=== PATIENT | male | born 1940 | race Caucasian/White ===

== ENCOUNTER 2020-02-06 10:48 | Outpatient (CLI) | payer MEDICARE, SELFPAY ==
--- NOTE | ~2020-02-06 | CT_ITS ---
EXAMINATION: CT brain wo con DATE: 02/06/2020 11:28 INDICATION: Impaired balance, gait, in appearance. Decreased functional mobility. TECHNIQUE: Computed tomography (CT) of the head was performed without intravenous contrast. The mA wa s adjusted according to patient size. Iterative reconstruction technique was employed. Exam dose: 68 1.00 mGy-cm total exam DLP. COMPARISON: None FINDINGS: No intracranial mass lesion or hemorrhage or cerebrovascular accident. No midline shift or mass effect. Mild nonspecific diminished attenuation of the cerebral white matter is likely due to ch ronic small vessel ischemic changes. Mild cerebral atherosclerosis. There is mild to moderate cerebral and cerebellar volume loss not inconsistent with age. No subdural or epidural hematoma. No fracture or bone destruction of the cranial vault. Included paranasal sinuses and mastoid air cell s are unremarkable. IMPRESSION: Cerebral atherosclerosis and chronic small vessel ischemic changes of the cerebral white matter Examination is unremarkable for age. Reviewed, dictated and finalized at Location [facility]. Reviewed, dictated and finalized at location A.
[2020-02-06 12:07] LABS: Alanine Aminotransferase 82 U/L (4-50); Albumin Level 3.8 g/dL (3.5-5.1); Alkaline Phosphatase 61 U/L (38-126); Aspartate Amino Transferase 66 U/L (17-59); Bilirubin,Total 0.8 mg/dL (0.2-1.3); Blood Urea Nitrogen 16 mg/dL (9-20); Calcium 8.9 mg/dL (8.4-10.2); Carbon Dioxide 30 mmol/L (22-30); Chloride 103 mmol/L (98-107); Estimated Glomerular Filt Rate 53; Glucose 85 mg/dL (75-110); Potassium 4.3 mmol/L (3.4-5.0); Sodium 138 mmol/L (137-145)
[2020-02-06 13:07] LABS: Free T4 Free Thyroxine 1.43 ng/mL (0.78-2.19)
== END 2020-02-06 10:49 | disposition home or self-care (01) ==
PROVIDERS: PCP Internal Medicine; Visit Provider Internal Medicine
DX: Z74.09 Other reduced mobility (principal); I10 Essential (primary) hypertension; E03.9 Hypothyroidism, unspecified; I67.2 Cerebral atherosclerosis
CPT/HCPCS: 36415; 70450; 80053; 84439; 84443

== ENCOUNTER 2020-03-05 13:30 | Outpatient (RCR) | payer MEDICARE, SELFPAY ==
[2020-02-15 13:04] VITALS: BMI 28.7
--- NOTE | 2020-03-05 12:50 | PCWOUND ---
WOCN NOTE patient did not show up for scheduled appointment. WOCN spoke with patient yesterday 03/04/20 about appointment for today. Call made to patient, patient states he had an ablation done and can not move. Patient will contact wound center if appointment is needed in the future.
== END 2020-05-06 07:43 | disposition home or self-care (01) ==
LOC: ANHWOC 13:30
PROVIDERS: PCP Internal Medicine; Visit Provider Internal Medicine
DX: K61.1 Rectal abscess (principal)
CPT/HCPCS: 99212; G0463

== ENCOUNTER 2020-05-16 09:16 | Outpatient (CLI) | payer MEDICARE, SELFPAY ==
--- NOTE | ~2020-05-16 | MR_ITS ---
EXAMINATION: MR brain/brain stem wo/w con DATE: 05/16/2020 11:25 INDICATION: Tremor. Vertigo. Cognitive disorder. Dizziness. TECHNIQUE: Magnetic resonance imaging (MRI) of the brain and brainstem was performed without and with 15 mL MultiHance intravenous contrast. Sequences included sagittal and axial T1-weighted FSE, axial diffusion-weighted FS EPI, axial T2*-weighted GRE, axial T2-weighted FLAIR Propeller, and axial T2-we ighted Propeller. Postcontrast sequences included axial and coronal T1-weighted FSE. Apparent diffusi on coefficient (ADC) maps were created. COMPARISON: Head CT 02/06/2020 FINDINGS: There are old infarcts in the cerebellum bilaterally. There are scattered areas of nonspeci fic increased T2-weighted signal intensity in the cerebral white matter. There is no intracranial hem orrhage, acute infarction, or abnormal intracranial mass lesion. The ventricles are normal in size. T here are likely changes of ocular lens replacement surgeries. The paranasal sinuses are clear. There is a trace right mastoid effusion. IMPRESSION: 1. Old infarcts in the cerebellum. 2. Moderate nonspecific cerebral white matter disease, which likely represents chronic small vessel i schemic disease. Reviewed, dictated and finalized at location A. IMPRESSION: 1. Old infarcts in the cerebellum. 2. Moderate nonspecific cerebral white matter disease, which likely represents chronic small vessel ischemic disease.
--- NOTE | ~2020-05-16 | MR_ITS ---
EXAMINATION: MR cervical spine wo/w con DATE: 05/16/2020 11:25 INDICATION: Tremor, vertigo, dizziness, cognitive disorder. TECHNIQUE: Magnetic resonance imaging (MRI) of the cervical spine was performed without and with 15 m L MultiHance intravenous contrast. Sequences included sagittal and axial T2-weighted FSE, sagittal ST IR FSE, and sagittal and axial T1-weighted FSE. Postcontrast sequences included sagittal and axial T1 -weighted FS FSE. COMPARISON: None FINDINGS: There is kyphosis of cervical spine. There is 3 mm anterolisthesis of C4 on C5 and C7 on T1 . There is mild chronic anterior wedging of C5 and C7 vertebral bodies. There is severely decreased d isc height from C4-C5 through C7-T1. 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 The following disc levels are specifically discussed: C2-C3: There is a left central extrusion. There is severe left uncovertebral joint osteoarthritis. Th ere is severe bilateral facet joint osteoarthritis. There is severe left neural foraminal stenosis. T here is mild central canal stenosis. C3-C4: The disc is bulging. There is moderate bilateral uncovertebral joint osteoarthritis. There is severe right and moderate left facet joint osteoarthritis. There is moderate bilateral neural foramin al stenosis. There is mild central canal stenosis. C4-C5: The disc is bulging. There is moderate right and severe left uncovertebral joint osteoarthriti s. There is mild right and severe left facet joint osteoarthritis. There is mild right and moderate l eft neural foraminal stenosis. There is mild central canal stenosis. C5-C6: The disc is bulging. There is severe bilateral uncovertebral joint osteoarthritis. There is mi ld bilateral facet joint osteoarthritis. There is severe right and moderate left neural foraminal emery nosis. There is mild central canal stenosis with ventral indentation of the spinal cord. C6-C7: The disc is bulging. There is severe bilateral uncovertebral joint osteoarthritis. There is mo derate bilateral facet joint osteoarthritis. There is mild bilateral neural foraminal stenosis. There is mild central canal stenosis. C7-T1: The disc is bulging. There is severe bilateral uncovertebral joint osteoarthritis. There is se duke bilateral facet joint osteoarthritis. There is mild right and moderate left neural foraminal emery nosis. There is mild central canal stenosis. IMPRESSION: 1. 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 2. Severe cervical spondylosis. Reviewed, dictated and finalized at location A.
[2020-05-16 10:05] LABS: Estimated Glomerular Filt Rate 59
== END 2020-05-16 09:17 | disposition home or self-care (01) ==
PROVIDERS: PCP Internal Medicine; Visit Provider Internal Medicine
DX: R25.1 Tremor, unspecified (principal); R42 Dizziness and giddiness; F09 Unspecified mental disorder due to known physiological condition; M47.812 Spondylosis without myelopathy or radiculopathy, cervical region; G95.0 Syringomyelia and syringobulbia; R90.82 White matter disease, unspecified; Z86.73 Personal history of transient ischemic attack (TIA), and cerebral infarction without residual deficits
CPT/HCPCS: 36415; 70553; 72156; A9577

== ENCOUNTER 2020-06-18 14:19 | Outpatient (CLI) | payer MEDICARE, SELFPAY ==
--- NOTE | ~2020-06-18 | US_ITS ---
EXAMINATION: US carotid duplex BI DATE: 06/18/2020 14:52 INDICATION: Carotid bruit. TECHNIQUE: Grayscale, color Doppler, and pulsed Doppler images of the cervical carotid arteries were obtained. The degree of vessel stenosis is placed in one of the following categories: normal, <50%, 5 0-69%, >=70% but less than near-occlusion, near-occlusion, or total occlusion. Note that percent sten osis relative to normal distal artery lumen diameter is indirectly measured from velocity measurement s as described by Dagoberto, et al. Radiology 2003; 229:340-346. COMPARISON: None. FINDINGS: RIGHT: The right common carotid artery (CCA) peak systolic velocity (PSV) is 93 cm/s. The right internal car otid artery (ICA) PSV is 69 cm/s. The right ICA end-diastolic velocity (EDV) is 16 cm/s. The right IC A/CCA PSV ratio is 0.7. Grayscale and color Doppler images yield an estimate of <50% diameter reducti on from plaque in the ICA. There is antegrade flow in the right vertebral artery. LEFT: The left CCA PSV is 95 cm/s. The left ICA PSV is 71 cm/s. The left ICA EDV is 19 cm/s. The left ICA/C CA PSV ratio is 0.8. Grayscale and color Doppler images yield an estimate of <50% diameter reduction from plaque in the ICA. There is antegrade flow in the left vertebral artery. IMPRESSION: 1. <50% stenosis in the right internal carotid artery. 2. <50% stenosis in the left internal carotid artery. Reviewed, dictated and finalized at location A.
== END 2020-06-18 14:20 | disposition home or self-care (01) ==
PROVIDERS: PCP Internal Medicine; Visit Provider Internal Medicine
DX: R09.89 Other specified symptoms and signs involving the circulatory and respiratory systems (principal); Z86.73 Personal history of transient ischemic attack (TIA), and cerebral infarction without residual deficits; I65.23 Occlusion and stenosis of bilateral carotid arteries
CPT/HCPCS: 93880

== ENCOUNTER → 2021-11-27 13:58 | Outpatient (REF) | payer MEDICARE, SELFPAY | LOC: ANHLAB 13:58 | PROVIDERS: PCP Internal Medicine; Visit Provider Nurse Practitioner | DX: L98.418 Non-pressure chronic ulcer of buttock with other specified severity (principal) | CPT/HCPCS: 88305 ==

== ENCOUNTER 2022-07-08 16:27 | Outpatient (CLI) | payer MEDICARE, SELFPAY ==
--- NOTE | ~2022-07-08 | XR_ITS ---
XR lumbar spine 2-3V 07/08/2022 17:05 Indication: Low back pain Procedure: 4 views lumbar spine Comparison: No prior studies for comparison. Findings: There is severe disc narrowing at all lumbar levels. There is reversal of normal lumbar иван dosis. There is endplate hypertrophy at multiple levels. There is mild levoscoliosis. No acute fractu re or traumatic malalignment. No evidence for spondylolisthesis. Impression: 1: Severe lumbar spondylosis with levoscoliosis. Reviewed, dictated and finalized at location A. Impression: 1: Severe lumbar spondylosis with levoscoliosis.
--- NOTE | ~2022-07-08 | XR_ITS ---
XR thoracic spine 3V DATE: 07/08/2022 17:04 INDICATION: Back pain TECHNIQUE: AP, lateral, swimmer views COMPARISON: None FINDINGS: There is multilevel degenerative disc disease of the cervical spine, particularly severe at C4, C5-6, C6-7. There is mild dextroscoliosis of the thoracic spine. Multilevel degenerative disc disease and diffuse idiopathic skeletal hyperostosis of the thoracic spi ne. The thoracic pedicles appear intact. No fracture or bone destruction of the thoracic spine is noted. No paraspinal soft tissue thickening. Osteopenia IMPRESSION: Osteopenia Mild dextroscoliosis of the thoracic spine Diffuse idiopathic skeletal hyperostosis multilevel degenerative disc disease of the thoracic spine Severe degenerative disc disease of the lower cervical spine Reviewed, dictated and finalized at location B. IMPRESSION: Osteopenia Mild dextroscoliosis of the thoracic spine Diffuse idiopathic skeletal hyperostosis multilevel degenerative disc disease o f the thoracic spine Severe degenerative disc disease of the lower cervical spine
== END 2022-07-08 16:28 | disposition home or self-care (01) ==
LOC: ANHIMG 16:30
PROVIDERS: PCP Internal Medicine; Visit Provider Internal Medicine
DX: M47.812 Spondylosis without myelopathy or radiculopathy, cervical region (principal); M48.14 Ankylosing hyperostosis [Forestier], thoracic region; M41.9 Scoliosis, unspecified
CPT/HCPCS: 72072; 72100

== ENCOUNTER 2022-10-28 12:56 | Outpatient (CLI) | payer MEDICARE, SELFPAY ==
--- NOTE | ~2022-10-28 | XR_ITS ---
EXAMINATION: XR toe 1st RT min 2V INDICATION: Right first toe pain TECHNIQUE: Four views of the right first toe are obtained. COMPARISON: None available FINDINGS: Bone alignment is normal. There is no fracture. There is mild osteoarthritis at the first m etatarsophalangeal joint and in the visualized interphalangeal joints. There is mild soft tissue swel ling of the toe. IMPRESSION: 1. No acute osseous abnormality. Reviewed, dictated and finalized at location B. RY/SAFETY HAZARD ASSESSMENT
== END 2022-10-28 12:57 | disposition home or self-care (01) ==
LOC: ANHIMG 12:58
PROVIDERS: PCP Internal Medicine; Visit Provider Internal Medicine
DX: M79.674 Pain in right toe(s) (principal)
CPT/HCPCS: 73660

== ENCOUNTER 2023-02-01 09:00 | Outpatient (NON) | payer MEDICARE, SELFPAY | END 2023-02-01 09:01 | disposition home or self-care (01) | LOC: ANHLAB 02-03 11:22 | PROVIDERS: PCP Internal Medicine; Visit Provider Nurse Practitioner | DX: I87.2 Venous insufficiency (chronic) (peripheral) (principal); L28.0 Lichen simplex chronicus | CPT/HCPCS: 88305 ==

== ENCOUNTER 2023-07-26 09:32 | Outpatient (CLI) | payer MEDICARE, SELFPAY ==
[2023-07-26 11:55] LABS: Basophils Percent Auto 0.6 % (0.2-1.2); Eosinophils Absolute Auto 0.2 K/mm3 (0-0.3); Eosinophils Percent Auto 2.3 % (0-4.4); Hematocrit 39.8 % (42.0-52.0); Hemoglobin 12.9 g/dL (14.0-18.0); Immature Granulocyte Absolute 0.04 K/mm3 (0.00-0.031); Immature Granulocyte Percent A 0.6 % (0-0.5); Lymphocytes Absolute Auto 1.51 K/mm3 (0.9-3.2); Lymphocytes Percent Auto 22.7 % (18.3-44.2); Mean Corpuscular HGB Conc 32.4 g/dl (32-36); Mean Corpuscular Hemoglobin 32.4 pg (26-34); Mean Platelet Volume 8.9 fl (7.4-10.4); Monocytes Absolute Auto 0.7 K/mm3 (0.1-0.6); Monocytes Percent Auto 9.9 % (2.6-8.5); Neutrophils Absolute Auto 4.2 K/mm3 (1.3-6.7); Neutrophils Percent Auto 63.9 % (45.5-73.1); Platelet Count Result 209 k/mm3 (150-375); Red Blood Count 3.98 M/mm3 (4.6-6.20); Red Cell Distribution Width 13.7 % (11.5-14.5); White Blood Count 6.6 K/mm3 (4.5-10.0)
[2023-07-26 12:02] LABS: Anion Gap 3 mmol/L (8-16); Blood Urea Nitrogen 20 mg/dL (9-20); Calcium 9.4 mg/dL (8.4-10.2); Carbon Dioxide 30 mmol/L (22-30); Chloride 104 mmol/L (98-107); Estimated Glomerular Filt Rate > 60; Glucose 64 mg/dL (65-110); Potassium 4.4 mmol/L (3.4-5.0); Sodium 137 mmol/L (137-145)
== END 2023-07-26 09:33 | disposition home or self-care (01) ==
PROVIDERS: PCP Internal Medicine; Visit Provider Internal Medicine
DX: R19.00 Intra-abdominal and pelvic swelling, mass and lump, unspecified site (principal); Z79.899 Other long term (current) drug therapy; S39.91XA Unspecified injury of abdomen, initial encounter
CPT/HCPCS: 36415; 80048; 85025

== ENCOUNTER 2023-07-30 10:37 | Outpatient (CLI) | payer MEDICARE, SELFPAY ==
--- NOTE | ~2023-07-30 | CT_ITS ---
CT of the Abdomen: Indication: Abdominal injury Technique: 2.5 mm axial scans were obtained through the abdomen following intravenous administration of 100 cc of Omnipaque 350. Dose reduction technique was used on this scan by utilizing automated ex posure control and iterative reconstruction technique. The dose-length product (DLP) was 868.66 mGy-c m. Findings: Scans through the lung bases are unremarkable. The liver, spleen, pancreas, gallbladder, adrenals and kidneys are within normal limits. There are at herosclerotic calcifications of the aorta. No lymphadenopathy. Visualized bowel loops are unremarkable. No ascites seen. There is an intramuscular hematoma involving the left upper abdominal wall/upper rectus abdominis mus jennie, measuring up to approximately 10.6 x 4.6 cm in transverse dimensions, and 9.4 cm in craniocaudal extent. There is associated subcutaneous soft tissue infiltration of the anterior subcutaneous soft tissues of the abdomen. Impression: Large intramuscular hematoma at the upper left rectus abdominis muscle, as detailed above. Reviewed, dictated and finalized at [facility]. Impression: Large intramuscular hematoma at the upper left rectus abdominis muscle, as deta iled above.
== END 2023-07-30 10:38 | disposition home or self-care (01) ==
PROVIDERS: PCP Internal Medicine; Visit Provider Internal Medicine
DX: S39.91XA Unspecified injury of abdomen, initial encounter (principal); R19.09 Other intra-abdominal and pelvic swelling, mass and lump; S30.1XXA Contusion of abdominal wall, initial encounter
CPT/HCPCS: 74160; Q9967

== ENCOUNTER 2023-12-16 14:01 | Outpatient (CLI) | payer MEDICARE, SELFPAY ==
--- NOTE | ~2023-12-16 | XR_ITS ---
Left Shoulder Technique: AP and scapular Y views were obtained. Clinical History: Pain Findings: No fracture or dislocation is seen. There is moderate osteoarthritis of the glenohumeral klaus int with probable small loose body in the axillary pouch. There is minimal AC joint degenerative sweeney ge. Soft tissues are unremarkable. Impression: Moderate glenohumeral joint degenerative change with probable small loose body in the axillary pouch. Reviewed, dictated and finalized at location M. Impression: Moderate glenohumeral joint degenerative change with probable small loose body in the axillary pouch.
== END 2023-12-16 14:02 | disposition home or self-care (01) ==
LOC: ANHIMG 14:03
PROVIDERS: PCP Internal Medicine; Visit Provider Internal Medicine
DX: M19.012 Primary osteoarthritis, left shoulder (principal)
CPT/HCPCS: 73030

== ENCOUNTER 2024-03-30 09:43 | Outpatient (RCR) | payer MEDICARE, SELFPAY | END 2024-03-30 23:59 | disposition home or self-care (01) | LOC: ANHAUDIO 09:43 | PROVIDERS: PCP Internal Medicine; Visit Provider Internal Medicine | DX: Z46.1 Encounter for fitting and adjustment of hearing aid (principal) | CPT/HCPCS: 92593 ==

== ENCOUNTER 2024-04-28 12:57 | Outpatient (CLI) | payer MEDICARE, SELFPAY | END 2024-04-28 12:58 | disposition home or self-care (01) | LOC: ANHAUDIO 12:57 | PROVIDERS: PCP Internal Medicine; Visit Provider Internal Medicine | DX: H90.3 Sensorineural hearing loss, bilateral (principal); Z97.4 Presence of external hearing-aid | CPT/HCPCS: 92557; 92567 ==

== ENCOUNTER 2024-06-08 09:16 | Outpatient (CLI) | payer MEDICARE, SELFPAY ==
--- NOTE | ~2024-06-08 | XR_ITS ---
EXAMINATION: XR lg joint inject/asp w image DATE: 06/08/2024 10:18 INDICATION: Primary osteoarthritis, left shoulder. TECHNIQUE: A time-out was performed to verify the patient's name, date of , and procedure to b e performed. The procedure including the risks, benefits, and alternatives was discussed with the pat ient. Risks discussed included bleeding and infection. The patient understood the risks and agreed to proceed. The skin overlying the left glenohumeral joint was prepped and draped in usual sterile fas hion. Anesthetic was administered with 1% lidocaine subcutaneously. A 22 G needle was advanced unde r fluoroscopic guidance into the joint. Subsequently, injectate consisting of 4 mL 1% lidocaine and 1 mL 80 mg/mL Depo-Medrol was instilled. The needle was removed and the entry site was cleaned and d ressed. There were no immediate complications. Fluoroscopy exposure time was 0.1 minutes. The total number of images was 1. FINDINGS: Real-time fluoroscopy demonstrates the needle in the left glenohumeral joint. Patient's victoria n prior to procedure:3/10. Patient's pain following the procedure: 0/10. IMPRESSION: 1. Fluoroscopy guided left glenohumeral joint injection of local anesthetic and steroid with decrease in the patient's presenting pain. Reviewed, dictated and finalized at location A.
== END 2024-06-08 09:17 | disposition home or self-care (01) ==
PROVIDERS: PCP Internal Medicine; Visit Provider Orthopaedic Surgery
DX: M19.012 Primary osteoarthritis, left shoulder (principal)
CPT/HCPCS: 20610; 77002; J1010

== ENCOUNTER 2024-07-19 11:40 | Outpatient (CLI) | payer MEDICARE, SELFPAY ==
--- NOTE | ~2024-07-19 | XR_ITS ---
Clinical Indication: Cough, congestion PA and lateral views of the chest: Comparison: 09/09/2019 Findings: Probable mild left basilar atelectatic change, otherwise clear lungs. Cardiomediastinal si lhouette is within normal limits. Bones and soft tissues are unremarkable. Impression: . Probable mild left basilar atelectatic change, otherwise clear lungs. Reviewed, dictated and finalized at location M. Impression: . Probable mild left basilar atelectatic change, otherwise clear lungs.
--- NOTE | ~2024-07-19 | XR_ITS ---
3 VIEWS PARANASAL SINUSES Ordering provider: Luke Duarte MD History: . COUGH, CONGESTION, NASAL DRIPPING X 1 MONTH . Comparison: None. FINDINGS: BONES: No acute fracture as visualized. PARANASAL SINUSES: Well aerated. No air fluid levels. SOFT TISSUES: Normal. IMPRESSION: NO EVIDENCE OF SINUS DISEASE. CONSIDER FOLLOW UP CT PARANASAL SINUSES IF THERE IS CONTINUED CONCERN. Reviewed, dictated and finalized at location A.
== END 2024-07-19 11:41 | disposition home or self-care (01) ==
LOC: ANHIMG 11:41
PROVIDERS: PCP Internal Medicine; Visit Provider Internal Medicine
DX: J34.89 Other specified disorders of nose and nasal sinuses (principal); R05.9 Cough, unspecified
CPT/HCPCS: 70220; 71046

== ENCOUNTER 2024-12-07 14:54 | Outpatient (CLI) | payer MEDICARE, SELFPAY ==
--- NOTE | 2024-12-07 | ECG_ITS ---
Test Date: 2024-12-07 15:26:27 Measurements Intervals [place] Rate: 71 P: 80 LA: 256 QRS: 10 QRSD: 101 T: 39 QT: 448 QTc: 489 Interpretive Statements SINUS RHYTHM WITH FIRST DEGREE AV BLOCK WITH SUPRAVENTRICULAR TRIGEMINY INFERIOR INFARCT, AGE INDETERMINATE PROLONGED QT INTERVAL BASELINE ARTIFACT- I, II, III, AVR, AVL, AVF ABNORMAL ECG No previous ECG available for comparison Electronically Signed On 12-07-2024 15:35:27 SPED TEACHER by Trent Gonzalez D.O.
--- OUTSIDE RECORDS SUMMARY | 2024-12-07 15:03 | XMS_ITS | Encounter Summary ---
Author Organization [facility] Address [facility] [place] [address] Care Team Providers Care Public Health Policy Analyst Name Role Phone Susan Carmen MD Unavailable [phone] Luke Duarte MD Primary Care Provider [phone] Fly Crum MD Unavailable Kashmir Lopez MD Primary Care Provider [phone] Luke Duarte MD Primary Care Provider [phone] Nando Adler MD Unavailable [phone] Encounter Details Date Type Department Care Team (Late st Contact Info) Description 03/23/2016 Abstract [facility] AT [address] [address] Susan Carmen MD [address] [id number] Social History Tobacco Use Types Packs/Day Years Used Date Smoking Tobacco: Former Alcohol Use Standard Drinks/Week Comments Yes 0 (1 standard drink = 0.6 oz pure alcohol) Drinks 2-3 glasses of wine per day Sex and Gender Information Value Date Recorded Sex Assigned at Not on file Legal Sex Male 11:46 PM CDT Gender Identity Not on file Sexual Orientation Not on file Occupation Industry Job Start Date Job End Date Works in [employer] Not on file Not on file Not on file documented as of this encounter Plan of Treatment Upcoming Encounters Date Type Department Care Team (Late st Contact Info) Description 05/07/2025 1:00 PM CDT Office Visit [facility] [address] [place] [address] Susan Carmen MD [address] [place] [address] documented as of this encounter Visit Diagnoses Not on filedocumented in this encounter Additional Health Concerns Infection Onset Date Last Indicated Resolved Time COVID-19 Rule Out 02/26/2020 02/26/2020 02/28/2020 8:44 AM CDT documented as of this encounter Care Teams Public Health Policy Analyst Relationship Specialty Start Date End Date Luke Duarte MD [address] [place] [address] PCP - General INTERNAL MEDICINE 03/18/16 10/17/18 Kashmir Lopez MD [address] [place] [address] PCP - General INTERNAL MEDICINE 10/18/18 10/17/19 Luke Duarte MD [address] [place] [address] PCP - General INTERNAL MEDICINE 10/18/19 Susan Carmen MD [address] [place] [address] [place] [employer] CARDIOVASCULAR DISEASE 04/07/16 Fly Crum MD [address] [place] [address] EP Screen Writer Electrophysiology 07/10/16 Nando Adler MD [address] [place] [address] CARDIAC ELECTROPHYSIOLOGY 09/17/22 documented as of this encounter
--- OUTSIDE RECORDS SUMMARY | 2024-12-07 15:03 | XMS_ITS | Encounter Summary ---
Author Organization [facility] Address [facility] [place] [address] Care Team Providers Care Community Pharmacist Name Role Phone Susan Carmen MD Unavailable [phone] Luke Duarte MD Primary Care Provider [phone] Fly Crum MD Unavailable Kashmir Lopez MD Primary Care Provider [phone] Luke Duarte MD Primary Care Provider [phone] Nando Adler MD Unavailable [phone] Encounter Details Date Type Department Care Team (Late Contact Info) Description 11/29/2017 Abstract [facility] at [address] [address] Gayatri Polanco MA Social History Tobacco Use Types Packs/Day Years Used Date Smoking Tobacco: Never Smokeless Tobacco: Never Alcohol Use Standard Drinks/Week Comments Yes 0 (1 standard drink = 0.6 oz pure alcohol) Drinks 2-3 glasses of wine per day Sex and Gender Information Value Date Recorded Sex Assigned at Not on file Legal Sex Male 11:46 PM CDT Gender Identity Not on file Sexual Orientation Not on file 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 [address] [place], [place] [id number] documented as of this encounter Procedures Procedure Name Priority Date/Time Associated Diagnosis Comments PROTIME (OUTSIDE LAB) Routine 10/12/2019 PROTIME (OUTSIDE LAB) Routine 06/28/2019 PROTIME (OUTSIDE LAB) Routine 03/22/2019 PROTIME (OUTSIDE LAB) Routine 12/29/2018 PROTIME (OUTSIDE LAB) Routine 11/03/2018 PROTIME (OUTSIDE LAB) Routine 08/24/2018 PROTIME (OUTSIDE LAB) Routine 07/28/2018 PROTIME (OUTSIDE LAB) Routine 07/15/2018 BASIC METABOLIC PANEL Routine 07/15/2018 PROTIME (OUTSIDE LAB) Routine 05/25/2018 PROTIME (OUTSIDE LAB) Routine 03/31/2018 PROTIME (OUTSIDE LAB) Routine 02/25/2018 PROTIME (OUTSIDE LAB) Routine 01/20/2018 PROTIME (OUTSIDE LAB) Routine 11/26/2017 documented in this encounter Results * PROTIME (OUTSIDE LAB) (10/12/2019) PROTIME 45.5 INR 4.4 10/12/2019 [facility] Abstract LAB-OUTSIDE/ABSTRACTED Final Result * PROTIME (OUTSIDE LAB) (06/28/2019) PROTIME 22.8 INR 2.3 06/28/2019 us Doc [facility] Abstract LAB-OUTSIDE/ABSTRACTED Final Result * PROTIME (OUTSIDE LAB) (03/22/2019) PROTIME 19.2 INR 1.9 03/22/2019 us Doc [facility] Abstract LAB-OUTSIDE/ABSTRACTED Final Result * PROTIME (OUTSIDE LAB) (12/29/2018) PROTIME 22.3 INR 2.3 12/29/2018 us Doc [facility] Abstract LAB-OUTSIDE/ABSTRACTED Final Result * PROTIME (OUTSIDE LAB) (11/03/2018) PROTIME 25.5 INR 2.5 11/03/2018 us Doc [facility] LAB-OUTSIDE/ABSTRACTED Final Result * PROTIME (OUTSIDE LAB) (08/24/2018) PROTIME 21.6 INR 2.2 08/24/2018 us [facility] LAB-OUTSIDE/ABSTRACTED Final Result * PROTIME (OUTSIDE LAB) (07/28/2018) PROTIME 17.1 INR 1.7 07/28/2018 us Doc [facility] Abstract LAB-OUTSIDE/ABSTRACTED Final Result * PROTIME (OUTSIDE LAB) (07/15/2018) PROTIME 15.8 INR 1.6 07/15/2018 us Doc [facility] LAB-OUTSIDE/ABSTRACTED Final Result * BASIC METABOLIC PANEL (07/15/2018) SODIUM S/P/B 138 POTASSIUM S/P/B 4.1 CO2 24 CHLORIDE S/P/B 106 GLUCOSE 71 mg/dL CALCIUM S/P/B 8.9 BUN 16 CREATININE S/P/B 1.16 0.7 - 1.3 EGFR AFR. AMER. 71 EGFR NON-AFR. AMER. 61 <=90 07/15/2018 us [facility] Abstract LABORATORY Final Result * PROTIME (OUTSIDE LAB) (05/25/2018) PROTIME 13.9 INR 1.4 05/25/2018 us Doc [facility] Abstract LAB-OUTSIDE/ABSTRACTED Final Result * PROTIME (OUTSIDE LAB) (03/31/2018) PROTIME 28.8 INR 2.8 03/31/2018 us Doc [facility] LAB-OUTSIDE/ABSTRACTED Final Result * PROTIME (OUTSIDE LAB) (02/25/2018) PROTIME 19.0 INR 1.8 02/25/2018 us Doc [facility] LAB-OUTSIDE/ABSTRACTED Final Result * PROTIME (OUTSIDE LAB) (01/20/2018) PROTIME 25.9 INR 2.5 01/20/2018 us Doc [facility] LAB-OUTSIDE/ABSTRACTED Final Result * PROTIME (OUTSIDE LAB) (11/26/2017) PROTIME 22.2 INR 2.2 11/26/2017 us Doc [facility] LAB-OUTSIDE/ABSTRACTED Final Result documented in this encounter Visit Diagnoses Not on filedocumented in this encounter Additional Health Concerns Infection Onset Date Last Indicated Resolved Time COVID-19 Rule Out 02/26/2020 02/26/2020 02/28/2020 8:44 AM CDT documented as of this encounter Care Teams Community Pharmacist Relationship Specialty Start Date End Date Luke Duarte MD [facility]. [facility] [address] [place] [address] PCP - General INTERNAL MEDICINE 03/18/16 10/17/18 Kashmir Lopez MD [address] [place] [address] PCP - General INTERNAL MEDICINE 10/18/18 10/17/19 Luke Duarte MD [address] [place] [id number] PCP - General INTERNAL MEDICINE 10/18/19 Susan Carmen MD [facility]. [address] [place] [address] [place] [employer] CARDIOVASCULAR DISEASE 04/07/16 Fly Crum MD [facility]. [address] [place], [place] [address] [employer] Electrophysiology 07/10/16 Nando Adler MD [address] [place] [address] CARDIAC ELECTROPHYSIOLOGY 09/17/22 documented as of this encounter
--- OUTSIDE RECORDS SUMMARY | 2024-12-07 15:03 | XMS_ITS | Clinical Summary ---
Author Organization [facility] Address [address] [place] [address] Care Team Providers Care Pillar Man Name Role Phone Luke Duarte MD Primary Care Provider [phone] Allergies No known active allergies Medications simvastatin (ZOCOR) 20 mg tablet Take 1 tablet (20 mg total) by mouth nightly 05/11/20 18 Active mometasone-for moterol (DULERA 200) 200-5 mcg/actuation inhaler Inhale 2 puffs 2 (two) times a day Rinse mouth with water after use. Do not swallow. 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 teacher before breakfast 10/25/19 21 Active liothyronine (CYTOMEL) 5 mcg tablet Take 1 tablet (5 mcg total) by mouth every morning 10/07/20 20 Active saw palmetto 450 mg capsule Take 1 capsule by mouth 2 (two) times a day Active fluticasone-um eclidin-vilant er (Trelegy Ellipta) 200-62.5-25 mcg inhaler Inhale 1 puff daily 1 each 11 12/17/19 23 Active metoprolol XL (TOPROL-XL) 50 mg extended release tablet Take 1 tablet (50 mg total) by mouth nightly 01/28/20 23 Active eszopiclone (LUNESTA) 3 mg tablet TAKE 1 TABLET BY MOUTH NIGHTLY AT BEDTIME 30 tablet 04/27/20 23 Active hydrOXYzine (ATARAX) 25 mg tablet 1 tablet by mouth at bedtime 30 tablet 11 05/18/20 23 Active cyclobenzaprin e (FLEXERIL) 10 mg tabletIndicati ons:Muscle Spasm Take 1 tablet (10 mg total) by mouth 3 (three) times a day as needed for muscle spasms for muscle spasms 09/16/20 23 Active warfarin (COUMADIN) 2 mg tablet Take 1 tablet (2 mg total) by mouth 5 (five) times a week 12.5mg MWFSS; 10mg TT Active pantoprazole DR (PROTONIX) 40 mg EC tabletIndicati ons:Treatment of Non-Bleeding Gastric Disorder Take 1 tablet (40 mg total) by mouth daily 30 tablet 10/03/20 23 Active lisinopriL (PRINIVIL,ZEST RIL) 10 mg tablet Take 1 tablet (10 mg total) by mouth daily 10/25/19 24 Active mirtazapine (REMERON) 30 mg tablet Take 1 tablet by mouth nightly 30 tablet 11/19/19 24 Active atorvastatin (LIPITOR) 20 mg tablet Take 1 tablet (20 mg total) by mouth daily 10/28/19 24 Active cholecalcifero l (VITAMIN D-3) 50,000 unit capsule 10/28/19 24 Active albuterol HFA (ProAir HFA) 90 mcg/actuation inhaler Inhale 2 puffs every 4 (four) hours as needed for wheezing or shortness of breath 8.5 g 5 12/14/19 24 025 Active dofetilide (TIKOSYN) 500 mcg capsule Take 1 capsule by mouth twice daily 60 capsule 2 11/17/19 25 Active dofetilide (TIKOSYN) 500 mcg capsule Take 1 capsule (500 mcg total) by mouth 2 (two) times a day 60 capsule 2 08/23/20 025 Discontinued Active Problems Problem Noted Date Diagnosed Date Cognitive decline 04/11/2024 Assessment & Plan (04/11/2024 2:52 PM CDT): Referral to audiology for hearing evaluation. Continue following up with sleep medicine. Asked CS and patient to bring updated medication list so we could review his medications. Follow-up with Dr. Carter (10/2024). SOB (shortness of breath) 12/14/2023 Anxiety 10/01/2023 Assessment & Plan (10/01/2023 5:33 PM PUBLIC SAFETY TEACHER): -Continue home remeron, buspar, atarax Atrial flutter (CMS/HCC) 08/20/2023 Assessment & Plan (10/28/2023 11:38 AM PUBLIC SAFETY TEACHER): Persistent atrial flutter treated by [facility] 2020 (Dr. Crum), 11/2022 (Dr. Adler) Recurrent persistent atrial flutter s/p repeat ablation 10/01/2023 (Dr. Adler) - ablation of 2 LA flutters He is doing well post ablation with improvement in his SOB and no known flutter recurrence Continue dofetilide until follow up Continue metoprolol XL 50 mg daily Continue warfarin for stroke risk reduction Encouraged lifestyle modifications including regular physical exercise, weight loss, limiting alcohol intake, BP control and treatment of sleep apnea to reduce AF/AFL recurrence Assessment & Plan (10/02/2023 10:54 AM PUBLIC SAFETY TEACHER): Patient presents s/p ablation for medically refractory flutter s/p prior ablations and DCCV - Bedrest per EP -Telemetry overnight - Continue/resume home warfarin: 10mg /, 12.5mg rest - Continue home dofetilide, metoprolol - PPI x30 days Cerebrovascular accident (CVA), unspecified mech anism 05/24/2023 Hypothyroid 11/26/2022 Assessment & Plan (10/01/2023 5:34 PM PUBLIC SAFETY TEACHER): -Continue home synthroid, cytomel Assessment & Plan (11/26/2022 4:20 PM PUBLIC SAFETY TEACHER): -cont home synthroid, cytomel Persistent atrial fibrillation 02/14/2021 Overview (02/14/2021): Added automatically from request for surgery [id number] Assessment & Plan (11/27/2022 3:31 PM PUBLIC SAFETY TEACHER): S/p A flutter ablation via pulmonary vein isolation - telemetry, SR - Continue home warfarin, metop, dofetilide - Lovenox bridge; f/u INR ~2/15 - Follow up in 1 months and 3 months in EP clinic as scheduled Dizziness and giddiness 07/09/2020 Assessment & Plan (04/14/2021 1:42 PM CDT): Unchanged and generally improved since stopping amiodaron last year. No falls, walking without assistance Certainly there are orthopedic contributors and his bilateral cerebellar strokes contributing but he is happy with where things are. Encouraged continued physical activity/exercise and efforts to maintain mobility/range of motion. He is comfortable with as needed follow-up I did review spinal warning signs since he does have some cervical spine stenosis, although no myelopathic findings currently, and encouraged emergent evaluation should he develop sudden change or incontinence. Assessment & Plan (07/09/2020 1:42 PM CDT): 80 year old who presents for evaluation of sensory ataxia - imbalance when he turns quickly and closes his eyes in shower. 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 It is also possible he has mild neuropathy and has learned to avoid triggering it by turning more slowly, although he does not feel he has changed anything. He does continue to have positive romberg and mild hesitancy walking so I did review fall precautions with him. He has bilateral cerebellar strokes which could contribute, but it appears these go back to 2017 as he has small bilateral lacunar strokes in cerebellum even at that time so not clear this would relate to more recent issues. Jaleesa does have severe disease noted with syringomyelia, which is another consideration of cause, although does not otherwise have significant myelopathy and would not expect recent improvement in symptoms with this. Will obtain SPEP/Immunofix to complete neuropathy work-up started by PCP, but otherwise would not pursue additional testing as he feels things have improved over last month, but consider EMG/Lspine imaging if further progression. Offered re-evaluation in 3-6 months, call if change/concern Tremor 07/09/2020 Assessment & Plan (04/14/2021 1:42 PM CDT): Mild, non bothersome Call if change Assessment & Plan (07/09/2020 1:43 PM CDT): Appears physiologic, does not bother him Call if worsening/change. 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 Atrial fibrillation (CMS/HCC) 05/19/2018 Assessment & Plan (04/14/2021 1:42 PM CDT): On coumadin High risk medication use 05/19/2018 Assessment & Plan (10/28/2023 11:35 AM PUBLIC SAFETY TEACHER): Renal function stable, eGFR 64 QT interval stable, QTc 459 ms Continue dofetilide 500 mcg BID Asthma Assessment & Plan (10/01/2023 5:32 PM PUBLIC SAFETY TEACHER): F/b OSH pulm -Breo ellipta for home inhaler Resolved Problems Problem Noted Date Diagnosed Date Resolved Date Atrial flutter (CMS/HCC) 11/26/202206/2023 Encounters Date Type Department Care Team Description 12/07/2024 Telephone [facility] [address]th [place] [address] [place] [address] Nando Adler MD PhD 11/17/2024 12:00 PM PUBLIC SAFETY TEACHER Office Visit [facility] [address] [place] [address] 6th [address] [place] [address] Alfie Ho PA Complex sleep apnea syndrome (Primary Dx); Psychophysiological insomnia 11/17/2024 Telephone [facility] [address]th [place] [address] [place] [address] Nando Adler MD PhD 11/17/2024 Orders Only [facility] [address] [place] [address] [address] [place] [address] [place] [address] Nando Adler MD PhD Atrial fibrillation, unspecified type (HCC) (Primary Dx); High risk medication use 11/17/2024 Orders Only [facility] [address] [place] [address] 8[address] [place] [address] [place] [address] Nando Adler MD PhD Atrial fibrillation, unspecified type (HCC) (Primary Dx); High risk medication use 11/17/2024 Orders Only [address] [place] [address] [place] [address] [place] [address] Jarett Mcnulty MD PhD Atrial fibrillation, unspecified type (HCC) (Primary Dx); High risk medication use 11/09/2024 Orders Only [facility] Scanning, Provider 11/03/2024 Orders Only [facility] Sc[facility], Provider 10/31/2024 4:30 PM PUBLIC SAFETY TEACHER Office Visit [facility] 6th [place] [address] [place] [address] Elena Carter MD Cognitive decline (Primary Dx) from Last 3 Months Surgical History Surgery Date Site/Laterality Comments REPLACEMENT TOTAL KNEE Left CARDIOVERSION last CV 05/04/22, 02/18/21, 11/2022 COLONOSCOPY EYE SURGERY Bilateral cataracts Medical History Medical History Date Comments Hx Other Medical 2010 Arrhythmias (Nikolai Tan) Atrial fibrillation and flutter (HCC) Sleep apnea complex ANDERS Insomnia Anxiety 10/01/2023 Atrial flutter (CMS/HCC) (HCC) 11/26/2022 Atrial flutter (CMS/HCC) (HCC) 11/26/2022 Family History Medical History Relation Name Comments Hypertension Father Family history of hypertension - (Added by TW Conv) Alzheimer's disease Mother Family h istory of Alzheimer's disease - onset age 70-75 in his mother (Added by TW Conv) Cancer Mother Family history of malignant neoplasm - (Added by TW Conv) Anesthesia problems Neg Hx Relation Name Status Comments Father Mother Social History Tobacco Use Types Packs/Day Years Used Date Smoking Tobacco: Never Passive Smoke Exposure: Past Smokeless Tobacco: Never Tobacco Cessation:Counseling Given: Not Answered Alcohol Use Standard Drinks/Week Comments No 0 (1 standard drink = 0.6 oz pur e alcohol) AUDIT-C Answer Date Recorded Q1: How often do you have a drink containing alcohol? Never 10/01/2023 Q2: How many drinks containi ng alcohol do you have on a typical day when you are drinking? Patient does not drink Q3: How often do you have si x or more drinks on one occasion? Never 10/01/2023 Personal Safety Answer Date Recorded Have you ever been in or are you currently in a harmful physical or emotional relationship or is someone making you feel afraid or unsafe? Denies 10/01/2023 Sex and Gender Information Value Date Recorded Sex Assigned at Not on file Legal Sex Male 1:59 AM PUBLIC SAFETY TEACHER Gender Identity Not on file Sexual Orientation Not on file Obstetrics History Last Filed Vital Signs Vital Sign Reading Time Taken Comments Blood Pressure 148/73 11/17/2024 11:44 AM PUBLIC SAFETY TEACHER Pulse 80 11/17/2024 11:44 AM PUBLIC SAFETY TEACHER Temperature 36.9 C (98.5 F) 11/17/2024 11:44 AM PUBLIC SAFETY TEACHER Respiratory Rate 18 12/14/2023 1:53 PM PUBLIC SAFETY TEACHER Oxygen Saturation 99% 11/17/2024 11:44 AM PUBLIC SAFETY TEACHER Inhaled Oxygen Concentration - - Weight 92.1 kg (203 lb) 11/17/2024 11:44 AM PUBLIC SAFETY TEACHER Height 177.8 cm (5' 10 ) 11/17/2024 11:44 AM PUBLIC SAFETY TEACHER Body Mass Index 29.13 11/17/2024 11:44 AM PUBLIC SAFETY TEACHER Plan of Treatment Health Maintenance Due Date Last Done Comments Depression Screening 1942 DTaP/Tdap/Td Vaccine (1 - Tdap) 1953 Hepatitis B Screening 01/03/1960 Zoster Vaccine (1 of 2) 01/03/1992 Well Visit 65+ 2007 Pneumococcal vaccine 65+ (2 of 2 - PPSV23) 08/28/2019 07/03/2019 Influenza Vaccine (#1) 2024 6, 09/06/2016, 08/10/2012 Fall Risk Assessment 10/02/2024 10/02/2023 Medical Devices Implanted Type Area Laboratory Director Device Identifier Shelf Expiration Date Model / Serial / Lot [employer] Vascade Mvp 6-12fr Venous Closure [id number] - [id number] - [id number] Implanted:Qty: 1 on 10/01/2023 by Michael Britt MD at [facility] Collagen Right: Femoral Vein [employer] 06/03/2025 800-612C- 10U / [id number] / [id number] [employer] Vascade Mvp 6-12fr Venous Closure [id number] - [id number] - [id number] Implanted:Qty: 1 on 10/01/2023 by Michael Britt MD at [facility] Collagen Right: Femoral Vein [employer] 06/03/2025 800-612C- 10U / [id number] 24A / [id number] [employer] Vascade Mvp 6-12fr Venous Closure [id number] - [id number] - [id number] Implanted:Qty: 1 on 10/01/2023 by Michael Britt MD at [facility] Collagen Left: Femoral Vein [employer] 06/03/2025 800-612C- 10U / [id number] 24A / [id number] [id number] [employer] Device Closure Vascade Od5 Fr Femoral Artery [id number] - [id number] - [id number] Implanted:Qty: 1 on 10/01/2023 by Michael Britt MD at [facility] Collagen Left: Femoral Vein [employer] 06/17/2025 [id number] -[id number] / [id number] / [id number] Screw Screw Knee Description:Left knee replac ement Procedures Procedure Name Priority Date/Time Associated Diagnosis Comments BASIC METABOLIC PANEL Routine 11/17/2024 1:53 PM PUBLIC SAFETY TEACHER Atrial fibrillation, unspecified type (HCC) High risk medication use SCAN - NEUROLOGY 11/09/2024 4:58 PM PUBLIC SAFETY TEACHER SCAN - RADIOLOGY/IMAGING 11/03/2024 4:31 PM PUBLIC SAFETY TEACHER from Last 3 Months Results * Basic metabolic panel (11/17/2024 1:53 PM PUBLIC SAFETY TEACHER) Pathologist [facility] Glucose 84 70 - 99 mg/dL [facility] - 01 BUN 22 8 - 27 mg/dL [facility] - 01 Creatinine, Serum 0.99 0.76 - 1.27 mg/dL [facility] - 01 eGFR 76 >59 mL/min/1.73 [facility] - 01 BUN/creat ratio 22 10 - 24 [facility] - 01 Sodium 138 134 - 144 mmol/L [facility] - 01 Potassium, sr 4.8 3.5 - 5.2 mmol/L [facility] - 01 Chloride 103 96 - 106 mmol/L [facility] - 01 CO2 24 20 - 29 mmol/L [facility] - 01 Calcium 9.2 8.6 - 10.2 mg/dL [facility] - 01 Blood 11/17/2024 1:53 PM PUBLIC SAFETY TEACHER 11/17/2024 Narrative [facility] - 11/20/2024 7:36 AM PUBLIC SAFETY TEACHER Performed at: 01 - [address], [place], [place] [id number] Housing Inspectors: Tank Acuna PhD, Phone: [phone] Nando Adler MD PhD LAB BLOOD ORDERABLES E dited Result - Final [facility] - 01 * SCAN - NEUROLOGY (11/09/2024 4:58 PM PUBLIC SAFETY TEACHER) Anatomical Region Laterality Modality Other us Provider Scanning Final Result * SCAN - RADIOLOGY/IMAGING (11/03/2024 4:31 PM PUBLIC SAFETY TEACHER) Anatomical Region Laterality Modality Other Provider Scanning Final Result from Last [address] [place] [address] [facility] HMO REF MEDICARE SOLUTIONS Member Subscriber Plan / Payer (Ef fective 2022-Present) Name:Johnhany Rolando Erasmo Relation to Subscriber:Self Name:Rolando Hull Payer ID:[id number] (NAIC) Type:[facility] MEDIC[facility] Address: [place] [phone] MEDICARE SOLUTIONS Member Subscriber Plan / Payer (Ef fective 2022-Present) Name:Rolando Hull Relation to Subscriber:Self Name:Rolando Hull Erasmo Payer ID:[id number] (NAIC) Type:[facility] MEDICARE Address: [place] [phone] Advance Directives For more information, please contact: [phone] * Full Code (Latest Code Status on File) Date Activated Date Inactivated Comments 10/01/2023 3:16 PM 10/02/2023 5:36 PM * Full Code Date Activated Date Inactivated Comments 05/24/2023 2:07 PM 05/25/2023 5:40 PM * Full Code Date Activated Date Inactivated Comments 11/26/2022 5:32 PM 11/27/2022 4:10 PM Care Teams Pillar Man Relationship Specialty Start Date End Date Luke Duarte MD [address] [place] [address] PCP - General Internal Medicine 11/17/19
--- OUTSIDE RECORDS SUMMARY | 2024-12-07 15:03 | XMS_ITS | Encounter Summary ---
Author Organization [facility] Address Formerly [facility] [place] [address] Care Team Providers Care Culinary Specialist Name Role Phone Susan Carmen MD Unavailable [phone] Fly Crum MD Unavailable Luke Duarte MD Primary Care Provider [phone] Nando Adler MD Unavailable [phone] Encounter Details Date Type Department Care Team (Late st Contact Info) Description 06/03/2020 Abstract [facility] at [address] [address] Gayatri Polanco MA Social History [...] file Not on file Not on file COVID-19 Exposure Response Date Recorded In the last month, have you been in contact with someone who was confirmed or suspected to have Coronavirus / COVID-19? No / Unsure 05/15/2020 1:23 PM CDT documented as of this encounter Functional Status * RETIRED Are you deaf or do you have serious difficulty hearing Answer Date of Assessment Author Status Yes 02/29/2020 1:02 PM CDT Activ e * RETIRED Are you blind or do you have serious difficulty seeing, even when wearing glasses? Answer Date of Assessment Author Status No 02/29/2020 1:02 PM CDT Activ e * Do you have serious difficulty walking or climbing stairs? Answer Date of Assessment Author Status No 02/29/2020 1:02 PM CDT Danica Barnett RN Active * Do you have difficulty dressing or bathing? Answer Date of Assessment Author Status No 02/29/2020 1:02 PM CDT Danica Barnett RN Active * Because of a physical, mental, or emotional condition, do you have difficulty doing errands alone such as visiting a doctor's office or shopping? Answer Date of Assessment Author Status No 02/29/2020 1:02 PM WENDYT Danica Barnett RN Active documented as of this encounter Mental Status * Because of a physical, mental, or emotional condition, do you have serious difficulty concentrating, remembering, or making decisions? Answer Entry Date Author Status No 02/29/2020 1:02 PM CDT Danica Barnett RN Active documented in this encounter Plan of Treatment Upcoming Encounters Date Type Department Care Team (Late st Contact Info) Description 05/07/2025 1:00 PM CDT Office Visit [facility], [facility] [address] [place], [place] [id number] Susan Carmen MD [facility]. [facility] [address] [place], [place] [id number] documented as of this encounter Procedures Procedure Name Priority Date/Time Associated Diagnosis Comments PROTIME (OUTSIDE LAB) Routine 02/13/2022 PROTIME (OUTSIDE LAB) Routine 12/25/2021 PROTIME (OUTSIDE LAB) Routine 11/10/2021 PROTIME (OUTSIDE LAB) Routine 08/22/2021 CBC (OUTSIDE LAB) Routine 08/22/2021 COMPREHENSIVE METABOLIC PANEL Routine 08/22/2021 LIPID PANEL Routine 08/22/2021 THYROID STIM HORMONE TSH Routine 08/22/2021 PROTIME (OUTSIDE LAB) Routine 07/23/2021 PROTIME (OUTSIDE LAB) Routine 06/02/2021 PROTIME (OUTSIDE LAB) Routine 02/13/2021 PROTIME (OUTSIDE LAB) Routine 02/06/2021 PROTIME (OUTSIDE LAB) Routine 01/30/2021 PROTIME (OUTSIDE LAB) Routine 01/24/2021 PROTIME (OUTSIDE LAB) Routine 01/09/2021 PROTIME (OUTSIDE LAB) Routine 2021 PROTIME (OUTSIDE LAB) Routine 12/26/2020 PROTIME (OUTSIDE LAB) Routine 12/04/2020 PROTIME (OUTSIDE LAB) Routine 10/25/2020 COMPREHENSIVE METABOLIC PANEL Routine 05/31/2020 LIPID PANEL Routine 05/31/2020 THYROID STIM HORMONE TSH Routine 05/31/2020 documented in this encounter Results * PROTIME (OUTSIDE LAB) (02/13/2022) PROTIME 28.1 INR 2.7 02/13/2022 us Doc [facility] Abstract LAB-OUTSIDE/ABSTRACTED Final Result * PROTIME (OUTSIDE LAB) (12/25/2021) PROTIME 18.2 INR 1.7 12/25/2021 us Doc [facility] Abstract LAB-OUTSIDE/ABSTRACTED Edite d Result - Final * PROTIME (OUTSIDE LAB) (11/10/2021) PROTIME 21.7 INR 2.1 11/10/2021 us Doc [facility] Abstract LAB-OUTSIDE/ABSTRACTED Final Result * THYROID STIM HORMONE, TSH (08/22/2021) Pathologist [facility] TSH 1.680 08/22/2021 us Doc [facility] Abstract LABORATORY Final Result * LIPID PANEL (08/22/2021) Pathologist [facility] CHOLESTEROL 122 HDL 47 TRIGLYCERIDES 61 LDL (CALCULATED) 62 08/22/2021 us Doc [facility] Abstract LABORATORY Final Result * COMPREHENSIVE METABOLIC PANEL (08/22/2021) Pathologist [facility] SODIUM S/P/B 141 POTASSIUM S/P/B 4.3 CO2 23 CHLORIDE S/P/B 105 GLUCOSE 81 mg/dL CALCIUM S/P/B 8.8 BUN 19 CREATININE S/P/B 1.02 0.7 - 1.3 EGFR AFR. AMER. 80 <=90 EGFR NON-AFR. AMER. 70 <=90 ALKALINE PHOSPHATASE S/P/B 82 ALT 27 AST 25 BILIRUBIN TOTAL S/P/B 0.4 ALBUMIN S/P/B 3.8 3.5 - 5.0 TOTAL PROTEIN S/P/B 6.2 GLOBULIN 2.4 08/22/2021 us Doc [facility] LABORATORY Final Result * CBC (OUTSIDE LAB) (08/22/2021) WBC 4.6 HGB 14.4 HCT 42.5 PLT 172 08/22/2021 us Doc [facility] Abstract LAB-OUTSIDE/ABSTRACTED Final Result * PROTIME (OUTSIDE LAB) (08/22/2021) PROTIME 37.1 INR 3.6 08/22/2021 us Doc [facility] Abstract LAB-OUTSIDE/ABSTRACTED Final Result * PROTIME (OUTSIDE LAB) (07/23/2021) PROTIME 20.2 INR 1.9 07/23/2021 us Doc [facility] Abstract LAB-OUTSIDE/ABSTRACTED Final Result * PROTIME (OUTSIDE LAB) (06/02/2021) PROTIME 15.9 INR 1.5 06/02/2021 us Doc [facility] Abstract LAB-OUTSIDE/ABSTRACTED Final Result * PROTIME (OUTSIDE LAB) (02/13/2021) PROTIME 22.3 INR 2.2 02/13/2021 us Doc [facility] Abstract LAB-OUTSIDE/ABSTRACTED Final Result * PROTIME (OUTSIDE LAB) (02/06/2021) PROTIME 24.1 INR 2.4 02/06/2021 us Doc [facility] Abstract LAB-OUTSIDE/ABSTRACTED Final Result * PROTIME (OUTSIDE LAB) (01/30/2021) PROTIME 21.7 INR 2.1 01/30/2021 us Doc [facility] Abstract LAB-OUTSIDE/ABSTRACTED Final Result * PROTIME (OUTSIDE LAB) (01/24/2021) PROTIME 21.7 INR 2.1 01/24/2021 us Doc [facility] Abstract LAB-OUTSIDE/ABSTRACTED Final Result * PROTIME (OUTSIDE LAB) (01/09/2021) PROTIME 19.8 INR 1.9 01/09/2021 us Doc [facility] Abstract LAB-OUTSIDE/ABSTRACTED Final Result * PROTIME (OUTSIDE LAB) (2021) PROTIME 17.3 INR 1.7 2021 us Doc [facility] Abstract LAB-OUTSIDE/ABSTRACTED Final Result * PROTIME (OUTSIDE LAB) (12/26/2020) PROTIME 20.7 INR 2.0 12/26/2020 us Doc [facility] Abstract LAB-OUTSIDE/ABSTRACTED Final Result * PROTIME (OUTSIDE LAB) (12/04/2020) PROTIME 14.7 INR 1.4 12/04/2020 us Doc [facility] Abstract LAB-OUTSIDE/ABSTRACTED Final Result * PROTIME (OUTSIDE LAB) (10/25/2020) PROTIME 16.4 INR 1.6 10/25/2020 us Doc [facility] Abstract LAB-OUTSIDE/ABSTRACTED Final Result * THYROID STIM HORMONE, TSH (05/31/2020) Pathologist [facility] TSH 4.100 05/31/2020 us Doc [facility] Abstract LABORATORY Final Result * LIPID PANEL (05/31/2020) [facility] CHOLESTEROL 143 HDL 57 TRIGLYCERIDES 79 LDL (CALCULATED) 70 05/31/2020 us Doc [facility] Abstract LABORATORY Final Result * COMPREHENSIVE METABOLIC PANEL (05/31/2020) [facility] SODIUM S/P/B 142 POTASSIUM S/P/B 4.5 CO2 27 CHLORIDE S/P/B 104 GLUCOSE 80 mg/dL CALCIUM S/P/B 9.0 BUN 16 CREATININE S/P/B 1.02 0.7 - 1.3 EGFR AFR. AMER. 81 <=90 EGFR NON-AFR. AMER. 70 <=90 ALKALINE PHOSPHATASE S/P/B 97 ALT 62 AST 46 BILIRUBIN TOTAL S/P/B 0.3 ALBUMIN S/P/B 3.7 3.5 - 5.0 TOTAL PROTEIN S/P/B 6.1 GLOBULIN 2.4 05/31/2020 us Doc [facility] Abstract LABORATORY Final Result documented in this encounter Visit Diagnoses Not on filedocumented in this encounter Care Teams Culinary Specialist Relationship Specialty Start Date End Date Luke Duarte MD [address] [place] [address] PCP - General INTERNAL MEDICINE 10/18/19 Susan Carmen MD [id number] [place] [address] [place] Transactional Attorney CARDIOVASCULAR DISEASE 04/07/16 Fly Crum MD Three [address] [address] EP Transactional Attorney Electrophysiology 07/10/16 Nando Adler MD [address] [facility] [address] [place] [address] CARDIAC ELECTROPHYSIOLOGY 09/17/22 documented as of this encounter
--- OUTSIDE RECORDS SUMMARY | 2024-12-07 15:03 | XMS_ITS | Continuity of Care Document ---
Author Organization [facility] Address [address] [facility] [address] [place] [address] Phone Care Team Providers Care Civil Transportation Engineer Name Role Phone Markos An Unavailable Unavailable Procedures Procedure Date Eye Exam, New Patient Advance Directives Directive Yes / No Effective Date File Name No Information Encounters Encounter Description Practice Location Reason(s) For Visit Diagnoses Date Provider Providers Copied on Encounter [facility], [address], [place], [place], [id number], [place] tel:[phone] [facility] (formerly [facility])[3] No Information [address] [facility] [address], [place], [address], [place]. tel:[phone] Family History Family Member Type Diagnosis Age At Onset No Information Payers Payer name Insurance type Covered alliance party ID Authoriza tion(s) [employer] [id number] Written Reffe ral Social History Type Description [...]
--- OUTSIDE RECORDS SUMMARY | 2024-12-07 15:03 | XMS_ITS | Referral Summary ---
Author Organization [facility] Address [address] [place] [address] Care Team Providers Care Superintendent Measurement Name Role Phone Luke Duarte MD Primary Care Provider [phone] Encounters Date Type Department Care Team Description 12/07/2024 Telephone [facility] Cardiology [address] [place] [address] [place] [address] [place] [address] Nando Adler MD PhD 11/17/2024 Telephone [facility] Cardiology [address] [place] [address] [place] [address] [place] [phone] Nando Adler MD PhD 11/17/2024 Orders Only [facility] Cardiology [address] [place] [address] [place] [address] [place] [address] Nando Adler MD PhD Atrial fibrillation, unspecified type (HCC) (Primary Dx); High risk medication use 11/17/2024 Orders Only [facility] Cardiology [address] [place] [address] [place] [address] [place] [address] Nando Adler MD PhD Atrial fibrillation, unspecified type (HCC) (Primary Dx); High risk medication use 11/17/2024 Orders Only [facility] Cardiology [address] [place] [address] [place] [address] [place] [address] Jarett Mcnulty MD PhD Atrial fibrillation, unspecified type (HCC) (Primary Dx); High risk medication use 11/17/2024 12:00 PM BEAN SNAPPER Office Visit [facility] Neuro Sleep [address] [facility] [facility] [facility] [address]th [address] [place] [phone] Alfie Ho PA Complex sleep apnea syndrome (Primary Dx); Psychophysiological insomnia 11/09/2024 Orders Only [facility], Provider 11/03/2024 Orders Only [facility], Provider 10/31/2024 4:30 PM BEAN SNAPPER Office Visit [facility] [address] [facility] [address] [facility] 6th [place] [address] [place] [phone] Elena Carter MD Cognitive decline (Primary Dx) from Last 3 Months Allergies No known active allergies Medications simvastatin [...] 1 tablet (125 mcg total) by mouth waistband setter lockstitch before breakfast 10/25/19 21 Active liothyronine (CYTOMEL) [...] times a day 60 capsule 2 08/23/20 24 025 Discontinued Active Problems Problem Noted Date [...] 10/01/2023 Assessment & Plan (10/01/2023 5:33 PM BEAN SNAPPER): -Continue home remeron, buspar, atarax Atrial flutter (CMS/HCC) 08/20/2023 Assessment & Plan (10/28/2023 11:38 AM BEAN SNAPPER): Persistent atrial flutter treated by [facility] 2020 [...] recurrence Assessment & Plan (10/02/2023 10:54 AM BEAN SNAPPER): Patient presents s/p ablation for medically refractory flutter s/p prior ablations and DCCV - Bedrest per EP -Telemetry overnight - Continue/resume home warfarin: 10mg , 12.5mg rest - Continue home dofetilide, metoprolol - PPI x30 days Cerebrovascular accident (CVA), unspecified mech anism 05/24/2023 Hypothyroid 11/26/2022 Assessment & Plan (10/01/2023 5:34 PM BEAN SNAPPER): -Continue home synthroid, cytomel Assessment & Plan (11/26/2022 4:20 PM BEAN SNAPPER): -cont home synthroid, cytomel Persistent atrial fibrillation 02/14/2021 Overview (02/14/2021): Added automatically from request for surgery [id number] Assessment & Plan (11/27/2022 3:31 PM BEAN SNAPPER): S/p A flutter ablation via pulmonary vein [...] 05/30/2020 Assessment & Plan (10/01/2023 5:33 PM BEAN SNAPPER): -Continue home lunesta Assessment & Plan (11/26/2022 4:19 PM BEAN SNAPPER): -home mirtazapine, Lunesta Complex sleep apnea syndrome 11/17/2019 Assessment & Plan (10/01/2023 5:32 PM BEAN SNAPPER): -Nocturnal nppv, home unit Assessment & Plan (11/26/2022 4:14 PM BEAN SNAPPER): Brought home CPAP 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 Atrial fibrillation (CMS/HCC) 05/19/2018 Assessment & Plan (04/14/2021 1:42 PM CDT): On coumadin High risk medication use 05/19/2018 Assessment & Plan (10/28/2023 11:35 AM BEAN SNAPPER): Renal function stable, eGFR 64 QT interval stable, QTc 459 ms Continue dofetilide 500 mcg BID Asthma Assessment & Plan (10/01/2023 5:32 PM BEAN SNAPPER): F/b OSH pulm -Breo ellipta for home inhaler Resolved Problems Problem Noted Date Diagnosed Date Resolved Date Atrial flutter (CMS/HCC) 11/26/202206/2023 Social History Tobacco Use Types Packs/Day Years [...] on file Legal Sex Male 1:59 AM BEAN SNAPPER Gender Identity Not on file Sexual Orientation Not on file Last Filed Vital Signs Vital Sign Reading Time Taken Comments Blood Pressure 148/73 11/17/2024 11:44 AM BEAN SNAPPER Pulse 80 11/17/2024 11:44 AM BEAN SNAPPER Temperature 36.9 C (98.5 F) 11/17/2024 11:44 AM BEAN SNAPPER Respiratory Rate 18 12/14/2023 1:53 PM BEAN SNAPPER Oxygen Saturation 99% 11/17/2024 11:44 AM BEAN SNAPPER Inhaled Oxygen Concentration - - Weight 92.1 kg (203 lb) 11/17/2024 11:44 AM BEAN SNAPPER Height 177.8 cm (5' 10 ) 11/17/2024 11:44 AM BEAN SNAPPER Body Mass Index 29.13 11/17/2024 11:44 AM BEAN SNAPPER Plan of Treatment Not on file Medical Devices Implanted Type Area Dedicated Intermodal Truck Driver Device Identifier Shelf Expiration Date Model / Serial / Lot [employer] Vascade Mvp 6-12fr Venous Closure [id number] - [id number] - [id number] Implanted:Qty: 1 on 10/01/2023 by Michael Britt MD at [facility] Collagen Right: Femoral Vein [employer] 06/03/2025 800-612C- 10U / [id number] 24A / [id number] [id number] [employer] Vascade Mvp 6-12fr Venous Closure [id number] - [id number] - [id number] Implanted:Qty: 1 on 10/01/2023 by Michael Britt MD at [facility] Collagen Right: Femoral Vein [employer] 06/03/2025 800-612C- 10U / [id number] 24A / [id number] [id number] [employer] Vascade Mvp 6-12fr Venous Closure [id number] - [id number] - [id number] Implanted:Qty: 1 on 10/01/2023 by Michael Britt MD at [facility] Collagen Left: Femoral Vein [employer] 06/03/2025 800-612C- 10U / [id number] 24A / [id number] 24A [employer] Device Closure Vascade Od5 Fr Femoral Artery [id number] - [id number] - [id number] Implanted:Qty: 1 on 10/01/2023 by Michael Britt MD at [facility] Collagen Left: Femoral Vein [employer] 06/17/2025 [id number] -[id number] / [id number] / [id number] Screw Screw Knee Description:Left knee replac ement Procedures Procedure Name Priority Date/Time Associated Diagnosis Comments BASIC METABOLIC PANEL Routine 11/17/2024 1:53 PM BEAN SNAPPER Atrial fibrillation, unspecified type (HCC) High risk medication use SCAN - NEUROLOGY 11/09/2024 4:58 PM BEAN SNAPPER SCAN - RADIOLOGY/IMAGING 11/03/2024 4:31 PM BEAN SNAPPER from Last 3 Months Results * Basic metabolic panel (11/17/2024 1:53 PM BEAN SNAPPER) [facility] Glucose 84 70 - 99 mg/dL [facility] [...] [facility] - 01 Blood 11/17/2024 1:53 PM BEAN SNAPPER 11/17/2024 Narrative [facility] - 11/20/2024 7:36 AM BEAN SNAPPER Performed at: - Lab[address] [id number] Motion Study Technician: Tank Acuna PhD, Phone: [phone] us Nando Adler MD PhD LAB BLOOD ORDERABLES E dited Result - [facility] - 01 * SCAN - NEUROLOGY (11/09/2024 4:58 PM BEAN SNAPPER) Anatomical Region Laterality Modality Other Provider Scanning Final Result * SCAN - RADIOLOGY/IMAGING (11/03/2024 4:31 PM BEAN SNAPPER) Anatomical Region Laterality Modality Other us Provider Scanning Final Result from Last 3 Months Insurance [facility] MDCR HMO REF MEDICARE SOLUTIONS Advance Directives For more information, please contact: [phone] * Full Code (Latest Code Status on File) Date Activated Date Inactivated Comments 10/01/2023 3:16 PM 10/02/2023 5:36 PM * Full Code Date Activated Date Inactivated Comments 05/24/2023 2:07 PM 05/25/2023 5:40 PM * Full Code Date Activated Date Inactivated Comments 11/26/2022 5:32 PM 11/27/2022 4:10 PM Care Teams Superintendent Measurement Relationship Specialty Start Date End Date Luke Duarte MD [address] [place] [address] PCP - General Internal Medicine 11/17/19
--- OUTSIDE RECORDS SUMMARY | 2024-12-07 15:03 | XMS_ITS | Encounter Summary ---
Author Organization [facility] Address [facility] [place] [address] Care Team Providers Care Pewter Fabricator Name Role Phone Susan Carmen MD Unavailable [phone] Fly Crum MD Unavailable Luke Duarte MD Primary Care Provider [phone] [facility] Unavailable [phone] Encounter Details Date Type Department Care Team (Late Contact Info) Description 11/17/2019 Abstract [facility] at [address] [address] Gayatri Polanco MA Social History [...] Encounters Date Type Department Care Team (Late Contact Info) Description 05/07/2025 1:00 PM CDT Office Visit [facility] [address] Susan Carmen [facility] [address] [place] [address] documented as of this encounter Procedures Procedure Name Priority Date/Time Associated Diagnosis Comments PROTIME (OUTSIDE LAB) Routine 12/20/2019 PROTIME (OUTSIDE LAB) Routine 11/16/2019 documented in this encounter Results * PROTIME (OUTSIDE LAB) (12/20/2019) PROTIME 15.2 INR 1.5 12/20/2019 us Doc [facility] LAB-OUTSIDE/ABSTRACTED Final Result * PROTIME (OUTSIDE LAB) (11/16/2019) PROTIME 69.2 INR 6.7 11/16/2019 us Doc [facility] Abstract LAB-OUTSIDE/ABSTRACTED Edite d Result - Final documented in this encounter Visit Diagnoses Not on filedocumented in this encounter Additional Health Concerns Infection Onset Date Last Indicated Resolved Time COVID-19 Rule Out 02/26/2020 02/26/2020 02/28/2020 8:44 AM CDT documented as of this encounter Care Teams Pewter Fabricator Relationship Specialty Start Date End Date Luke Duarte MD [address] [facility] [address] [place] [address] PCP - General INTERNAL MEDICINE 10/18/19 Susan Carmen MD [address] [facility] [address] [place] [address] [place] Video Intern CARDIOVASCULAR DISEASE 04/07/16 Fly Crum MD Three [facility]. [facility] [address] [place] [address] EP Video Intern Electrophysiology 07/10/16 Nando Adler MD [address] [place] [address] CARDIAC ELECTROPHYSIOLOGY 09/17/22 documented as of this encounter
--- OUTSIDE RECORDS SUMMARY | 2024-12-07 15:03 | XMS_ITS | Encounter Summary ---
Author Organization [facility] Address [address] [place] [address] Care Team Providers Care Service Center Technician Name Role Phone Susan Carmen MD Unavailable [phone] Luke Duarte MD Primary Care Provider [phone] Fly Crum MD Unavailable Kashmir Lopez MD Primary Care Provider [phone] Luke Duarte MD Primary Care Provider [phone] Nando Adler MD Unavailable [phone] Encounter Details Date Type Department Care Team (Late st Contact Info) Description 04/07/2016 Abstract [facility] AT [address] [address] Gayatri Polanco MA Social History Tobacco Use Types Packs/Day Years Used Date Smoking Tobacco: Former Sex and Gender Information Value Date Recorded Sex Assigned at Not on file Legal Sex Male 11:46 PM CDT Gender Identity Not on file Sexual Orientation Not on file documented as of this encounter Progress Notes * DIDIER Israel - 04/22/2016 11:24 AM CDT RAMÓN pt, send letter continue current meds documented in this encounter Plan of Treatment Upcoming Encounters Date Type Department Care Team (Late st Contact Info) Description 05/07/2025 1:00 PM CDT Office Visit [facility] [address] [facility] [address], [address] [place] [address] Susan Carmen MD [facility] [address] [place] [address] documented as of this encounter Procedures Procedure Name Priority Date/Time Associated Diagnosis Comments PROTIME (OUTSIDE LAB) Routine 09/30/2017 PROTIME (OUTSIDE LAB) Routine 08/19/2017 PROTIME (OUTSIDE LAB) Routine 06/30/2017 PROTIME (OUTSIDE LAB) Routine 05/20/2017 PROTIME (OUTSIDE LAB) Routine 05/05/2017 PROTIME (OUTSIDE LAB) Routine 02/24/2017 PROTIME (OUTSIDE LAB) Routine 01/20/2017 PROTIME (OUTSIDE LAB) Routine 01/13/2017 PROTIME (OUTSIDE LAB) Routine 01/07/2017 PROTIME (OUTSIDE LAB) Routine 12/30/2016 PROTIME (OUTSIDE LAB) Routine 12/25/2016 PROTIME (OUTSIDE LAB) Routine 12/14/2016 PROTIME (OUTSIDE LAB) Routine 11/27/2016 PROTIME (OUTSIDE LAB) Routine 11/18/2016 PROTIME (OUTSIDE LAB) Routine 11/06/2016 PROTIME (OUTSIDE LAB) Routine 11/04/2016 CBC (OUTSIDE LAB) Routine 11/04/2016 PROTIME (OUTSIDE LAB) Routine 08/12/2016 PROTIME (OUTSIDE LAB) Routine 06/29/2016 PROTIME (OUTSIDE LAB) Routine 04/21/2016 CBC (OUTSIDE LAB) Routine 04/21/2016 BASIC METABOLIC PANEL Routine 04/21/2016 PROTIME (OUTSIDE LAB) Routine 04/07/2016 documented in this encounter Results * PROTIME (OUTSIDE LAB) (09/30/2017) PROTIME 31.5 INR 3.1 09/30/2017 us Doc [facility] Abstract LAB-OUTSIDE/ABSTRACTED Final Result * PROTIME (OUTSIDE LAB) (08/19/2017) PROTIME 23.4 INR 2.3 08/19/2017 us Doc [facility] Abstract LAB-OUTSIDE/ABSTRACTED Final Result * PROTIME (OUTSIDE LAB) (06/30/2017) PROTIME 14.9 INR 1.4 06/30/2017 us Doc [facility] Abstract LAB-OUTSIDE/ABSTRACTED Final Result * PROTIME (OUTSIDE LAB) (05/20/2017) PROTIME 18.3 INR 1.7 05/20/2017 us Doc [facility] Abstract LAB-OUTSIDE/ABSTRACTED Edite d Result - Final * PROTIME (OUTSIDE LAB) (05/05/2017) PROTIME 17.8 INR 1.6 05/05/2017 us Doc [facility] Abstract LAB-OUTSIDE/ABSTRACTED Final Result * PROTIME (OUTSIDE LAB) (02/24/2017) PROTIME 29.4 INR 2.9 02/24/2017 us Doc [facility] Abstract LAB-OUTSIDE/ABSTRACTED Final Result * PROTIME (OUTSIDE LAB) (01/20/2017) PROTIME 21.6 INR 2.1 01/20/2017 us Doc [facility] Abstract LAB-OUTSIDE/ABSTRACTED Final Result * PROTIME (OUTSIDE LAB) (01/13/2017) PROTIME 21.3 INR 2.0 01/13/2017 us Doc [facility] Abstract LAB-OUTSIDE/ABSTRACTED Final Result * PROTIME (OUTSIDE LAB) (01/07/2017) PROTIME 27.3 INR 2.6 01/07/2017 us Doc [facility] Abstract LAB-OUTSIDE/ABSTRACTED Final Result * PROTIME (OUTSIDE LAB) (12/30/2016) PROTIME 22.8 INR 2.2 12/30/2016 us Doc [facility] Abstract LAB-OUTSIDE/ABSTRACTED Final Result * PROTIME (OUTSIDE LAB) (12/25/2016) PROTIME 18.5 INR 1.8 12/25/2016 us Doc [facility] Abstract LAB-OUTSIDE/ABSTRACTED Final Result * PROTIME (OUTSIDE LAB) (12/14/2016) PROTIME 21.9 INR 2.1 12/14/2016 us Doc [facility] Abstract LAB-OUTSIDE/ABSTRACTED Final Result * PROTIME (OUTSIDE LAB) (11/27/2016) PROTIME 15.3 INR 1.5 11/27/2016 us Doc [facility] Abstract LAB-OUTSIDE/ABSTRACTED Final Result * PROTIME (OUTSIDE LAB) (11/18/2016) PROTIME 11.8 INR 1.1 11/18/2016 us Doc [facility] Abstract LAB-OUTSIDE/ABSTRACTED Final Result * PROTIME (OUTSIDE LAB) (11/06/2016) PROTIME 33.5 INR 3.2 11/06/2016 us Doc [facility] Abstract LAB-OUTSIDE/ABSTRACTED Final Result * PROTIME (OUTSIDE LAB) (11/04/2016) PROTIME 113.8 INR 10.5 11/04/2016 us Doc [facility] Abstract LAB-OUTSIDE/ABSTRACTED Final Result * CBC (OUTSIDE LAB) (11/04/2016) WBC 7.2 HGB 11.8 HCT 35.3 PLT 201 11/04/2016 us Doc [facility] Abstract LAB-OUTSIDE/ABSTRACTED Final Result * PROTIME (OUTSIDE LAB) (08/12/2016) PROTIME 30.5 INR 2.9 08/12/2016 Result [facility] Doc [facility] Abstract LAB-OUTSIDE/ABSTRACTED Final Result * PROTIME (OUTSIDE LAB) (06/29/2016) PROTIME 11.4 INR 1.1 06/29/2016 Result [facility] Susan Carmen MD LAB-OUTSIDE/ABSTRACTED Final Re sult * BASIC METABOLIC PANEL (04/21/2016) Pathologist [facility] BUN 23 CREATININE S/P/B 1.07 EGFR AFR. AMER. 79 EGFR NON-AFR. AMER. 68 04/21/2016 Result [facility] Susan Carmen MD LABORATORY Final Result * CBC (OUTSIDE LAB) (04/21/2016) Pathologist [facility] HCT 39.4 04/21/2016 Result [facility] Susan Carmen MD LAB-OUTSIDE/ABSTRACTED Final Re sult * PROTIME (OUTSIDE LAB) (04/21/2016) Pathologist [facility] PROTIME 14.2 INR 1.4 04/21/2016 Result [facility] Susan Carmen MD LAB-OUTSIDE/ABSTRACTED Final Re sult * PROTIME (OUTSIDE LAB) (04/07/2016) PROTIME 26.1 INR 2.5 04/07/2016 Result [facility] Susan Carmen MD LAB-OUTSIDE/ABSTRACTED Final Re sult documented in this encounter Visit Diagnoses Not on filedocumented in this encounter Additional Health Concerns Infection Onset Date Last Indicated Resolved Time COVID-19 Rule Out 02/26/2020 02/26/2020 02/28/2020 8:44 AM CDT documented as of this encounter Care Teams Service Center Technician Relationship Specialty Start Date End Date Luke Duarte MD [address] [place] [address] PCP - General INTERNAL MEDICINE 03/18/16 10/17/18 Kashmir Lopez MD [address] [place] [address] PCP - General INTERNAL MEDICINE 10/18/18 10/17/19 Luke Duarte MD [address] [place] [address] PCP - General INTERNAL MEDICINE 10/18/19 Susan Carmen MD [address] [place] [address] [place] [employer] CARDIOVASCULAR DISEASE 04/07/16 Fly Crum MD [address] [place] [address] EP [employer] Electrophysiology 07/10/16 Nando Adler MD [address] [place] [address] CARDIAC ELECTROPHYSIOLOGY 09/17/22 documented as of this encounter
--- OUTSIDE RECORDS SUMMARY | 2024-12-07 15:03 | XMS_ITS | Clinical Summary ---
Author Organization [facility] Address [address] [place] [address] Care Team Providers Care Tape Librarian Name Role Phone Susan Carmen MD Unavailable [phone] Fly Crum MD Unavailable Luke Duarte MD Primary Care Provider [phone] Nando Adler MD Unavailable [phone] Allergies No known active allergies Medications Saw Eureka 450 MG Cap Take 1 capsule by mouth 2 (two) times daily. 03/23/20 16 Active CPAP MACHINE nightly at bedtime. 02/25/20 18 Active busPIRone 10 MG tablet Take 1 tablet (10 mg total) by mouth daily. 08/08/20 18 Active eszopiclone 3 MG Tab Take 1 mg by mouth nightly at bedtime. 08/25/20 18 Active vitamin B-12 (CYANOCOBALAMI N) 1000 mcg tablet Take 1,000 mcg by mouth daily. Active GLUCOSAMINE-CH ONDROITIN OR Take by mouth daily. Active liothyronine 5 MCG Tab Take 5 mcg by mouth daily. 10/07/20 20 Active dofetilide (TIKOSYN) 500 MCG Cap capsule Take 500 mcg by mouth 2 (two) times daily. 11/03/19 23 Active mirtazapine (REMERON) 30 MG tablet Take 30 mg by mouth nightly. 11/25/19 23 Active cyclobenzaprin e (FLEXERIL) 10 MG tablet Take 1 tablet (10 mg total) by mouth 3 (three) times daily as needed for Muscle Spasms. 05/04/20 23 Active lisinopril (PRINIVIL) 10 MG tablet Take 1 tablet (10 mg total) by mouth daily. 04/29/20 23 Active tamsulosin (FLOMAX) 0.4 MG Cap Take 2 capsules (0.8 mg total) by mouth daily. 06/01/20 23 Active atorvastatin (LIPITOR) 20 MG tablet Take 1 tablet (20 mg total) by mouth nightly at bedtime. 10/28/19 24 Active CHOLECALCIFERO L 1.25 mg capsule Take 1 capsule (1.25 mg total) by mouth once a week. 10/28/19 24 Active albuterol sulfate HFA 108 (90 Base) MCG/ACT inhaler Inhale 2 puffs into the lungs every 4 (four) hours as needed. 12/14/19 24 025 Active simvastatin (ZOCOR) 20 MG tablet TAKE 1 TABLET BY MOUTH NIGHTLY AT BEDTIME 90 tablet 1 10/16/20 24 Active metoprolol succinate ER (TOPROL-XL) 50 MG 24 hr tablet TAKE 1 TABLET BY MOUTH ONCE DAILY IN THE MORNING 90 tablet 11/09/19 25 Active warfarin (COUMADIN) 5 MG tablet Take 1 1/2 tablets(7.5mg ) on Mondays and Wednesdays and take 2 tablets (10mg) all the other days of the week 156 tablet 1 11/29/19 25 Active metoprolol succinate ER (TOPROL-XL) 50 MG 24 hr tablet take 1 tablet by mouth once daily in the morning 90 tablet 08/07/20 24 025 Discontinued warfarin (COUMADIN) 5 MG tablet TAKE 2 & 1/2 TABLETS ONCE DAILY ON WEDNESDAY, WEDNESDAY AND WEDNESDAY EVENINGS, AND THEN TAKE 2 TABLETS BY MOUTH ON ALL THE OTHER EVENINGS. Please keep scheduled dates for protime/INR's . 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 06/25/2016 TANNER (dyspnea on exertion) 06/25/2016 PAF (paroxysmal atrial fibrillation) ([facility]) 03/30/2016 Hyperlipidemia, mixed Resolved Problems Problem Noted Date Diagnosed Date Resolved Date High risk medication use 05/19/2018 Amnesia 12/24/2016 Encounters Date Type Department Care Team Description 11/20/2024 Anti-Coag Telephone Call [facility], [address] [address] Sandhya Garcia, RN Anticoagulation (protime) 11/07/2024 Orders Only [facility] [address] [place], [place] [id number] Sandhya Garcia, RN 09/18/2024 Telephone [facility], [place] [address] [place], [place] [id number] Susan Carmen MD Refill Request (WARFARIN) from Last 3 Months Immunizations Name Administration Dates Next Due Flucelvax 6 Months+ (Prefilled Syringe) 09/06/20 16 Fluzone High Dose - >Age 65 (Prefilled Syringe) 08/23/2020 Pneumococcal (Prevnar 13) 07/03/2019 Family History Medical History Relation Comments Alzheimer's disease Mother Family history is positive for premature coronar y heart disease. 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 Not on file Not on file Not on file Not on file Not on file Not on file Not on file Last Filed Vital Signs Vital Sign Reading Time Taken Comments Blood Pressure 122/74 08/07/2024 11:08 AM CDT Pulse 80 08/07/2024 11:08 AM CDT Temperature 37.1 C (98.7 F) 03/01/2020 7:53 AM CDT Respiratory Rate 20 03/01/2020 7:53 AM CDT Oxygen Saturation 98% 08/07/2024 11:08 AM CDT Inhaled Oxygen Concentration - - Weight 91.2 kg (201 lb) 08/07/2024 11:08 AM CDT Height 177.8 cm (5' 10 ) 08/07/2024 11:08 AM CDT Body Mass Index 28.84 08/07/2024 11:08 AM CDT Plan of Treatment Upcoming Encounters Date Type Department Care Team (Late st Contact Info) Description 05/07/2025 1:00 PM CDT Office Visit [facility], [address] [place] [address] Susan Carmen MD Three [facility]. [address] [place] [address] Health Maintenance Due Date Last Done Comments DTaP, Tdap and Td Vaccines (1 - Tdap) 1961 Zoster Vaccines (1 of 2) 01/03/1992 Annual Medicare Wellness Visit 2007 RSV Immunization or 60+ Years (1 - 1-dose 75+ series) 2017 Pneumococcal Vaccine: 65+ Years (2 of 2 - PPSV23 or PCV20) 08/28/2019 07/03/2019 COVID-19 Vaccine (1 - season) 2024 Influenza Adult (#1) 2024 08/23/2020, 09/06/20 16 ASCVD LDL 10/21/2024 10/21/2023, 02/2021, 05/31/2020, Additional history exists Meningococcal B Vaccine Aged Out No l onger eligible based on patient's age to complete this topic Meningococcal Vaccine Aged Out No chris prince eligible based on patient's age to complete this topic RSV Immunizations Under 20 Months Aged Out No longer eligible based on patient's age to complete this topic Procedures Procedure Name Priority Date/Time Associated Diagnosis Comments PROTIME (OUTSIDE LAB) Routine 11/17/2024 LIPID PANEL Routine 10/21/2023 from Last 3 Months or Most Recently Relevant to Health Maintenance Results * PROTIME (OUTSIDE LAB) (11/17/2024) PROTIME 22.5 INR 2.2 11/17/2024 us Default History Genericprovider LAB-OUTSIDE/ABST RACTED Final Result * LIPID PANEL (10/21/2023) CHOLESTEROL 173 HDL 40 TRIGLYCERIDES 199 LDL (CALCULATED) 99 10/21/2023 us Default History Genericprovider LABORATORY Final Result from Last 3 Months or Most Recently Relevant to Health Maintenance Insurance [facility] Advance Directives Documents on File Type Date Recorded Patient Perioperative Tech Expl anation Advance Directives and Living Will 03/01/2020 1:47 PM 07/13/2005 POA FOR HEALTH CARE Power of Soil And Plant Scientist 02/29/2020 7:57 AM * Full Code (Latest Code Status on File) Date Activated Date Inactivated Comments 02/29/2020 12:15 PM 03/01/2020 1:24 PM Care Teams Tape Librarian Relationship Specialty Start Date End Date Luke Duarte MD [address] - [facility] [address] [place] [address] PCP - General INTERNAL MEDICINE 10/18/19 Susan Carmen MD [address] [address] [place] [employer] Man CARDIOVASCULAR DISEASE 04/07/16 Fly Crum MD [facility] [address] [place] [address] EP [place] Electrophysiology 07/10/16 Nando Adler MD [address] [facility] [address] [place] [address] CARDIAC ELECTROPHYSIOLOGY 09/17/22
--- OUTSIDE RECORDS SUMMARY | 2024-12-07 15:03 | XMS_ITS | Encounter Summary ---
Author Organization [facility] Address [address] [place] [address] Care Team Providers Care Station Manager Name Role Phone Susan Carmen MD Unavailable [phone] Fly Crum MD Unavailable Luke Duarte MD Primary Care Provider [phone] Nando Adler MD Unavailable [phone] Encounter Details Date Type Department Care Team (Late st Contact Info) Description 02/28/2020 Hospital Orders Only [facility] [employer] [place] [address] Fly Crum MD Three [facility]. 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 No / Unsure 02/29/2020 6:00 AM CDT documented as of this encounter Functional Status documented as of this encounter Mental Status * Question Answer Entry Date Author Status Because of a physical, mental, or emotional condition, do you have serious difficulty concentrating, remembering, or making decisions? No 02/29/2020 1:02 PM CDT Danica Barnett R N Active documented in this encounter Plan of Treatment Upcoming Encounters Date Type Department Care Team (Late st Contact Info) Description 05/07/2025 1:00 PM CDT [facility] Visit [facility] [address] [place], [place] [id number] Susan Carmen MD [facility]. [address] [place], [place] [address] documented as of this encounter Visit Diagnoses Not on filedocumented in this encounter Additional Health Concerns Infection Onset Date Last Indicated Resolved Time COVID-19 Rule Out 02/26/2020 02/26/2020 02/28/2020 8:44 AM CDT documented as of this encounter Care Teams Station Manager Relationship Specialty Start Date End Date Luke Duarte MD [address] [facility] [address] [facility] [address] [place] [address] PCP - General INTERNAL MEDICINE 10/18/19 Susan Carmen MD [facility]. [address] [place], [place] [id number] [place] Assisted Sales Representative CARDIOVASCULAR DISEASE 04/07/16 Fly Crum MD [facility]. [address] [place], [place] [id number] EP Assisted Sales Representative Electrophysiology 07/10/16 Nando Adler MD [address] [place] [address] CARDIAC ELECTROPHYSIOLOGY 09/17/22 documented as of this encounter
--- OUTSIDE RECORDS SUMMARY | 2024-12-07 15:03 | XMS_ITS | Encounter Summary ---
Author Organization [facility] Address [address] [place] [address] Care Team Providers Care Car Cleaning Supervisor Name Role Phone Susan Carmen MD Unavailable [phone] Fly Crum MD Unavailable Luke Duarte MD Primary Care Provider [phone] Nando Adler MD Unavailable [phone] Encounter Details Date Type Department Care Team (Late st Contact Info) Description 02/23/2020 Pre-Procedure Call [employer] [address] Fly Crum MD Three [facility]. 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 No / Unsure 02/26/2020 2:42 PM CDT documented as of this encounter Plan of Treatment Upcoming Encounters Date Type Department Care Team (Late st Contact Info) Description 05/07/2025 1:00 PM CDT [facility], [address] [place], [place] [id number] Susan Carmen MD Three [facility]. [address] [place] [address] documented as of this encounter Visit Diagnoses Not on filedocumented in this encounter Additional Health Concerns Infection Onset Date Last Indicated Resolved Time COVID-19 Rule Out 02/26/2020 02/26/2020 02/28/2020 8:44 AM CDT documented as of this encounter Care Teams Car Cleaning Supervisor Relationship Specialty Start Date End Date Luke Duarte MD [address] [place] [id number] PCP - General INTERNAL MEDICINE 10/18/19 Susan Carmen MD [facility]. [facility] [address] [place], [place] [address] [place] Ear Mold Laboratory Technician CARDIOVASCULAR DISEASE 04/07/16 Fly Crum MD [facility]. [address] [place], [place] [address] EP Ear Mold Laboratory Technician Electrophysiology 07/10/16 Nando Adler MD [address] [place] [address] CARDIAC ELECTROPHYSIOLOGY 09/17/22 documented as of this encounter
--- OUTSIDE RECORDS SUMMARY | 2024-12-07 15:03 | XMS_ITS | Encounter Summary ---
Author Organization [facility] Address [address] [place] [address] Phone Care Team Providers Care Supervisor Ticket Sales Name Role Phone Kashmir Lopez MD Primary Care Provider [phone] Luke Duarte MD Primary Care Provider [phone] Encounter Details Date Type Department Care Team (Late st Contact Info) Description 08/31/2019 Telephone [facility] Cardiology [address] [facility] 8th [place] [address] [place] [address] Nando Adler MD PhD [address] [facility] [address] [place], [place] [id number] Social History Tobacco Use Types Packs/Day Years Used Date Smoking Tobacco: Never Smokeless Tobacco: Never Alcohol Use Standard Drinks/Week Comments No 0 (1 standard drink = 0.6 oz pur e alcohol) Sex and Gender Information Value Date Recorded Sex Assigned at Not on file Legal Sex Male 1:59 AM WORD PROCESSOR Gender Identity Not on file Sexual Orientation Not on file documented as of this encounter Plan of Treatment Not on file documented as of this encounter Visit Diagnoses Not on filedocumented in this encounter Care Teams Supervisor Ticket Sales Relationship Specialty Start Date End Date Kashmir Lopez MD [address] [place] [address] PCP - General Internal Medicine 05/25/19 11/16/19 Luke Duarte MD [address] [facility] [address] [place] [address] PCP - General Internal Medicine 11/17/19 documented as of this encounter
--- OUTSIDE RECORDS SUMMARY | 2024-12-07 15:03 | XMS_ITS | Encounter Summary ---
Author Organization [facility] Address [address] [place] [address] Phone Care Team Providers Care Obiee Architect Name Role Phone Luke Duarte MD Primary Care Provider [phone] Encounter Details Date Type Department Care Team (Late st Contact Info) Description 12/07/2024 Telephone [facility] Cardiology [address] [facility] [address]th [address] [place] [phone] Nando Adler MD PhD [address] [facility] [address] [place] [address] Social History Tobacco Use Types Packs/Day Years Used Date Smoking Tobacco: Never Passive Smoke Exposure: Past Smokeless Tobacco: Never Alcohol Use Standard Drinks/Week [...] on file Legal Sex Male 1:59 AM NUCLEAR MEDICINE TECHNICIAN Gender Identity Not on file Sexual Orientation Not on file documented as of this encounter Miscellaneous Notes * Telephone Encounter - Talia Anthony, GABO - 12/07/2024 2:50 PM CST Faxed EKG order to [facility] with confirmation EAR MEDICINE TECHNICIAN * Telephone Encounter - Thalia Lantigua - 12/07/2024 2:48 PM CST VITOR PT CALLING IN REGARDS TO PREVIOUS ENCOUNTER REGARDING NEEDING EKG ORDER SENT TO [facility]. PLEASE FAX TO: [phone] EAR MEDICINE TECHNICIAN * Telephone Encounter - Tracy Dixon - 12/07/2024 2:34 PM CST Vitor Pt is currently at [facility] waiting to have the EKG done. Pt is wanting to know if the EKGorder could be faxed to [facility] since [facility] states that they do not have it. EAR MEDICINE TECHNICIAN documented in this encounter Plan of Treatment Not on file documented as of this encounter Visit Diagnoses Not on filedocumented in this encounter Care Teams Obiee Architect Relationship Specialty Start Date End Date Luke Duarte MD [address] [place] [address] PCP - General Internal Medicine 11/17/19 documented as of this encounter
--- OUTSIDE RECORDS SUMMARY | 2024-12-07 15:03 | XMS_ITS | Encounter Summary ---
Author Organization [facility] Address [facility] [place] [address] Care Team Providers Care Radio Operator Name Role Phone Susan Carmen MD Unavailable [phone] Fly Crum MD Unavailable Luke Duarte MD Primary Care Provider [phone] Nando Adler MD Unavailable [phone] Encounter Details Date Type Department Care Team (Late st Contact Info) Description 03/18/2022 Abstract [facility] [address] Gayatri Polanco MA Social History [...] Exposure Response Date Recorded In the last 10 days, have yo u been in contact with someone who was confirmed or suspected to have Coronavirus/COVID-19? No / Unsure 03/12/2022 1:48 PM CDT documented as of this encounter [...] PM CDT Office Visit [facility], [facility] [address] [place], [place] [id number] Susan Carmen MD [facility]. [facility] [address] [place], [place] [id number] documented as of this encounter Procedures Procedure Name Priority Date/Time Associated Diagnosis Comments PROTIME (OUTSIDE LAB) Routine 11/17/2024 PROTIME (OUTSIDE LAB) Routine 08/21/2024 PROTIME (OUTSIDE LAB) Routine 07/28/2024 PROTIME (OUTSIDE LAB) Routine 06/06/2024 PROTIME (OUTSIDE LAB) Routine 10/21/2023 CBC (OUTSIDE LAB) Routine 10/21/2023 HEMOGLOBIN, GLYCOSYLATED Routine 10/21/2023 COMPREHENSIVE METABOLIC PANEL Routine 10/21/2023 LIPID PANEL Routine 10/21/2023 THYROXINE, FREE (FT4) Routine 10/21/2023 THYROID STIM HORMONE TSH Routine 10/21/2023 VITAMIN D, 25 OH Routine 10/21/2023 PROTIME (OUTSIDE LAB) Routine 01/29/2023 PROTIME (OUTSIDE LAB) Routine 07/14/2022 PROTIME (OUTSIDE LAB) Routine 04/28/2022 PROTIME (OUTSIDE LAB) Routine 03/25/2022 PROTIME (OUTSIDE LAB) Routine 03/17/2022 documented in this encounter Results * PROTIME (OUTSIDE LAB) (11/17/2024) PROTIME 22.5 INR 2.2 11/17/2024 us Default History Genericprovider LAB-OUTSIDE/ABST RACTED Final Result * PROTIME (OUTSIDE LAB) (08/21/2024) PROTIME 26.9 INR 2.6 08/21/2024 us Default History Genericprovider LAB-OUTSIDE/ABST RACTED Final Result * PROTIME (OUTSIDE LAB) (07/28/2024) PROTIME 31.1 INR 3.1 07/28/2024 Default History Genericprovider LAB-OUTSIDE/ABST RACTED Final Result * PROTIME (OUTSIDE LAB) (06/06/2024) PROTIME 27.3 INR 2.7 06/06/2024 Default History Genericprovider LAB-OUTSIDE/ABST RACTED Final Result * VITAMIN D, 25 OH (10/21/2023) Pathologist [facility] VITAMIN D 25 HYDROXY S/P/B 26.7 10/21/2023 Result [facility] History Genericprovider LABORATORY Final Result * THYROXINE, FREE (FT4) (10/21/2023) Pathologist [facility] FREE T4 1.29 Result [facility] Default History Genericprovider LABORATORY Edited Result - Final * HEMOGLOBIN, GLYCOSYLATED (10/21/2023) Pathologist [facility] HGB A1C 5.7 % Result [facility] History Genericprovider LABORATORY Edited Result - Final * THYROID STIM HORMONE, TSH (10/21/2023) TSH 0.282 Result [facility] History Genericprovider LABORATORY Edited Result - Final * CBC (OUTSIDE LAB) (10/21/2023) Pathologist [facility] WBC 4.5 HGB 13.4 HCT 40.0 PLT 187 10/21/2023 Default History Genericprovider LAB-OUTSIDE/ABST RACTED Final Result * COMPREHENSIVE METABOLIC PANEL (10/21/2023) SODIUM S/P/B 138 POTASSIUM S/P/B 4.4 CO2 23 CHLORIDE S/P/B 104 GLUCOSE 91 mg/dL CALCIUM S/P/B 8.9 BUN 17 CREATININE S/P/B 0.96 0.7 - 1.3 EGFR NON-AFR. AMER. 79 <=90 ALKALINE PHOSPHATASE S/P/B 88 ALT 20 AST 20 BILIRUBIN TOTAL S/P/B 0.4 ALBUMIN S/P/B 3.9 3.5 - 5.0 TOTAL PROTEIN S/P/B 6.3 GLOBULIN 2.4 10/21/2023 Default History Genericprovider LABORATORY Final Result * LIPID PANEL (10/21/2023) [facility] CHOLESTEROL 173 HDL 40 TRIGLYCERIDES 199 LDL (CALCULATED) 99 10/21/2023 Default History Genericprovider LABORATORY Final Result * PROTIME (OUTSIDE LAB) (10/21/2023) [facility] PROTIME 35.2 INR 3.6 10/21/2023 Default History Genericprovider LAB-OUTSIDE/ABST RACTED Final Result * PROTIME (OUTSIDE LAB) (01/29/2023) [facility] PROTIME 17.7 INR 1.7 01/29/2023 Default History Genericprovider LAB-OUTSIDE/ABST RACTED Final Result * PROTIME (OUTSIDE LAB) (07/14/2022) [facility] PROTIME 36.0 INR 3.7 07/14/2022 [facility] Abstract LAB-OUTSIDE/ABSTRACTED Final Result * PROTIME (OUTSIDE LAB) (04/28/2022) PROTIME 32.9 INR 3.2 04/28/2022 us Doc [facility] Abstract LAB-OUTSIDE/ABSTRACTED Final Result * PROTIME (OUTSIDE LAB) (03/25/2022) PROTIME 24.8 INR 2.4 03/25/2022 us Doc [facility] Abstract LAB-OUTSIDE/ABSTRACTED Final Result * PROTIME (OUTSIDE LAB) (03/17/2022) PROTIME 27.3 INR 2.6 03/17/2022 us Doc [facility] Abstract LAB-OUTSIDE/ABSTRACTED Final Result documented in this encounter Visit Diagnoses Not on filedocumented in this encounter Care Teams Radio Operator Relationship Specialty Start Date End Date Luke Duarte MD [address] [place] [phone] PCP - General INTERNAL MEDICINE 10/18/19 Susan Carmen MD [address] [place] [address] [place] Dynamo Repairer CARDIOVASCULAR DISEASE 04/07/16 Fly Crum MD [address] [place], [place] [id number] EP Dynamo Repairer Electrophysiology 07/10/16 Nando Adler MD [address] [place] [address] CARDIAC ELECTROPHYSIOLOGY 09/17/22 documented as of this encounter
--- OUTSIDE RECORDS SUMMARY | 2024-12-07 15:03 | XMS_ITS | Encounter Summary ---
Author Organization [facility] Address [address] [place] [address] Phone Care Team Providers Care Utility Mechanic Name Role Phone Luke Duarte MD Primary Care Provider [phone] Encounter Details Date Type Department Care Team (Late st Contact Info) Description 11/17/2024 Telephone [facility] Cardiology [address] [facility] Advanced Medicine 8th Floor [address] [place] [phone] Nando Adler MD PhD [address] [facility] [address] [place] [address] Social History Tobacco Use Types Packs/Day Years [...] on file Legal Sex Male 1:59 AM MEDICAL RECORDS CUSTODIAN Gender Identity Not on file Sexual Orientation Not on file documented as of this encounter Miscellaneous Notes * Telephone Encounter - Talia Anthony RN - 12/06/2024 9:28 AM CST Spoke to . She said she thinks the patient was confused as he had other tests done there but not an EKG. When the weather improves she will take him there to get it done. Thanks for your efforts. CAL RECORDS CUSTODIAN * Telephone Encounter - Nilda Brown CMA - 12/06/2024 8:57 AM MEDICAL RECORDS CUSTODIAN Once again, the EKG they sent is from 2019. Are we sure he went to [place] to have it done? CAL RECORDS CUSTODIAN * Telephone Encounter - Talia Anthony RN - 12/01/2024 1:53 PM CST Spoke to patient today and he said he did have an EKG done at [place]. Would you mind looking intoit again? CAL RECORDS CUSTODIAN * Telephone Encounter - Talia Anthony RN - 11/29/2024 10:28 AM CST Attempted to call patient but no VM set up. Checking to see if patient got an EKG done at [facility]. CAL RECORDS CUSTODIAN * Telephone Encounter - Talia Anthony RN - 11/22/2024 12:23 PM CST Would you be able to track down the EKG from [facility]? CAL RECORDS CUSTODIAN * Telephone Encounter - Yvette Mcleod RN - 11/17/2024 9:54 AM CST Pt will go to [facility] today or tomorrow for EKG. He will also get BMP at [facility]. I sent in refill for dofetilide as he only had 4 pills left. Please follow up on results. CAL RECORDS CUSTODIAN documented in this encounter Plan of Treatment Not on file documented as of this encounter Visit Diagnoses Not on filedocumented in this encounter Care Teams Utility Mechanic Relationship Specialty Start Date End Date Luke Duarte MD [address] [facility] [place] [address] [place] [phone] PCP - General Internal Medicine 11/17/19 documented as of this encounter
--- OUTSIDE RECORDS SUMMARY | 2024-12-07 15:03 | XMS_ITS | Encounter Summary ---
Author Organization [facility] Address [address] [place] [address] Care Team Providers Care Professor Of Psychiatry Name Role Phone Susan Carmen MD Unavailable [phone] Fly Crum MD Unavailable Luke Duarte MD Primary Care Provider [phone] Nando Adler MD Unavailable [phone] Encounter Details Date Type Department Care Team (Late st Contact Info) Description 02/27/2020 Pre-Procedure Call [employer] [address] Fly Crum MD [address] [facility]. 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 [address] [place], [place] [phone] documented as of this encounter Visit Diagnoses Not on filedocumented in this encounter Additional Health Concerns Infection Onset Date Last Indicated Resolved Time COVID-19 Rule Out 02/26/2020 02/26/2020 02/28/2020 8:44 AM CDT documented as of this encounter Care Teams Professor Of Psychiatry Relationship Specialty Start Date End Date Luke Duarte MD [address] [facility] [address] [facility] [address] [place] [address] PCP - General INTERNAL MEDICINE 10/18/19 Susan Carmen MD [facility]. [address] [place], [place] [address] [place] Global Sales Executive CARDIOVASCULAR DISEASE 04/07/16 Fly Crum MD [facility]. [address] [place], [place] [phone] EP Global Sales Executive Electrophysiology 07/10/16 Nando Adler MD [address] [place] [address] CARDIAC ELECTROPHYSIOLOGY 09/17/22 documented as of this encounter
--- OUTSIDE RECORDS SUMMARY | 2024-12-07 15:03 | XMS_ITS | Encounter Summary ---
Author Organization [facility] Address [address] [place] [address] Phone Care Team Providers Care Armature Winder Repair Helper Name Role Phone Kashmir Lopez MD Primary Care Provider [phone] Luke Duarte MD Primary Care Provider [phone] Encounter Details Date Type Department Care Team (Latest Contact Info) Description 11/16/2019 Orders Only [facility] Scanning, Provider Social History Tobacco Use Types Packs/Day Years Used Date Smoking Tobacco: Never Smokeless Tobacco: Never Alcohol Use Standard Drinks/Week Comments No 0 (1 standard drink = 0.6 oz pur e alcohol) Sex and Gender Information Value Date Recorded Sex Assigned at Not on file Legal Sex Male 1:59 AM 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 SALES 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 Gender Identity Not on file Sexual Orientation Not on file documented as of this encounter Plan of Treatment Not on file documented as of this encounter Procedures Procedure Name Priority Date/Time Associated Diagnosis Comments SLEEP LAB/STUDY - RESULT 11/16/2019 documented in this encounter Results * SLEEP LAB/STUDY - RESULT (11/16/2019) us Provider Scanning Final Result documented in this encounter Visit Diagnoses Not on filedocumented in this encounter Care Teams Armature Winder Repair Helper Relationship Specialty Start Date End Date Kashmir Lopez MD [address] [place] [address] PCP - General Internal Medicine 05/25/19 11/16/19 Luke Duarte MD [address] [facility] [address] [place] [address] PCP - General Internal Medicine 11/17/19 documented as of this encounter
== END 2024-12-07 14:55 | disposition home or self-care (01) ==
PROVIDERS: PCP Internal Medicine
DX: R94.31 Abnormal electrocardiogram [ECG] [EKG] (principal); I48.91 Unspecified atrial fibrillation; Z79.899 Other long term (current) drug therapy
CPT/HCPCS: 93005

== ENCOUNTER 2025-03-23 14:05 | Outpatient (CLI) | payer MEDICARE, SELFPAY ==
--- NOTE | ~2025-03-23 | XR_ITS ---
EXAM: XR hip BI wo pelvis DATE: 03/23/2025 14:41 HISTORY: M15.0 - Primary generalized (osteo)arthritis . COMPARISON: None available. FINDINGS: Lumbar degenerative disc disease. Recent bone mineral density. Mesh anchors over the right pelvis. Mild degenerative change in the left hip, pubic symphysis, and sacroiliac joint. Scattered p elvic enthesopathy. Likely bone island over the sacrum. No fracture or dislocation. IMPRESSION: Osteopenia. Mild right hip osteoarthritis. Reviewed, dictated and finalized at location K.
--- NOTE | ~2025-03-23 | XR_ITS ---
XR shoulder LT min 2V 03/23/2025 14:41 Indication: Osteoarthritis Procedure: 5 views left shoulder Comparison: 12/16/2023 Findings: Progression of severe left glenohumeral joint osteoarthritis. Loose bodies present inferior to the joint space. There is calcific tendinopathy. Mild osteoarthritis of the acromioclavicular ed nt. No acute fracture or traumatic malalignment. 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 Reviewed, dictated and finalized at location A. 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
--- NOTE | ~2025-03-23 | XR_ITS ---
XR shoulder RT min 2V 03/23/2025 14:41 Indication: Right shoulder pain Procedure: 4 views right shoulder Comparison: No prior studies for comparison. Findings: There is moderate glenohumeral joint osteoarthritis. No fracture or traumatic malalignment. No significant soft tissue abnormality. No foreign bodies Impression: 1: Moderate right glenohumeral joint osteoarthritis. Reviewed, dictated and finalized at location A. Impression: 1: Moderate right glenohumeral joint osteoarthritis.
--- OUTSIDE RECORDS SUMMARY | 2025-03-23 14:11 | XMS_ITS | Clinical Summary ---
Author Organization [facility] Address [address] [place] [address] Care Team Providers Care Flower Cutter Name Role Phone Luke Duarte MD Primary Care Provider [phone] Allergies No known active allergies Medications simvastatin (ZOCOR) 20 mg tablet Take 1 tablet (20 mg total) by mouth nightly 05/11/20 18 Active busPIRone (BUSPAR) 10 mg tablet Take 1 tablet (10 mg total) by mouth nightly 05/18/20 19 Active tamsulosin (FLOMAX) 0.4 mg extended release capsule Take 1 capsule (0.4 mg total) by mouth nightly 1 04/10/20 19 Active levothyroxine (SYNTHROID) 125 mcg tablet Take 1 tablet (125 mcg total) by mouth pharmacist in charge owner before breakfast 10/25/19 21 Active liothyronine (CYTOMEL) 5 mcg tablet Take 1 tablet (5 mcg total) by mouth every morning 10/07/20 20 Active saw palmetto 450 mg capsule Take 1 capsule by mouth 2 (two) times a day Active metoprolol XL (TOPROL-XL) 50 mg extended [...] of breath 8.5 g 5 12/14/19 24 Active warfarin (COUMADIN) 5 mg tablet TAKE 1 & 1/2 TABLET BY MOUTH ON MONDAYS AND WEDNESDAYS AND 2 TABS ALL THE OTHER DAYS OF THE WEEK. 11/29/19 25 Active fluticasone propionate (FLONASE) 50 mcg/actuation nasal spray Administer 2 sprays into each nostril daily 16 g 6 12/12/19 25 025 Active budesonide-for moteroL (SYMBICORT) 80-4.5 mcg/actuation inhaler Inhale 2 puffs 2 (two) times a day Rinse mouth with water after use. Do not swallow. 1 each 3 12/12/19 25 026 Active Additional Information Patient not taking.Reported on 02/28/2025 dofetilide (TIKOSYN) 500 mcg capsule TAKE 1 CAPSULE BY MOUTH TWICE DAILY . PLEASE CALL [phone] TO RESCHEDULE MISSED APPOINTMENT FOR FUTURE REFILLS 60 capsule 5 03/21/20 25 Active dofetilide (TIKOSYN) 500 mcg capsule Take 1 capsule (500 mcg total) by mouth 2 (two) times a day (Please call [phone] to reschedule missed appointment for future refills.) 60 capsule 02/20/20 25 025 Discontinued Active Problems Problem Noted Date Diagnosed Date Atrial tachycardia 02/28/2025 Cognitive decline 04/11/2024 Assessment & Plan (04/11/2024 2:52 PM CDT): Referral to audiology for hearing evaluation. Continue following up with sleep medicine. Asked CS and patient to bring updated medication list so we could review his medications. Follow-up with Dr. Carter (10/2024). SOB (shortness of breath) 12/14/2023 Anxiety 10/01/2023 Assessment & Plan (10/01/2023 5:33 PM ARM REST BUILDER): -Continue home remeron, buspar, atarax Atrial flutter 08/20/2023 Assessment & Plan (02/28/2025 10:33 AM CDT): -Persistent atrial flutter treated by PVI 2020 (Dr. Crum), 11/2022 (Dr. Adler) -Recurrent persistent atrial flutter s/p repeat ablation 10/01/2023 (Dr. Adler) - ablation of 2 LA flutters -Post ablation, his SOB improved -Today he appears to be in an atrial tachycardia, asymptomatic. He missed a dose of Tikosyn yesterday -Continue Tikosyn and metoprolol. Will arrange for EKG locally next week. If still in atrial tachycardia, discussed outpatient cardioversion -Continue warfarin for stroke risk reduction -Encouraged lifestyle modifications including treatment of sleep apnea to reduce atrial arrhythmia recurrence Assessment & Plan (10/28/2023 11:38 AM ARM REST BUILDER): Persistent atrial flutter treated by PVI 2020 [...] recurrence Assessment & Plan (10/02/2023 10:54 AM ARM REST BUILDER): Patient presents s/p ablation for medically refractory flutter s/p prior ablations and DCCV - Bedrest per EP -Telemetry overnight - Continue/resume home warfarin: 10mg , 12.5mg rest - Continue home dofetilide, metoprolol - PPI x30 days Cerebrovascular accident (CVA), unspecified mech anism 05/24/2023 Hypothyroid 11/26/2022 Assessment & Plan (10/01/2023 5:34 PM ARM REST BUILDER): -Continue home synthroid, cytomel Assessment & Plan (11/26/2022 4:20 PM ARM REST BUILDER): -cont home synthroid, cytomel Persistent atrial fibrillation 02/14/2021 Overview (02/14/2021): Added automatically from request for surgery [id number] Assessment & Plan (11/27/2022 3:31 PM ARM REST BUILDER): S/p A flutter ablation via pulmonary vein [...] 05/30/2020 Assessment & Plan (10/01/2023 5:33 PM ARM REST BUILDER): -Continue home lunesta Assessment & Plan (11/26/2022 4:19 PM ARM REST BUILDER): -home mirtazapine, Lunesta Complex sleep apnea syndrome 11/17/2019 Assessment & Plan (10/01/2023 5:32 PM ARM REST BUILDER): -Nocturnal nppv, home unit Assessment & Plan (11/26/2022 4:14 PM ARM REST BUILDER): Brought home CPAP 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 Atrial fibrillation 05/19/2018 Assessment & Plan (04/14/2021 1:42 PM CDT): On coumadin High risk medication use 05/19/2018 Assessment & Plan (02/28/2025 10:36 AM CDT): -Renal function stable, eGFR 76 -QT interval stable, QTc 455 ms -EKG and BMP every 6 months for monitoring of side effects/toxicities of high risk medication Tikosyn (dofetilide) -Continue Tikosyn 500 mcg BID Assessment & Plan (10/28/2023 11:35 AM ARM REST BUILDER): Renal function stable, eGFR 64 QT interval stable, QTc 459 ms Continue dofetilide 500 mcg BID Asthma Assessment & Plan (10/01/2023 5:32 PM ARM REST BUILDER): F/b OSH pulm -Breo ellipta for home inhaler Resolved Problems Problem Noted Date Diagnosed Date Resolved Date Atrial flutter 11/26/2022 11/26/2022 Encounters Date Type Department Care Team Description 03/16/2025 Telephone [facility] Cardiology [facility] 8th [place] [address] [place] [address] Esperanza Aguirre, JUAN JOSE 02/28/2025 9:45 AM CDT Office Visit [facility] Cardiology [facility] 8th [place] [address] [place] [address] Esperanza Aguirre NP High risk medication use (Primary Dx); Atypical atrial flutter (HCC); Atrial fibrillation, unspecified type (HCC); Atrial tachycardia 02/28/2025 Results Follow-Up [facility] [address] [facility] 8th [place] [address] [place] [address] Esperanza Aguirre NP ECG 12 lead, Basic metabolic panel 02/16/2025 Telephone [facility] [address] [facility] 8th [place] [address] [place] [address] Thalia Lantigua from Last 3 Months Surgical History Surgery Date Site/Laterality Comments REPLACEMENT TOTAL KNEE Left CARDIOVERSION last CV 05/04/22, 02/18/21, 11/2022 COLONOSCOPY EYE SURGERY Bilateral cataracts Medical History Medical History Date Comments Hx Other Medical 2010 Arrhythmias (Nikolai Tan) Atrial fibrillation and flutter (HCC) Sleep apnea complex ANDERS Insomnia Anxiety 10/01/2023 Atrial flutter (HCC) 11/26/2022 Atrial flutter (HCC) 11/26/2022 Family History Medical History Relation [...] on file Legal Sex Male 1:59 AM ARM REST BUILDER Gender Identity Not on file Sexual Orientation Not on file Obstetrics History Last Filed Vital Signs Vital Sign Reading Time Taken Comments Blood Pressure 113/71 02/28/2025 9:58 AM CDT Pulse 99 02/28/2025 9:58 AM CDT Temperature 37.1 C (98.8 F) 12/12/2024 2:18 PM ARM REST BUILDER Respiratory Rate 18 12/12/2024 2:18 PM ARM REST BUILDER Oxygen Saturation 98% 02/28/2025 9:58 AM CDT Inhaled Oxygen Concentration - - Weight 91.7 kg (202 lb 3.2 oz) 02/28/2025 9:58 A M CDT Height 177.8 cm (5' 10) 02/28/2025 9:58 AM CDT Body Mass Index 29.01 02/28/2025 9:58 AM CDT Plan of Treatment Health Maintenance Due Date Last Done Comments Depression Screening 1942 DTaP/Tdap/Td Vaccine (1 - Tdap) 1953 Hepatitis B Screening 01/03/1960 Zoster Vaccine (1 of 2) 01/03/1992 Well Visit 65+ 2007 Pneumococcal vaccine 65+ (2 of 2 - PPSV23) 08/28/2019 07/03/2019 Fall Risk Assessment 10/02/2024 10/02/2023 Influenza Vaccine (Season Ended) 2025 09/06/2016, 09/06/2016, 08/10/2012 Medical Devices Implanted Type Area Railroad Track Mechanic Device Identifier Shelf Expiration Date Model / Serial / Lot [employer] Vascade Mvp 6-12fr Venous Closure [id number] - [id number] - [id number] Implanted:Qty: 1 on 10/01/2023 by Michael Britt MD at [facility] Collagen Right: Femoral Vein [employer] 06/03/2025 [id number] [id number] / [id number] 24A / [id number] [employer] Vascade Mvp 6-12fr Venous Closure [id number] - [id number] - [id number] Implanted:Qty: 1 on 10/01/2023 by Michael Britt MD at [facility] Collagen Right: Femoral Vein [employer] 06/03/2025 800-612C- 10U / [id number] 24A / [id number] 24A [employer] Vascade Mvp 6-12fr Venous Closure [id number] - [id number] - [id number] Implanted:Qty: 1 on 10/01/2023 by Michael Britt MD at [facility] Collagen Left: Femoral Vein [employer] 06/03/2025 800-612C- 10U / [id number] 24A / [id number] [id number] [employer] Device Closure Vascade Od5 Fr Femoral Artery [id number] - [id number] - [id number] Implanted:Qty: 1 on 10/01/2023 by Michael Britt MD at [facility] Collagen Left: Femoral Vein [employer] 06/17/2025 [id number] -[id number] / [id number] / [id number] Screw Screw Knee Description:Left knee replac ement Procedures Procedure Name Priority Date/Time Associated Diagnosis Comments BASIC METABOLIC PANEL Routine 02/28/2025 11:24 AM CDT High risk medication use Atypical atrial flutter (HCC) Atrial fibrillation, unspecified type (HCC) ECG 12-LEAD Routine 02/28/2025 9:53 AM CDT High risk medication use from Last 3 Months Results * Basic metabolic panel (02/28/2025 11:24 AM CDT) Glucose 86 70 - 99 mg/dL [facility] - 01 BUN 18 8 - 27 mg/dL [facility] - 01 Creatinine, Serum 0.97 0.76 - 1.27 mg/dL [facility] - 01 eGFR 77 >59 mL/min/1.73 [facility] - 01 BUN/creat ratio 19 10 - 24 [facility] - 01 Sodium 140 134 - 144 mmol/L [facility] - 01 Potassium, sr 4.3 3.5 - 5.2 mmol/L [facility] - 01 Chloride 103 96 - 106 mmol/L [facility] - 01 CO2 21 20 - 29 mmol/L [facility] - 01 Calcium 9.0 8.6 - 10.2 mg/dL [facility] - 01 Blood 02/28/2025 11:2 4 AM CDT 02/28/2025 Narrative [facility] - 03/01/2025 8:11 AM CDT Performed at: - [facility] [place] [id number] Vortex Operator: Tank Acuna PhD, Phone: [phone] us Esperanza Aguirre NP LAB BLOOD ORDERABLES Rubi l Result [facility] - 01 * ECG 12 lead (02/28/2025 9:53 AM CDT) us Esperanza Aguirre NP ECG ORDERABLES Edited Re sult - Final from Last [address] [facility] CON [facility] MDCR HMO REF [facility] Address: [address] [address] [place] [address] UHC MEDICARE ADVANTAGE [facility] Address: [address] [place], [place] [id number] UHC MEDICARE ADVANTAGE [facility] Address: [address] [address] [place] [address] Advance Directives For more information, please contact: [phone] * Full Code (Latest Code Status on File) Date Activated Date Inactivated Comments 10/01/2023 3:16 PM 10/02/2023 5:36 PM * Full Code Date Activated Date Inactivated Comments 05/24/2023 2:07 PM 05/25/2023 5:40 PM * Full Code Date Activated Date Inactivated Comments 11/26/2022 5:32 PM 11/27/2022 4:10 PM Care Teams Flower Cutter Relationship Specialty Start Date End Date Luke Duarte MD [address] [facility] [address] [facility] [address] [place] [address] PCP - General Internal Medicine 11/17/19
--- OUTSIDE RECORDS SUMMARY | 2025-03-23 14:11 | XMS_ITS | Referral Summary ---
Author Organization [facility] Address [address] [place] [address] Care Team Providers Care Pot Fisher Name Role Phone Luke Duarte MD Primary Care Provider [phone] Encounters Date Type Department Care Team Description 03/16/2025 Telephone [facility] [address] [place] [address] [place] [address] [place] [phone] Esperanza Aguirre NP 02/28/2025 Results Follow-Up [facility] [address] [place] [address] [place] [address] [place] [id number] Esperanza Aguirre NP ECG 12 lead, Basic metabolic panel 02/28/2025 9:45 AM CDT Office Visit [facility] [address] [place] [address] [place] [phone] Esperanza Aguirre NP High risk medication use (Primary Dx); Atypical atrial flutter (HCC); Atrial fibrillation, unspecified type (HCC); Atrial tachycardia 02/16/2025 Telephone [facility] [address] [place] [address] [place] [address] [place] [address] Thalia Lantigua from Last 3 Months Allergies No known [...] 1 tablet (125 mcg total) by mouth early childhood coordinator before breakfast 10/25/19 21 Active liothyronine (CYTOMEL) [...] BY MOUTH TWICE DAILY . PLEASE CALL [phone] TO RESCHEDULE MISSED APPOINTMENT FOR FUTURE REFILLS 60 capsule 5 03/21/20 25 Active dofetilide (TIKOSYN) 500 mcg capsule Take 1 capsule (500 mcg total) by mouth 2 (two) times a day (Please call [phone] to reschedule missed appointment for future refills.) [...] 10/01/2023 Assessment & Plan (10/01/2023 5:33 PM COLLIERY CLERK): -Continue home remeron, buspar, atarax Atrial flutter [...] recurrence Assessment & Plan (10/28/2023 11:38 AM COLLIERY CLERK): Persistent atrial flutter treated by PVI 2020 [...] recurrence Assessment & Plan (10/02/2023 10:54 AM COLLIERY CLERK): Patient presents s/p ablation for medically refractory flutter s/p prior ablations and DCCV - Bedrest per EP -Telemetry overnight - Continue/resume home warfarin: 10mg /, 12.5mg rest - Continue home dofetilide, metoprolol - PPI x30 days Cerebrovascular accident (CVA), unspecified mech anism 05/24/2023 Hypothyroid 11/26/2022 Assessment & Plan (10/01/2023 5:34 PM COLLIERY CLERK): -Continue home synthroid, cytomel Assessment & Plan (11/26/2022 4:20 PM COLLIERY CLERK): -cont home synthroid, cytomel Persistent atrial fibrillation 02/14/2021 Overview (02/14/2021): Added automatically from request for surgery [id number] Assessment & Plan (11/27/2022 3:31 PM COLLIERY CLERK): S/p A flutter ablation via pulmonary vein [...] 05/30/2020 Assessment & Plan (10/01/2023 5:33 PM COLLIERY CLERK): -Continue home lunesta Assessment & Plan (11/26/2022 4:19 PM COLLIERY CLERK): -home mirtazapine, Lunesta Complex sleep apnea syndrome 11/17/2019 Assessment & Plan (10/01/2023 5:32 PM COLLIERY CLERK): -Nocturnal nppv, home unit Assessment & Plan (11/26/2022 4:14 PM COLLIERY CLERK): Brought home CPAP 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 Assessment & Plan (06/12/2019 1:48 PM CDT): I have recommended voice therapy here at the [facility] in order [...] BID Assessment & Plan (10/28/2023 11:35 AM COLLIERY CLERK): Renal function stable, eGFR 64 QT interval stable, QTc 459 ms Continue dofetilide 500 mcg BID Asthma Assessment & Plan (10/01/2023 5:32 PM COLLIERY CLERK): F/b OSH pulm -Breo ellipta for home inhaler Resolved Problems Problem Noted Date Diagnosed Date Resolved Date Atrial flutter 11/26/2022 11/26/2022 Social History Tobacco Use Types Packs/Day Years [...] on file Legal Sex Male 1:59 AM COLLIERY CLERK Gender Identity Not on file Sexual Orientation Not on file Last Filed Vital Signs Vital Sign Reading Time Taken Comments Blood Pressure 113/71 02/28/2025 9:58 AM CDT Pulse 99 02/28/2025 9:58 AM CDT Temperature 37.1 C (98.8 F) 12/12/2024 2:18 PM COLLIERY CLERK Respiratory Rate 18 12/12/2024 2:18 PM COLLIERY CLERK Oxygen Saturation 98% 02/28/2025 9:58 AM CDT Inhaled Oxygen Concentration - - Weight 91.7 kg (202 lb 3.2 oz) 02/28/2025 9:58 A M CDT Height 177.8 cm (5' 10) 02/28/2025 9:58 AM CDT Body Mass Index 29.01 02/28/2025 9:58 AM CDT Plan of Treatment Not on file Medical Devices Implanted Type Area Instructor Of Nursing Device Identifier Shelf Expiration Date Model / Serial / Lot [employer] Vascade Mvp 6-12fr Venous Closure [id number] - [id number] - [id number] Implanted:Qty: 1 on 10/01/2023 by Michael Britt MD at [facility] Collagen Right: Femoral Vein [employer] 06/03/2025 800-612C- 10U / [id number] / [id number] [employer] Vascade Mvp 6-12fr Venous Closure [id number] - [id number] - [id number] Implanted:Qty: 1 on 10/01/2023 by Michael Britt MD at [facility] Collagen Right: Femoral Vein [employer] 06/03/2025 800-612C- 10U / [id number] 24A / [id number] [id number] [employer] Vascade Mvp 6-12fr Venous Closure [id number] - [id number] - [id number] Implanted:Qty: 1 on 10/01/2023 by Michael Britt MD at [facility] Collagen Left: Femoral Vein [employer] 06/03/2025 800-612C- 10U / [id number] 24A / [id number] [id number] [employer] Device Closure Vascade Od5 Fr Femoral Artery [id number] - [id number] - [id number] Implanted:Qty: 1 on 10/01/2023 by Michael Britt MD at [facility] Collagen Left: Femoral Vein [employer] 06/17/2025 [id number] -[id number] / [id number] / [id number] Screw Screw Knee Description:Left knee replac ement Procedures Procedure Name Priority Date/Time Associated Diagnosis Comments BASIC METABOLIC PANEL Routine 02/28/2025 11:24 AM CDT High risk medication use Atypical atrial flutter (HCC) Atrial fibrillation, unspecified type (HCC) ECG 12-LEAD Routine 02/28/2025 9:53 AM CDT High risk medication use from Last 3 Months Results * Basic metabolic panel (02/28/2025 11:24 AM CDT) [facility] Glucose 86 70 - 99 mg/dL [facility] [...] 03/01/2025 8:11 AM CDT Performed at: - [address] [id number] Dramatic Director: Tank Acuna PhD, Phone: [phone] us Esperanza Aguirre NP LAB BLOOD ORDERABLES Rubi l Result [facility] - 01 * ECG 12 lead (02/28/2025 9:53 AM CDT) us Esperanza Aguirre TAX AUDITOR ECG ORDERABLES Edited Re sult - Final from Last 3 Months Insurance [facility] ADVANTAGE CON [facility] MDCR HMO REF [facility] MED[facility] Address: [facility] [address] [place] [address] UHC MEDICARE ADVANTAGE [facility] Address: [address] [address] [place] [address] UHC MEDICARE ADVANTAGE [facility] Address: [id number] [place] [address] Advance Directives For more information, please contact: [phone] * Full Code (Latest Code Status on File) Date Activated Date Inactivated Comments 10/01/2023 3:16 PM 10/02/2023 5:36 PM * Full Code Date Activated Date Inactivated Comments 05/24/2023 2:07 PM 05/25/2023 5:40 PM * Full Code Date Activated Date Inactivated Comments 11/26/2022 5:32 PM 11/27/2022 4:10 PM Care Teams Pot Fisher Relationship Specialty Start Date End Date Luke Duarte MD [address] [place] [address] PCP - General Internal Medicine 11/17/19
--- OUTSIDE RECORDS SUMMARY | 2025-03-23 14:11 | XMS_ITS | Encounter Summary ---
Author Organization [facility] Address [address] [place] [address] Phone Care Team Providers Care Risk And Compliance Analytics Director Name Role Phone Luke Duarte MD Primary Care Provider [phone] Encounter Details Date Type Department Care Team (Late st Contact Info) Description 02/28/2025 Results Follow-Up [facility] [address] [facility] 8th [place] [address] [place] [address] Esperanza Aguirre, JUAN JOSE [address] [facility] [address] [place] [address] ECG 12 lead, Basic metabolic panel Social History Tobacco Use Types Packs/Day Years [...] on file Legal Sex Male 1:59 AM DEVELOPMENT WRITER Gender Identity Not on file Sexual Orientation Not on file documented as of this encounter Plan of Treatment Not on file documented as of this encounter Visit Diagnoses Not on filedocumented in this encounter Care Teams Risk And Compliance Analytics Director Relationship Specialty Start Date End Date Luke Duarte MD [address] [place] [address] PCP - General Internal Medicine 11/17/19 documented as of this encounter
--- OUTSIDE RECORDS SUMMARY | 2025-03-23 14:11 | XMS_ITS | Encounter Summary ---
Author Organization [facility] Address [address] [place] [address] Phone Care Team Providers Care Disaster Director Name Role Phone Kashmir Lopez MD Primary Care Provider [phone] Luke Duarte MD Primary Care Provider [phone] Encounter Details Date Type Department Care Team [...] on file Legal Sex Male 1:59 AM HOME STAGING SPECIALIST Gender Identity Not on file Sexual Orientation [...] on filedocumented in this encounter Care Teams Disaster Director Relationship Specialty Start Date End Date Kashmir Lopez MD [address] [place] [address] PCP - General Internal Medicine 05/25/19 11/16/19 Luke Duarte MD [address] [place] [address] PCP - General Internal Medicine 11/17/19 documented as of this encounter
--- OUTSIDE RECORDS SUMMARY | 2025-03-23 14:11 | XMS_ITS | Continuity of Care Document ---
Author Organization [facility] Address [address] [facility] [address] [place] [address] Phone Care Team Providers Care Adjustment Supervisor Name Role Phone Markos An Unavailable Unavailable Procedures Procedure Date Eye Exam, New Patient Advance Directives Directive Yes / No Effective Date File Name No Information Encounters Encounter Description Practice Location Reason(s) For Visit Diagnoses Date Provider Providers Copied on Encounter [facility], [address], [place], [place], [id number], [place] tel:[phone] [facility] No Information [address] [facility] [address], [address], [place]. tel:[phone] Family History Family Member Type Diagnosis Age At Onset No Information Payers Payer name Insurance type Covered democrat ID Authoriza tion(s) [employer] [id number] Written Reffe ral Social History Type Description [...]
--- OUTSIDE RECORDS SUMMARY | 2025-03-23 14:11 | XMS_ITS | Encounter Summary ---
Author Organization [facility] Address [address] [place] [address] Phone Care Team Providers Care Securities Compliance Examiner Name Role Phone Kashmir Lopez MD Primary Care Provider Luke Duarte MD Primary Care Provider [phone] Encounter Details Date Type Department Care Team (Late st Contact Info) Description 08/31/2019 Telephone [facility]iology [address] [facility] 8th [place] [address] [place] [address] Nando Adler MD PhD [address] [facility] [address] [place], [place] [id number] Social History Tobacco Use Types Packs/Day Years Used Date Smoking Tobacco: Never Smokeless Tobacco: Never Alcohol Use Standard Drinks/Week Comments No 0 (1 standard drink = 0.6 oz pur e alcohol) Sex and Gender Information Value Date Recorded Sex Assigned at Not on file 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
--- NOTE | 2025-03-23 14:49 | ECG_ITS ---
Test Date: 2025-03-23 14:58:46 Measurements Intervals [place] Rate: 85 P: 67 SD: 269 QRS: 18 QRSD: 104 T: 31 QT: 401 QTc: 477 Interpretive Statements SINUS RHYTHM WITH FIRST DEGREE AV BLOCK CONSIDER INFERIOR INFARCT, AGE INDETERMINATE PROLONGED QT INTERVAL ABNORMAL ECG Compared to ECG 12/07/2024 15:26:27 NO SIGNIFICANT CHANGE Electronically Signed On 03-23-2025 15:31:54 CDT by Trent Gonzalez D.O.
== END 2025-03-23 14:06 | disposition home or self-care (01) ==
PROVIDERS: PCP Internal Medicine; Visit Provider Internal Medicine
DX: R94.31 Abnormal electrocardiogram [ECG] [EKG] (principal); M25.512 Pain in left shoulder; M19.011 Primary osteoarthritis, right shoulder; M85.859 Other specified disorders of bone density and structure, unspecified thigh; M16.11 Unilateral primary osteoarthritis, right hip; I48.91 Unspecified atrial fibrillation
CPT/HCPCS: 73030; 73521; 93005

== ENCOUNTER 2025-06-29 15:35 | Outpatient (CLI) | payer MEDICARE, SELFPAY ==
--- OUTSIDE RECORDS SUMMARY | 2008-03-28 04:41 | XMS_ITS | Continuity of Care Document ---
Author Organization [facility] Address [address] [facility] [address] [place] [address] Phone Care Team Providers Care Phone Operator Name Role Phone Markos An Unavailable Unavailable Procedures Procedure Date Eye Exam, New Patient Advance Directives Directive Yes / No Effective Date File Name No Information Encounters Encounter Description Practice Location Reason(s) For Visit Diagnoses Date Provider Providers Copied on Encounter [facility], [address], [place], [place], [id number], [place] tel:[phone] [facility] No Information [address] [facility] [address], [place], [address], [place]. tel:[phone] Family History Family Member Type Diagnosis Age At Onset No Information Payers Payer name Insurance type Covered constitution party ID Authoriza tion(s) [employer] [id number] Written Reffe ral Social History Type Description Quantity Date Captured Comments Sex Male Smoking Status No Information Chief Complaint And Reason For Visit No Information Reason For Referral Reason For Referral No Information History Of Present Illness Encounter Date Complaint History Of Prese nt Illness No Information Functional Status Date Functional Assessmen t No Information Instructions Date Instruction Additional Infor mation No Information Assessments Type Assessment Date No Information Patient Care Teams Name Effective Dates (start - stop) Status Members No Information
--- NOTE | ~2025-06-29 | XR_ITS ---
EXAMINATION: XR chest 2V, 06/29/2025 15:41 CDT HISTORY: R05.9 - Cough, unspecified, FOR MONTHS COMPARISON: No comparisons available. Technique: 2 views obtained. Findings: The lungs are clear, no effusion. No pneumothorax. Heart is normal size. Mediastinal and hilar contours are within normal limits. Bony thorax no acute abnormality. Impression: No acute cardiopulmonary abnormality. Reviewed, dictated and finalized at location A. Impression: No acute cardiopulmonary abnormality.
--- OUTSIDE RECORDS SUMMARY | 2025-06-29 16:05 | XMS_ITS | Encounter Summary ---
Author Organization [facility] Address [address] [place] [address] Phone Care Team Providers Care School Services Officer Name Role Phone Kashmir Lopez MD Primary Care Provider [phone] Luke Duarte MD Primary Care Provider [phone] Encounter Details Date Type Department Care Team (Late st Contact Info) Description 08/31/2019 Telephone [facility]iology [address] [facility] 8th [place] [address] [place] [address] Nando Adler MD PhD [address] [facility] [address] [place], [place] [id number] Social History Tobacco Use Types Packs/Day Years Used Date Smoking Tobacco: Never Smokeless Tobacco: Never Alcohol Use Standard Drinks/Week Comments No 0 (1 standard drink = 0.6 oz pur e alcohol) Sex and Gender Information Value Date Recorded Sex Assigned at Not on file 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
--- OUTSIDE RECORDS SUMMARY | 2025-06-29 16:05 | XMS_ITS | Clinical Summary ---
Author Organization [facility] Address [address] [place] [address] Care Team Providers Care Underwriting Clerks Supervisor Name Role Phone Luke Duarte MD Primary Care Provider [phone] Allergies No known active allergies Medications simvastatin (ZOCOR) 20 mg tablet Take 1 tablet (20 mg total) by mouth nightly 8 Active busPIRone (BUSPAR) 10 mg tablet Take 1 tablet (10 mg total) by mouth nightly 9 Active tamsulosin (FLOMAX) 0.4 mg extended release capsule Take 1 capsule (0.4 mg total) by mouth nightly 1 9 Active levothyroxine (SYNTHROID) 125 mcg tablet Take 1 tablet (125 mcg total) by mouth [employer]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 1 Active liothyronine (CYTOMEL) 5 mcg tablet Take 1 tablet (5 mcg total) by mouth every morning 0 Active saw palmetto 450 mg capsule Take 1 capsule by mouth 2 (two) times a day Active metoprolol XL (TOPROL-XL) 50 mg extended release tablet Take 1 tablet (50 mg total) by mouth nightly 3 Active eszopiclone (LUNESTA) 3 mg tablet TAKE 1 TABLET BY MOUTH NIGHTLY AT BEDTIME 30 tablet 3 Active hydrOXYzine (ATARAX) 25 mg tablet 1 tablet by mouth at bedtime 30 tablet 11 3 Active cyclobenzaprine (FLEXERIL) 10 mg tabletIndicatio ns:Muscle Spasm Take 1 tablet (10 mg total) by mouth 3 (three) times a day as needed for muscle spasms for muscle spasms 3 Active warfarin (COUMADIN) 2 mg tablet Take 1 tablet (2 mg total) by mouth 5 (five) times a week 12.5mg MWFSS; 10mg TT Active pantoprazole DR (PROTONIX) 40 mg EC tabletIndicatio ns:Treatment of Non-Bleeding Gastric Disorder Take 1 tablet (40 mg total) by mouth daily 30 tablet 3 Active lisinopriL (PRINIVIL,ZESTR IL) 10 mg tablet Take 1 tablet (10 mg total) by mouth daily 4 Active mirtazapine (REMERON) 30 mg tablet Take 1 tablet by mouth nightly 30 tablet 4 Active atorvastatin (LIPITOR) 20 mg tablet Take 1 tablet (20 mg total) by mouth daily 4 Active cholecalciferol (VITAMIN D-3) 50,000 unit capsule 4 Active albuterol HFA (ProAir HFA) 90 mcg/actuation inhaler Inhale 2 puffs every 4 (four) hours as needed for wheezing or shortness of breath 8.5 g 5 4 Active warfarin (COUMADIN) 5 mg tablet TAKE 1 & 1/2 TABLET BY MOUTH ON MONDAYS AND WEDNESDAYS AND 2 TABS ALL THE OTHER DAYS OF THE WEEK. 5 Active fluticasone propionate (FLONASE) 50 mcg/actuation nasal spray Administer 2 sprays into each nostril daily 16 g 6 5 Active budesonide-form oteroL (SYMBICORT) 80-4.5 mcg/actuation inhaler Inhale 2 puffs 2 (two) times a day Rinse mouth with water after use. Do not swallow. 1 each 3 5 12/12/19 26 Active dofetilide (TIKOSYN) 500 mcg capsule TAKE 1 CAPSULE BY MOUTH TWICE DAILY . PLEASE CALL [phone] TO RESCHEDULE MISSED APPOINTMENT FOR FUTURE REFILLS 60 capsule 5 Active Active Problems Problem Noted Date Diagnosed Date Atrial tachycardia 02/28/2025 Mild cognitive impairment 04/11/2024 Assessment & Plan (04/12/2025 2:12 PM CDT): Overall, stable cognitive testing. Continue following with sleep medicine. We did have a discussion about how hydroxyzine can have negative effects to memory. Information was provided on the [employer]. Follow-up in 6 months or sooner if need be. Assessment & Plan (04/11/2024 2:52 PM CDT): Referral to audiology for hearing evaluation. Continue following up with sleep medicine. Asked CS and patient to bring updated medication list so we could review his medications. Follow-up with Dr. Carter (10/2024). SOB (shortness of breath) 12/14/2023 Anxiety 10/01/2023 Assessment & Plan (10/01/2023 5:33 PM MINERAL ECONOMIST): -Continue home remeron, buspar, atarax Atrial flutter [...] recurrence Assessment & Plan (10/28/2023 11:38 AM MINERAL ECONOMIST): Persistent atrial flutter treated by PVI 2020 (Dr. Crum), 11/2022 (Dr. Alder) Recurrent persistent atrial flutter s/p repeat ablation [...] recurrence Assessment & Plan (10/02/2023 10:54 AM MINERAL ECONOMIST): Patient presents s/p ablation for medically refractory flutter s/p prior ablations and DCCV - Bedrest per EP -Telemetry overnight - Continue/resume home warfarin: 10mg , 12.5mg rest - Continue home dofetilide, metoprolol - PPI x30 days Cerebrovascular accident (CVA), unspecified mech anism 05/24/2023 Hypothyroid 11/26/2022 Assessment & Plan (10/01/2023 5:34 PM MINERAL ECONOMIST): -Continue home synthroid, cytomel Assessment & Plan (11/26/2022 4:20 PM MINERAL ECONOMIST): -cont home synthroid, cytomel Persistent atrial fibrillation 02/14/2021 Overview (02/14/2021): Added automatically from request for surgery [id number] Assessment & Plan (11/27/2022 3:31 PM MINERAL ECONOMIST): S/p A flutter ablation via pulmonary vein [...] 05/30/2020 Assessment & Plan (10/01/2023 5:33 PM MINERAL ECONOMIST): -Continue home lunesta Assessment & Plan (11/26/2022 4:19 PM MINERAL ECONOMIST): -home mirtazapine, Lunesta 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 in order to [...] BID Assessment & Plan (10/28/2023 11:35 AM MINERAL ECONOMIST): Renal function stable, eGFR 64 QT interval stable, QTc 459 ms Continue dofetilide 500 mcg BID Asthma Assessment & Plan (10/01/2023 5:32 PM MINERAL ECONOMIST): F/b OSH pulm -Breo ellipta for home inhaler Resolved Problems Problem Noted Date Diagnosed Date Resolved Date Atrial flutter 11/26/2022 11/26/2022 Encounters Date Type Department Care Team Description 04/12/2025 1:45 PM CDT Office Visit [facility] [address] 6[address] [place] [address] Josué Contreras, JUAN JOSE Mild cognitive impairment (Primary Dx) from Last 3 Months Surgical History Surgery Date Site/Laterality Comments REPLACEMENT TOTAL KNEE Left CARDIOVERSION last CV 05/04/22, 02/18/21, 11/2022 COLONOSCOPY EYE SURGERY Bilateral cataracts Medical History Medical History Date Comments Hx Other Medical 2010 Arrhythmias (Nikolai Tan) Atrial fibrillation and flutter Sleep apnea complex ANDERS Insomnia Anxiety 10/01/2023 Atrial flutter (HCC) 11/26/2022 Atrial flutter (HCC) 11/26/2022 Family History Medical History Relation Name Comments Hypertension Father Family history of hypertension - (Added by Conv) Alzheimer's disease Mother Family h istory of Alzheimer's disease - onset age 70-75 in his mother (Added by TW Conv) Cancer Mother Family history of malignant neoplasm - (Added by Conv) Anesthesia problems Neg Hx Relation Name [...] on file Legal Sex Male 1:59 AM MINERAL ECONOMIST Gender Identity Not on file Sexual Orientation Not on file Obstetrics History Last Filed Vital Signs Vital Sign Reading Time Taken Comments Blood Pressure 139/78 04/12/2025 1:42 PM CDT Pulse 97 04/12/2025 1:42 PM CDT Temperature 37.2 C (98.9 F) 04/12/2025 1:42 PM CDT Respiratory Rate 18 12/12/2024 2:18 PM MINERAL ECONOMIST Oxygen Saturation 100% 04/12/2025 1:42 PM CDT Inhaled Oxygen Concentration - - Weight 92.3 kg (203 lb 8 oz) 04/12/2025 1:42 PM CDT Height 177.8 cm (5' 10) 04/12/2025 1:42 PM CDT Body Mass Index 29.2 04/12/2025 1:42 PM CDT Plan of Treatment Health Maintenance Due Date Last Done Comments Depression Screening 1942 DTaP/Tdap/Td Vaccine (1 - Tdap) 1953 Hepatitis B Screening 01/03/1960 Zoster Vaccine (1 of 2) 01/03/1992 Well Visit 65+ 2007 Pneumococcal vaccine 65+ (2 of 2 - PPSV23, PCV20, or PCV21) 08/28/2019 07/03/2019 Fall Risk Assessment 10/02/2024 10/02/2023 Influenza Vaccine (#1) 2025 6, 09/06/2016, 08/10/2012 Medical Devices Implanted Type Area Medical Record Technician Device Identifier Shelf Expiration Date Model / Serial / Lot [employer] Vascade Mvp 6-12fr Venous Closure [id number] - [id number] - [id number] Implanted:Qty: 1 on 10/01/2023 by Michael Britt MD at [facility] Collagen Right: Femoral Vein [employer] 06/03/2025 800-612C- [id number] / [id number] / [id number] [employer] Vascade Mvp 6-12fr Venous Closure [id number] - [id number] - [id number] Implanted:Qty: 1 on 10/01/2023 by Michael Britt MD at [facility] Collagen Right: Femoral Vein [employer] 06/03/2025 800-612C- 10U / [id number] / [id number] [employer] Vascade Mvp 6-12fr Venous Closure [id number] - [id number] - [id number] Implanted:Qty: 1 on 10/01/2023 by Michael Britt MD at [facility] Collagen Left: Femoral Vein [employer] 06/03/2025 800-612C- [id number] / [id number] 24A / [id number] [id number] [employer] Device Closure Vascade Od5 Fr Femoral Artery [id number] - [id number] - [id number] Implanted:Qty: 1 on 10/01/2023 by Michael Britt MD at [facility] Collagen Left: Femoral Vein [employer] 06/17/2025 [id number] -[id number] / [id number] / [id number] Screw Screw Knee Description:Left knee replac ement Insurance [facility] MDCR HMO REF [facility] Address: [address] [address] [place] [address] UHC MEDICARE ADVANTAGE [facility] Address: [address] [address] [place] [address] [facility] MEDICARE AD[facility] Address: [address] [address] [place] [address] Advance Directives For more information, please contact: [phone] * Full Code (Latest Code Status on File) Date Activated Date Inactivated Comments 10/01/2023 3:16 PM 10/02/2023 5:36 PM * Full Code Date Activated Date Inactivated Comments 05/24/2023 2:07 PM 05/25/2023 5:40 PM * Full Code Date Activated Date Inactivated Comments 11/26/2022 5:32 PM 11/27/2022 4:10 PM Care Teams Underwriting Clerks Supervisor Relationship Specialty Start Date End Date Luke Duarte MD [address] [place] [address] PCP - General Internal Medicine 11/17/19
--- OUTSIDE RECORDS SUMMARY | 2025-06-29 16:05 | XMS_ITS | Encounter Summary ---
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 Gender Identity Not on file Sexual Orientation Not on file documented as of this encounter Plan of Treatment Not on file documented as of this encounter Procedures Procedure Name Priority Date/Time Associated Diagnosis Comments CARDIOLOGY DOCUMENT SCAN 03/23/2025 documented in this encounter Results * Cardiology Document Scan (03/23/2025) Anatomical Region Laterality Modality Other us Provider Scanning CV CARDIAC SERVICES PROCEDURES Final Result documented in this encounter Visit Diagnoses Not on filedocumented in this encounter Care Teams Design Cell Engineer Relationship Specialty Start Date End Date Luke Duarte MD [address] [facility] [place] [address] PCP - General Internal Medicine 11/17/19 documented as of this encounter
--- OUTSIDE RECORDS SUMMARY | 2025-06-29 16:05 | XMS_ITS | Encounter Summary ---
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
== END 2025-06-29 15:36 | disposition home or self-care (01) ==
LOC: ANHIMG 15:40
PROVIDERS: PCP Internal Medicine; Visit Provider Internal Medicine
DX: R05.9 Cough, unspecified (principal)
CPT/HCPCS: 71046

== ENCOUNTER 2025-10-03 09:44 | Outpatient (CLI) | payer MEDICARE, SELFPAY ==
--- NOTE | 2025-10-03 10:00 | NEURO_ITS ---
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 ? # Severe right Carpal Tunnel Syndrome with minimal dispersed responses. ? # Moderate left Carpal Tunnel Syndrome. ? 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 ? # Needle/ EMG exam abnormal. Nerve Conduction Studies ?Stim Site NR Peak (ms) P-T Amp (?V) Site1 Site2 Delta-P (ms) Dist (cm) Vj (m/s) Left Median Anti Sensory (2-3nd Digit) Wrist ? 4.9 7.6 Wrist 2-3nd Digit 4.9 14.0 29 Wrist ? 4.4 6.7 Wrist 2-3nd Digit 4.9 14.0 29 Right Median Anti Sensory (2-3nd Digit)??? NO RESPONSE Wrist NR Wrist 2-3nd Digit 14.0 Wrist NR Wrist 2-3nd Digit 14.0 Left Radial Anti Sensory (Base 1st Digit) Wrist ? 2.7 8.4 Wrist Base 1st Digit 2.7 0.0 Right Radial Anti Sensory (Base 1st Digit) Wrist ? 2.9 9.9 Wrist Base 1st Digit 2.9 0.0 Left Ulnar Anti Sensory (5th Digit) Wrist ? 2.7 20.4 Wrist 5th Digit 2.7 14.0 52 Right Ulnar Anti Sensory (5th Digit) Wrist ? 3.6 7.6 Wrist 5th Digit 3.6 14.0 39 ?Stim Site NR Onset (ms) O-P Amp (mV) Site1 Site2 Delta-0 (ms) Dist (cm) Vj (m/s) Left Median Motor (Abd Poll Brev) Wrist ? 4.8 3.0 Elbow Wrist 5.6 26.0 46 Elbow ? 10.4 3.7 Right Median Motor (Abd Poll Brev)??? NO RESPONSE Wrist NR Elbow Wrist 26.0 Elbow NR Left Ulnar Motor (Abd Dig Minimi) Wrist ? 2.3 3.9 A Elbow Wrist 7.2 32.0 44 A Elbow ? 9.5 4.3 B Elbow Wrist 5.2 25.0 48 B Elbow ? 7.5 4.9 Right Ulnar Motor (Abd Dig Minimi) Wrist ? 2.5 8.5 A Elbow Wrist 6.2 31.0 50 A Elbow ? 8.7 7.6 B Elbow Wrist 4.1 21.0 51 B Elbow ? 6.6 7.9 F Wave Studies ?NR F-Lat (ms) L-R F-Lat (ms) Left Median (Mrkrs) (Abd Poll Brev) ? 32.63 Right Median (Mrkrs) (Abd Poll Brev) NR Left Ulnar (Mrkrs) (Abd Dig Min) ? 26.26 3.61 Right Ulnar (Mrkrs) (Abd Dig Min) ? 29.86 3.61 Electromyography ?Side Muscle Nerve Root Ins Act Fibs Amp Dur Recrt Comment Right 1stDorInt Ulnar C8-T1 Nml Nml Nml Nml Nml Right Ext Indicis Radial (Post Int) C7-8 Nml Nml Nml Nml Nml Right Ext Digitorum Radial (Post Int) C7-8 Nml Nml Nml Nml Nml Right BrachioRad Radial C5-6 Nml Nml Nml Nml Nml Right PronatorTeres Median C6-7 Nml Nml Nml Nml Nml Right Abd Poll Brev Median C8-T1 Nml Nml Nml Nml Nml Right ABD Dig Min Ulnar C8-T1 Nml Nml Nml Nml Nml Right FlexPolLong Median (Ant Int) C7-8 Nml Nml Nml Nml Nml Right Abd Poll Long Radial (Post Int) C7-8 Nml Nml Nml Nml Nml Left 1stDorInt Ulnar C8-T1 Nml Nml Nml Nml Nml Left Ext Indicis Radial (Post Int) C7-8 Nml Nml Nml Nml Nml Left Ext Digitorum Radial (Post Int) C7-8 Nml Nml Nml Nml Nml Left BrachioRad Radial C5-6 Nml Nml Nml Nml Nml Left PronatorTeres Median C6-7 Nml Nml Nml Nml Nml Left Abd Poll Brev Median C8-T1 Nml Nml Nml Nml Nml Left ABD Dig Min Ulnar C8-T1 Nml Nml Nml Nml Nml Left FlexPolLong Median (Ant Int) C7-8 Nml Nml Nml Nml Nml Left Abd Poll Long Radial (Post Int) C7-8 Nml Nml Nml Nml Nml
--- OUTSIDE RECORDS SUMMARY | 2025-10-03 11:00 | XMS_ITS | Encounter Summary ---
Author Organization [facility] Address [address] [place] [address] Care Team Providers Care Agile Scrum Coach Name Role Phone Susan Carmen MD Unavailable [phone] Luke Duarte MD Primary Care Provider [phone] Fly Crum MD Unavailable Kashmir Lopez MD Primary Care Provider [phone] Luke Duarte MD Primary Care Provider [phone] Nando Adler MD Unavailable [phone] Encounter Details Date Type Department Care Team (Late st Contact Info) Description 04/07/2016 Abstract [facility] AT [address] [address] Gayatri Polanco MA Social History [...] Care Team (Late st Contact Info) Description 02/07/2026 12:15 PM CDT Office Visit [facility] [address] [place] [address] Susan Carmen [facility] [address] [facility] [address] [place] [address] documented as of this encounter Procedures Procedure [...] (08/12/2016) PROTIME 30.5 INR 2.9 08/12/2016 Result [facility] Doc [facility] Abstract LAB-OUTSIDE/ABSTRACTED Final Result * PROTIME (OUTSIDE LAB) (06/29/2016) PROTIME 11.4 INR 1.1 06/29/2016 Result [facility] Susan Carmen MD LAB-OUTSIDE/ABSTRACTED Final Re sult * BASIC METABOLIC PANEL (04/21/2016) BUN 23 CREATININE S/P/B 1.07 EGFR AFR. AMER. 79 EGFR NON-AFR. AMER. 68 04/21/2016 Result [facility] Susan Carmen MD LABORATORY Final Result * CBC (OUTSIDE LAB) (04/21/2016) HCT 39.4 04/21/2016 Result [facility] Susan Carmen MD LAB-OUTSIDE/ABSTRACTED Final Re sult * PROTIME (OUTSIDE LAB) (04/21/2016) PROTIME 14.2 INR 1.4 04/21/2016 Result [facility] Susan Carmen MD LAB-OUTSIDE/ABSTRACTED Final Re sult * PROTIME (OUTSIDE LAB) (04/07/2016) PROTIME 26.1 INR 2.5 04/07/2016 Result [facility] Susan Carmen MD LAB-OUTSIDE/ABSTRACTED Final Re sult documented in this encounter Visit Diagnoses Not on filedocumented in this encounter Additional Health Concerns Infection Onset Date Last Indicated Resolved Time COVID-19 Rule Out 02/26/2020 02/26/2020 02/28/2020 8:44 AM CDT documented as of this encounter Care Teams Agile Scrum Coach Relationship Specialty Start Date End Date Luke Duarte MD Three [facility]. [facility] [address] [place] [address] PCP - General INTERNAL MEDICINE 03/18/16 10/17/18 Kashmir Lopez MD [address] [place] [address] PCP - General INTERNAL MEDICINE 10/18/18 10/17/19 Luke Duarte MD [address] [place] [address] PCP - General INTERNAL MEDICINE 10/18/19 Susan Carmen MD Three [facility]. [facility] [address] [place] [address] Rule Bench Carpenter CARDIOVASCULAR DISEASE 04/07/16 Fly Crum MD Three [facility]. [facility] [address] [place] [address] EP Bench Carpenter Electrophysiology 07/10/16 Nando Adler MD [address] [place] [address] CARDIAC ELECTROPHYSIOLOGY 09/17/22 documented as of this encounter
--- OUTSIDE RECORDS SUMMARY | 2025-10-03 11:00 | XMS_ITS | Encounter Summary ---
Author Organization [facility] Address [facility] [place] [address] Care Team Providers Care Superintendent Seed Mill Name Role Phone Susan Carmen MD Unavailable [phone] Fly Crum MD Unavailable Luke Duarte MD Primary Care Provider [phone] Nando Adler MD Unavailable [phone] Encounter Details Date Type Department Care Team (Late st Contact Info) Description 06/03/2020 Abstract [facility] at [address] [address] Gayatri Polanco MA Social History Tobacco Use [...] Description 02/07/2026 12:15 PM CDT Office Visit [facility] [address] [facility] [place], [place] [id number] Susan Carmen MD [facility]. [address] [place], [place] [id number] documented as of this encounter Procedures Procedure [...] - Final * PROTIME (OUTSIDE LAB) (11/10/2021) Pathologist [facility] PROTIME 21.7 INR 2.1 11/10/2021 us Doc [facility] Abstract LAB-OUTSIDE/ABSTRACTED Final Result * THYROID STIM HORMONE, TSH (08/22/2021) Pathologist [facility] TSH 1.680 08/22/2021 us Doc [facility] Abstract LABORATORY Final Result * LIPID PANEL (08/22/2021) Pathologist [facility] CHOLESTEROL 122 HDL 47 TRIGLYCERIDES 61 LDL (CALCULATED) 62 08/22/2021 us Doc [facility] Abstract LABORATORY Final Result * COMPREHENSIVE METABOLIC PANEL (08/22/2021) Pathologist [facility] SODIUM S/P/B 141 POTASSIUM S/P/B 4.3 CO2 [...] Result * THYROID STIM HORMONE, TSH (05/31/2020) [facility] TSH 4.100 05/31/2020 us Doc [facility] Abstract LABORATORY Final Result * LIPID PANEL (05/31/2020) [facility] CHOLESTEROL 143 HDL 57 TRIGLYCERIDES 79 LDL (CALCULATED) 70 05/31/2020 us Doc [facility] Abstract LABORATORY Final Result * COMPREHENSIVE METABOLIC PANEL (05/31/2020) [facility] SODIUM S/P/B 142 POTASSIUM S/P/B 4.5 [...] on filedocumented in this encounter Care Teams Superintendent Seed Mill Relationship Specialty Start Date End Date Luke Duarte MD [address] [address] PCP - General INTERNAL MEDICINE 10/18/19 Susan Carmen MD [facility] [address] [place] [address] [place] [employer] Subassembly Repairer CARDIOVASCULAR DISEASE 04/07/16 Fly Crum MD Three [facility]. [address] [address] EP Motorcycle Subassembly Repairer Electrophysiology 07/10/16 Nando Adler MD [address] [facility] [address] [place] [address] CARDIAC ELECTROPHYSIOLOGY 09/17/22 documented as of this encounter
--- OUTSIDE RECORDS SUMMARY | 2025-10-03 11:00 | XMS_ITS | Clinical Summary ---
Author Organization [facility] Address [address] [place] [address] Care Team Providers Care Territory Sales Professional Name Role Phone Luke Duarte MD Primary Care Provider [phone] Allergies No known active allergies Medications simvastatin [...] 1 tablet (125 mcg total) by mouth day spa manager before breakfast 10/25/19 21 Active liothyronine (CYTOMEL) [...] bedtime 30 tablet 11 05/18/20 23 Active cyclobenzapri ne (FLEXERIL) 10 mg tabletIndicat ions:Muscle Spasm Take 1 tablet (10 mg total) by mouth 3 (three) times a day as needed for muscle spasms for muscle spasms 09/16/20 23 Active warfarin (COUMADIN) 2 mg tablet Take 1 tablet (2 mg total) by mouth 5 (five) times a week 12.5mg MWFSS; 10mg TT Active pantoprazole DR (PROTONIX) 40 mg EC tabletIndicat ions:Treatmen t of Non-Bleeding Gastric Disorder Take 1 tablet (40 mg total) by mouth daily 30 tablet 10/03/20 23 Active lisinopriL (PRINIVIL,ZES TRIL) 10 mg tablet Take 1 tablet (10 mg total) by mouth daily 10/25/19 24 Active mirtazapine (REMERON) 30 mg tablet Take 1 tablet by mouth nightly 30 tablet 11/19/19 24 Active atorvastatin (LIPITOR) 20 mg tablet Take 1 tablet (20 mg total) by mouth daily 10/28/19 24 Active cholecalcifer ol (VITAMIN D-3) 50,000 unit capsule 10/28/19 24 [...] nostril daily 16 g 6 12/12/19 25 Active celecoxib (CeleBREX) 100 mg capsule Take 1 capsule (100 mg total) by mouth 2 (two) times a day 03/20/20 25 Active fluticasone-u meclidin-belkys nter (TRELEGY ELLIPTA) 200-62.5-25 mcg inhaler daily 02/03/20 23 Active traMADoL 100 mg tablet Take 1 tablet by mouth 4 (four) times a day as needed 10/31/20 25 Active dofetilide (TIKOSYN) 500 mcg capsule Take 1 capsule (500 mcg total) by mouth 2 (two) times a day 60 capsule 5 09/26/20 Active budesonide-fo rmoteroL (SYMBICORT) 80-4.5 mcg/actuation inhaler Inhale 2 puffs 2 (two) times a day Rinse mouth with water after use. Do not swallow. 1 each 3 12/12/19 25 025 Discontinued(No longer taking - Do not display on AVS) dofetilide (TIKOSYN) 500 mcg capsule TAKE 1 CAPSULE BY MOUTH TWICE DAILY . PLEASE CALL [phone] TO RESCHEDULE MISSED APPOINTMENT FOR FUTURE REFILLS 60 capsule 5 03/21/20 025 Discontinued Active Problems Problem Noted Date Diagnosed Date Essential hypertension 09/10/2025 Atrial tachycardia 02/28/2025 Mild cognitive impairment 04/11/2024 Assessment & Plan (04/12/2025 2:12 PM CDT): Overall, stable cognitive testing. Continue following with sleep medicine. We did have a discussion about how hydroxyzine can have negative effects to memory. Information was provided on the [employer]. Follow-up in 6 months or sooner if need be. Assessment & Plan (04/11/2024 2:52 PM CDT): Referral to audiology for hearing evaluation. Continue following up with sleep medicine. Asked CS and patient to bring updated medication list so we could review his medications. Follow-up with Dr. Carter (10/2024). SOB (shortness of breath) 12/14/2023 Anxiety 10/01/2023 Assessment & Plan (10/01/2023 5:33 PM CONVERSION DEVELOPER): -Continue home remeron, buspar, atarax Atrial flutter [...] recurrence Assessment & Plan (10/28/2023 11:38 AM CONVERSION DEVELOPER): Persistent atrial flutter treated by PVI 2020 [...] recurrence Assessment & Plan (10/02/2023 10:54 AM CONVERSION DEVELOPER): Patient presents s/p ablation for medically refractory flutter s/p prior ablations and DCCV - Bedrest per EP -Telemetry overnight - Continue/resume home warfarin: 10mg /, 12.5mg rest - Continue home dofetilide, metoprolol - PPI x30 days Cerebrovascular accident (CVA), unspecified mech anism 05/24/2023 Hypothyroid 11/26/2022 Assessment & Plan (10/01/2023 5:34 PM CONVERSION DEVELOPER): -Continue home synthroid, cytomel Assessment & Plan (11/26/2022 4:20 PM CONVERSION DEVELOPER): -cont home synthroid, cytomel Persistent atrial fibrillation 02/14/2021 Overview (02/14/2021): Added automatically from request for surgery [id number] Assessment & Plan (11/27/2022 3:31 PM CONVERSION DEVELOPER): S/p A flutter ablation via pulmonary vein [...] 05/30/2020 Assessment & Plan (10/01/2023 5:33 PM CONVERSION DEVELOPER): -Continue home lunesta Assessment & Plan (11/26/2022 4:19 PM CONVERSION DEVELOPER): -home mirtazapine, Lunesta Complex sleep apnea syndrome 11/17/2019 Assessment & Plan (10/01/2023 5:32 PM CONVERSION DEVELOPER): -Nocturnal nppv, home unit Assessment & Plan (11/26/2022 4:14 PM CONVERSION DEVELOPER): Brought home CPAP 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 Assessment & Plan (06/12/2019 1:48 PM CDT): I have recommended voice therapy here at the [facility] in order [...] BID Assessment & Plan (10/28/2023 11:35 AM CONVERSION DEVELOPER): Renal function stable, eGFR 64 QT interval stable, QTc 459 ms Continue dofetilide 500 mcg BID Asthma Assessment & Plan (10/01/2023 5:32 PM CONVERSION DEVELOPER): F/b OSH pulm -Breo ellipta for home inhaler Resolved Problems Problem Noted Date Diagnosed Date Resolved Date Atrial flutter 11/26/2022 11/26/2022 Encounters Date Type Department Care Team Description 09/25/2025 4:11 PM CONVERSION DEVELOPER - 09/25/2025 11:59 PM CONVERSION DEVELOPER Hospital Encounter [facility] Cardiac Diagnostic Lab [address] [place] [phone] Atypical atrial flutter (HCC) Discharge Disposition: Discharge to home or self care 09/25/2025 Telephone [facility] [address] [place] [phone] Nando Adler MD PhD 09/24/2025 Orders Only [facility] [address] [place] [phone] Nando Adler MD PhD Visit for monitoring Tikosyn therapy (Primary Dx) 09/10/2025 3:45 PM CONVERSION DEVELOPER Office Visit [facility] [address] [place] [phone] Nando Adler MD PhD Paroxysmal atrial fibrillation (HCC) (Primary Dx); Atypical atrial flutter (HCC); Essential hypertension; Atrial tachycardia 09/10/2025 Results Follow-Up [facility] [address] [place] [phone] Nando Adler MD PhD ECG 12 lead from Last 3 Months Surgical History Surgery [...] Family history of hypertension - (Added by DUSTIN Conv) Alzheimer's disease Mother Family h istory of Alzheimer's disease - onset age 70-75 in his mother (Added by DUSTIN Conv) Cancer Mother Family history of malignant neoplasm - (Added by DUSTIN Conv) Anesthesia problems Neg Hx Relation Name [...] on file Legal Sex Male 1:59 AM CONVERSION DEVELOPER Gender Identity Not on file Sexual Orientation Not on file Last Filed Vital Signs Vital Sign Reading Time Taken Comments Blood Pressure 132/80 09/10/2025 3:41 PM CONVERSION DEVELOPER Pulse 87 09/10/2025 3:41 PM CONVERSION DEVELOPER Temperature 37.2 C (98.9 F) 04/12/2025 1:42 PM CDT Respiratory Rate 18 12/12/2024 2:18 PM CONVERSION DEVELOPER Oxygen Saturation 92% 09/10/2025 3:41 PM CONVERSION DEVELOPER Inhaled Oxygen Concentration - - Weight 84.6 kg (186 lb 6.4 oz) 09/10/2025 3:41 P M CONVERSION DEVELOPER Height 177.8 cm (5' 10) 09/10/2025 3:41 PM CONVERSION DEVELOPER Body Mass Index 26.75 09/10/2025 3:41 PM CONVERSION DEVELOPER Plan of Treatment Health Maintenance Due Date Last Done Comments Depression Screening 1940 DTaP/Tdap/Td Vaccine (1 - Tdap) 1953 Hepatitis B Screening 01/03/1960 Well Visit 65+ 2007 Pneumococcal vaccine 65+ (2 of 2 - PPSV23, PCV20, or PCV21) 08/28/2019 07/03/2019 Zoster Vaccine (2 of 3) 10/20/2022 08/25/2022 Fall Risk Assessment 10/02/2024 10/02/2023 Influenza Vaccine (#1) 2025 , 09/03/2017, 09/06/2016, Additional history exists Medical Devices Implanted Type Area Solar Consultant Device Identifier Shelf Expiration Date Model / Serial / Lot [employer] Vascade Mvp 6-12fr Venous Closure [id number] - [id number] - [id number] Implanted:Qty: 1 on 10/01/2023 by Michael Britt MD at [facility] Collagen Right: Femoral Vein [employer] 06/03/2025 800-612C- 10U / [id number] / [id number] [employer] Vascade Mvp 6-12fr Venous Closure [id number] - [id number] - [id number] Implanted:Qty: 1 on 10/01/2023 by Michael Britt MD at [facility] Collagen Right: Femoral Vein [employer] 06/03/2025 800-612C- 10U / [id number] / [id number] [id number] [employer] Vascade Mvp 6-12fr Venous Closure [id number] - [id number] - [id number] Implanted:Qty: 1 on 10/01/2023 by Michael Britt MD at [facility] Collagen Left: Femoral Vein [employer] 06/03/2025 800-612C- 10U / [id number] 24A / [id number] [id number] [employer] Device Closure Vascade Od5 Fr Femoral Artery [id number] - [id number] - [id number] Implanted:Qty: 1 on 10/01/2023 by Michael Britt MD at [facility] Collagen Left: Femoral Vein [employer] 06/17/2025 [id number] -[id number] / [id number] / [id number] Screw Screw Knee Description:Left knee replac ement Procedures Procedure Name Priority Date/Time Associated Diagnosis Comments TRANSTHORACIC ECHO (TTE) COMPLETE W DOPPLER/CF W CONTRAST Routine 09/25/2025 5:21 PM CONVERSION DEVELOPER Atypical atrial flutter (HCC) BASIC METABOLIC PANEL Routine 09/24/2025 1:11 PM CONVERSION DEVELOPER Visit for monitoring Tikosyn therapy ECG 12-LEAD Routine 09/10/2025 3:49 PM CONVERSION DEVELOPER Paroxysmal atrial fibrillation (HCC) Atypical atrial flutter (HCC) Essential hypertension Atrial tachycardia from Last 3 Months Results * TRANSTHORACIC ECHO (TTE) COMPLETE W DOPPLER/CF W CONTRAST (09/25/2025 5:21 PM CONVERSION DEVELOPER) EF Mod BP 61 % CONS SCIMAGE Anatomical Region Laterality Modality Ultrasound 09/25/2025 4:19 PM CONVERSION DEVELOPER Narrative 09/27/2025 8:54 AM CONVERSION DEVELOPER [facility] Cardiac [place] [address] [place] [address] Transthoracic Echocardiographic Report Patient Name: ROLANDO HULL J : 1940 (85y 8m) Sex: M Study Date: 09/25/2025 04:19:55 PM Ht(Inch): 70 Wt(Lb): 186.07 BSA: 2.02 Bank Teller Machine Mechanic: Cher Azul RDCS Location: [facility] Order Provider: NANDO ADLER Heart Rate: 97 BMI: 26.7 BP: 138 / 91 Ref Provider: NANDO ADLER PROCEDURES: Echocardiographic Report: Transthoracic complete echo with strain imaging and contrast, 2D, spectral and tissue Doppler, color flow Doppler, M-mode. Contrast: Contrast Enhancement was Employed: After initial imaging due to sub- optimal quality related to co-morbidity defined by patient's body habitus and due to suboptimal image quality with inadequate visualization of at least 2 of 16 LV wall segments in any view after initial imaging. Perflutren contrast was administered using the volume necessary to obtain adequate images. 0.8 ml Optison Administered, (2.2 ml wasted). INDICATIONS: I48.4 Atypical atrial flutter. CONCLUSIONS: 1. Normal left ventricular cavity size based on volume index. Concentric LV remodeling. Normal left ventricular systolic function. The Ejection Fraction (Esteban's) is measured at 61 %. The average global longitudinal strain is borderline. 2. Normal right ventricular size. Normal right ventricular systolic function. 3. Moderately dilated left atrium. 4. Mild aortic valve regurgitation. 5. Mild tricuspid regurgitation. 6. Moderate pulmonic regurgitation. 7. Mild aortic root dilation at sinuses of Valsalva (3.8cm), but normal when indexed. Dilation of the ascending aorta (3.9cm), normal when indexed. COMPARISONS: No change compared to prior study on: IRLANDA 10/06/2023. ATTESTATION: I have personally reviewed and interpreted this study without fellow or resident. DISCLAIMER: The study images and the final report will be retained in the patient chart by the Echo Laboratory for the legally required time period. This chart constitutes the legal record of any testing performed. FINDINGS: Left Ventricle: Normal left ventricular cavity size based on volume index. Concentric LV remodeling. Normal left ventricular systolic function. The Ejection Fraction (Esteban's) is measured at 61 %. The average global longitudinal strain is borderline. The LV global strain is: -16.3 %. Right Ventricle: Normal right ventricular size. Normal right ventricular systolic function. Left Atrium: Moderately dilated left atrium. Right Atrium: The right atrium is normal in size. Mitral Valve: Normal mitral valve structure. Trace mitral regurgitation. No stenosis present. Aortic Valve: Mildly thickened aortic valve leaflets. Mildly calcified aortic valve leaflets. Mild aortic valve regurgitation. The mean transaortic gradient is 1 mmHg. The aortic valve area by the continuity equation (using VTI) is 3.2 cm2. Aortic valve dimensionless index is 0.83. Tricuspid Valve: Mild tricuspid regurgitation. Pulmonic Valve: Normal pulmonic valve structure. Moderate pulmonic regurgitation. No pulmonic valve stenosis present. Pericardium: Normal pericardium without pericardial effusion. Aorta: Mild aortic root dilation at sinuses of Valsalva (3.8cm), but normal when indexed. Dilation of the ascending aorta (3.9cm), normal when indexed. IVC: IVC is normal in size. The IVC was <2.1 cm and collapsibility >50%. (est. RA pressure 0-5 mmHg). PASP: Normal estimated pulmonary artery systolic pressure. Rhythm: The rhythm during the study was suspected to be atrial fibrillation (no A waves noted on doppler). MEASUREMENTS: 2D/MM Value Range Doppler Value Range LVIDd 2D 4.6 cm [ 4.2 - 5.8 ] AV Peak Vj 0.8 m/s [ 1.0 - 1.7 ] LVIDs 2D 3.3 cm [ 2.5 - 4.0 ] AV Peak PG 3 mmHg IVSd 2D 1.2 cm [ 0.6 - 1.0 ] AV Mean PG 1 mmHg LVPWd 2D 1.2 cm [ 0.6 - 1.0 ] AV VTI 12 cm LV Thickness Ratio 1.0 LVOT Peak Vj 0.6 m/s [ 0.7 - 1.1 ] LV FS 2D 27.55 % [ 25.00 - 43.00 ] LVOT Peak PG 1 mmHg LV Mass 2D 208.11 g LVOT Mean PG 1 mmHg LV Mass Index 2D 102.81 g/m2 LVOT VTI 10 cm RWT 0.52 LVOT Diam 2.2 cm EDV Mod BP 110 ml [ 62 - 150 ] CLARE VTI 3.2 cm2 LV EDV Index 54 ml/m2 LVOT/AV VTI 0.83 - Dimensionless index (DVI) ESV Mod BP 43 ml [ 21 - 61 ] MV E Peak Vj 0.67 m/s [ 0.60 - 1.30 ] EF Mod BP 61 % [ 52 - 72 ] MV Decel Time 135 msec [ 104 - 258 ] LV GLS -16.3 % [ -25.0 - -18.0 ] Lat E` Vj 6.6 cm/sec [ 10.0 - 25.0 ] LA Length 4C 6.4 cm RV S` 14.6 cm/sec LA Length 2C 6.0 cm TR Peak Vj 2.6 m/s [ 1.0 - 2.8 ] LA Volume BP 96 ml TR Peak PG 27 mmHg LA Volume Index 47 ml/m2 [ 16 - 34 ] PV Peak Vj 0.7 m/s [ 0.4 - 0.8 ] RV Base Dimen 2D 3.3 cm [ 2.5 - 4.2 ] PV Peak PG 2 mmHg RV Mid Dimen 2D 2.0 cm PI Peak Vj 1.2 m/s RV ED Area 13 cm2 [ 10 - 24 ] PI ED Vj 98.6 m/sec RV ES Area 7 cm2 [ 3 - 15 ] PI Peak PG 6 mmHg RV FAC 44 % [ 35 - 63 ] PI PHT 201 sec TAPSE 2.4 cm [ 1.7 - 5.0 ] RA Volume 31 ml RA Volume Index 15 ml/m2 IVC Diam 1.5 cm IVC Collapse 80.6 % AoR Diam 2D 3.8 cm [ 3.1 - 3.7 ] Ao Root Index 1.9 cm/m2 [ 1.0 - 2.0 ] Asc Ao Diam 2D 3.9 cm Asc Ao Index 1.9 cm/m2 Electronically Signed By: Donn Mitchell MD 09/27/2025 8:53:18 AM CONVERSION DEVELOPER Procedure Note Donn Mitchell MD - 09/27/2025 [facility] Cardiac [place] [address] [place] [address] Transthoracic Echocardiographic Report Patient Name: ROLANDO HULL J : 1940 (85y 8m) Sex: M Study Date: 09/25/2025 04:19:55 PM Ht(Inch): 70 Wt(Lb): 186.07 BSA: 2.02 Bank Teller Machine Mechanic: Cher Azul RDCS Location: [facility] Order Provider:NANDO ADLER Heart Rate: 97 BMI: 26.7 BP: 138 / 91 Ref Provider: NANDO ADLER PROCEDURES: Echocardiographic Report: Transthoracic complete echo with strain imagingand contrast, 2D, spectral and tissue Doppler, color flow Doppler, M-mode. Contrast: Contrast Enhancement was Employed: After initial imaging due tosub- optimal quality related to co-morbidity defined by patient's body habitus and dueto suboptimal image quality with inadequate visualization of at least 2 of 16 LV wallsegments in any view after initial imaging. Perflutren contrast was administered using thevolume necessary to obtain adequate images. 0.8 ml Optison Administered, (2.2 mlwasted). INDICATIONS: I48.4 Atypical atrial flutter. CONCLUSIONS: 1. Normal left ventricular cavity size based on volume index. ConcentricLV remodeling. Normal left ventricular systolic function. The Ejection Fraction(Esteban's) is measured at 61 %. The average global longitudinal strain is borderline. 2. Normal right ventricular size. Normal right ventricular systolicfunction. 3. Moderately dilated left atrium. 4. Mild aortic valve regurgitation. 5. Mild tricuspid regurgitation. 6. Moderate pulmonic regurgitation. 7. Mild aortic root dilation at sinuses of Valsalva (3.8cm), but normalwhen indexed. Dilation of the ascending aorta (3.9cm), normal when indexed. COMPARISONS: No change compared to prior study on: IRLANDA 10/06/2023. ATTESTATION: I have personally reviewed and interpreted this study without fellow orresident. DISCLAIMER: The study images and the final report will be retained in the patientchart by the Echo Laboratory for the legally required time period. This chart constitutesthe legal record of any testing performed. FINDINGS: Left Ventricle: Normal left ventricular cavity size based on volume index.Concentric LV remodeling. Normal left ventricular systolic function. The EjectionFraction (Esteban's) is measured at 61 %. The average global longitudinal strain is borderline.The LV global strain is: -16.3 %. Right Ventricle: Normal right ventricular size. Normal right ventricularsystolic function. Left Atrium: Moderately dilated left atrium. Right Atrium: The right atrium is normal in size. Mitral Valve: Normal mitral valve structure. Trace mitral regurgitation.No stenosis present. Aortic Valve: Mildly thickened aortic valve leaflets. Mildly calcifiedaortic valve leaflets. Mild aortic valve regurgitation. The mean transaortic gradientis 1 mmHg. The aortic valve area by the continuity equation (using VTI) is 3.2 cm2.Aortic valve dimensionless index is 0.83. Tricuspid Valve: Mild tricuspid regurgitation. Pulmonic Valve: Normal pulmonic valve structure. Moderate pulmonicregurgitation. No pulmonic valve stenosis present. Pericardium: Normal pericardium without pericardial effusion. Aorta: Mild aortic root dilation at sinuses of Valsalva (3.8cm), butnormal when indexed. Dilation of the ascending aorta (3.9cm), normal when indexed. IVC: IVC is normal in size. The IVC was <2.1 cm and collapsibility >50%.(est. RA pressure 0-5 mmHg). PASP: Normal estimated pulmonary artery systolic pressure. Rhythm: The rhythm during the study was suspected to be atrialfibrillation (no A waves noted on doppler). MEASUREMENTS: 2D/MM Value Range DopplerValue Range LVIDd 2D 4.6 cm [ 4.2 - 5.8 ] AV Peak Vel0.8 m/s [ 1.0 - 1.7 ] LVIDs 2D 3.3 cm [ 2.5 - 4.0 ] AV Peak PG3 mmHg IVSd 2D 1.2 cm [ 0.6 - 1.0 ] AV Mean PG1 mmHg LVPWd 2D 1.2 cm [ 0.6 - 1.0 ] AV VTI12 cm LV Thickness Ratio 1.0 LVOT Peak Vel0.6 m/s [ 0.7 - 1.1 ] LV FS 2D 27.55 % [ 25.00 - 43.00 ] LVOT Peak PG1 mmHg LV Mass 2D 208.11 g LVOT Mean PG1 mmHg LV Mass Index 2D 102.81 g/m2 LVOT VTI10 cm RWT 0.52 LVOT Diam2.2 cm EDV Mod BP 110 ml [ 62 - 150 ] CLARE VTI3.2 cm2 LV EDV Index 54 ml/m2 LVOT/AV VTI0.83 - Dimensionless index (DVI) ESV Mod BP 43 ml [ 21 - 61 ] MV E Peak Vel0.67 m/s [ 0.60 - 1.30 ] EF Mod BP 61 % [ 52 - 72 ] MV Decel [id number] msec [ 104 - 258 ] LV GLS -16.3 % [ -25.0 - -18.0 ] Lat E` Vel6.6 cm/sec [ 10.0 - 25.0 ] LA Length 4C 6.4 cm RV S`14.6 cm/sec LA Length 2C 6.0 cm TR Peak Vel2.6 m/s [ 1.0 - 2.8 ] LA Volume BP 96 ml TR Peak PG27 mmHg LA Volume Index 47 ml/m2 [ 16 - 34 ] PV Peak Vel0.7 m/s [ 0.4 - 0.8 ] RV Base Dimen 2D 3.3 cm [ 2.5 - 4.2 ] PV Peak PG2 mmHg RV Mid Dimen 2D 2.0 cm PI Peak Vel1.2 m/s RV ED Area 13 cm2 [ 10 - 24 ] PI ED Vel98.6 m/sec RV ES Area 7 cm2 [ 3 - 15 ] PI Peak PG6 mmHg RV FAC 44 % [ 35 - 63 ] PI [id number] sec TAPSE 2.4 cm [ 1.7 - 5.0 ] RA Ttxlgb68 ml RA Volume Index15 ml/m2 IVC Diam1.5 cm IVC Collapse 80.6 % AoR Diam 2D 3.8 cm [ 3.1 - 3.7 ] Ao Root Index 1.9 cm/m2 [ 1.0 - 2.0 ] Asc Ao Diam 2D3.9 cm Asc Ao Index1.9 cm/m2 Electronically Signed By: Donn Mitchell MD 09/27/2025 8:53:18 AM CONVERSION DEVELOPER Nando Adler MD PhD CV ECHO PROCEDURES Fin al Result * Basic metabolic panel (09/24/2025 1:11 PM CONVERSION DEVELOPER) Glucose 72 70 - 99 mg/dL [facility] - 01 BUN 17 8 - 27 mg/dL [facility] - 01 Creatinine, Serum 1.01 0.76 - 1.27 mg/dL [facility] - 01 eGFR 74 >59 mL/min/1.73 [facility] - 01 BUN/creat ratio 17 10 - 24 [facility] - 01 Sodium 139 134 - 144 mmol/L [facility] - 01 Potassium, sr 4.3 3.5 - 5.2 mmol/L [facility] - 01 Chloride 103 96 - 106 mmol/L [facility] - 01 CO2 25 20 - 29 mmol/L [facility] - 01 Calcium 9.0 8.6 - 10.2 mg/dL [facility] - 01 Blood 09/24/2025 1:11 PM CONVERSION DEVELOPER 09/24/2025 Narrative [facility] - 09/25/2025 7:09 AM CONVERSION DEVELOPER [place]formed at: [facility] [place] [address] [employer]: Tank Acuna PhD, Phone: [phone] Nando Adler MD PhD LAB BLOOD ORDERABLES F inal Result [facility] - 01 * ECG 12 lead (09/10/2025 3:49 PM CONVERSION DEVELOPER) Nando Adler MD PhD ECG ORDERABLES Final Result from Last 3 Months Insurance [facility] MDCR HMO REF UHC MEDICARE ADVANTAGE UHC MEDICARE ADVANTAGE Advance Directives For more information, please contact: [phone] * Full Code (Latest Code Status on File) Date Activated Date Inactivated Comments 10/01/2023 3:16 PM 10/02/2023 5:36 PM * Full Code Date Activated Date Inactivated Comments 05/24/2023 2:07 PM 05/25/2023 5:40 PM * Full Code Date Activated Date Inactivated Comments 11/26/2022 5:32 PM 11/27/2022 4:10 PM Care Teams Territory Sales Professional Relationship Specialty Start Date End Date Luke Duarte MD PCP - General Internal Medicine 11/17/19
--- OUTSIDE RECORDS SUMMARY | 2025-10-03 11:00 | XMS_ITS | Encounter Summary ---
Author Organization [facility] Address [address] [place] [address] Care Team Providers Care Water Mangle Tender Name Role Phone Susan Carmen MD Unavailable [phone] Luke Duarte MD Primary Care Provider [phone] lFy Crum MD Unavailable Kashmir Lopez MD Primary Care Provider [phone] Luke Duarte MD Primary Care Provider [phone] Nando Adler MD Unavailable [phone] Encounter Details Date Type Department Care Team (Late st Contact Info) Description 03/23/2016 Abstract [facility] [address] [place] [address] Susan Carmen MD [address] [phone] Social History Tobacco Use Types Packs/Day Years [...] Start Date Job End 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 [address] [place] [address] documented as of this encounter Visit Diagnoses Not on filedocumented in this encounter Additional Health Concerns Infection Onset Date Last Indicated Resolved Time COVID-19 Rule Out 02/26/2020 02/26/2020 02/28/2020 8:44 AM CDT documented as of this encounter Care Teams Water Mangle Tender Relationship Specialty Start Date End Date Luke Duarte MD Three [facility]. [address] [place] [address] PCP - General INTERNAL MEDICINE 03/18/16 10/17/18 Kashmir Lopez MD [address] [place] [address] PCP - General INTERNAL MEDICINE 10/18/18 10/17/19 Luke Duarte MD [address] [place] [address] PCP - General INTERNAL MEDICINE 10/18/19 Susan Carmen MD [facility] [address] [place] [address] [place] [facility] CARDIOVASCULAR DISEASE 04/07/16 Fly Crum MD [facility] [address] [place] [address] EP Block Feeder Electrophysiology 07/10/16 Nando Adler MD [address] [place] [address] CARDIAC ELECTROPHYSIOLOGY 09/17/22 documented as of this encounter
--- OUTSIDE RECORDS SUMMARY | 2025-10-03 11:00 | XMS_ITS | Encounter Summary ---
Author Organization [facility] Address [address] [place] [address] Phone Care Team Providers Care Fact Checker Name Role Phone Kashmir Lopez MD Primary Care Provider [phone] Luke Duarte MD Primary Care Provider [phone] Encounter Details Date Type Department Care Team (Late st Contact Info) Description 08/31/2019 Telephone [facility] Cardiology [address] [facility] 8th [place] [address] [place] [address] Nando Adler MD PhD [address] [facility] [address] [place] [address] Social History Tobacco Use Types Packs/Day Years Used Date Smoking Tobacco: Never Smokeless Tobacco: Never Alcohol Use Standard Drinks/Week Comments No 0 (1 standard drink = 0.6 oz pur e alcohol) Sex and Gender Information Value Date Recorded Sex Assigned at Not on file Legal Sex Male 1:59 AM LACING PRESSER Gender Identity Not on file Sexual Orientation Not on file documented as of this encounter Functional Status * BP Location Answer Date of Assessment Author Right arm 08/31/2019 1:07 PM [place] CNA * BP Location Answer Date of Assessment Author Right arm 08/31/2019 1:07 PM [place] CNA documented as of this encounter Plan of Treatment Not on file documented as of this encounter Visit Diagnoses Not on filedocumented in this encounter Care Teams Fact Checker Relationship Specialty Start Date End Date Kashmir Lopez MD [address] [place] [address] PCP - General Internal Medicine 05/25/19 11/16/19 Luke Duarte MD [address] [place] [address] PCP - General Internal Medicine 11/17/19 documented as of this encounter
--- OUTSIDE RECORDS SUMMARY | 2025-10-03 11:00 | XMS_ITS | Encounter Summary ---
Author Organization [facility] Address [address] [place] [address] Care Team Providers Care Carbonizer Name Role Phone Susan Carmen MD Unavailable [phone] Fly Crum MD Unavailable Luke Duarte MD Primary Care Provider [phone] Nando Adler MD Unavailable [phone] Encounter Details Date Type Department Care Team (Late st Contact Info) Description 02/27/2020 Pre-Procedure Call [facility] Breaker [place] [address] Fly Crum MD [address] [facility] [address] [place] [address] Social History Tobacco Use Types Packs/Day Years [...] Start Date Job End Date 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 [address] [place], [place] [phone] Susan Carmen MD [facility]. [facility] [address] [place], [place] [phone] documented as of this encounter Visit Diagnoses Not on filedocumented in this encounter Additional Health Concerns Infection Onset Date Last Indicated Resolved Time COVID-19 Rule Out 02/26/2020 02/26/2020 02/28/2020 8:44 AM CDT documented as of this encounter Care Teams Carbonizer Relationship Specialty Start Date End Date Luke Duarte MD [address] [facility] [address] [place] [address] PCP - General INTERNAL MEDICINE 10/18/19 Susan Carmen MD [facility]. [address] [place], [place] [phone] [place] Underwriting Clerk CARDIOVASCULAR DISEASE 04/07/16 Fly Crum MD [facility]. [facility] [address] [place], [place] [address] EP Underwriting Clerk Electrophysiology 07/10/16 Nando Adler MD [address] [place] [address] CARDIAC ELECTROPHYSIOLOGY 09/17/22 documented as of this encounter
--- OUTSIDE RECORDS SUMMARY | 2025-10-03 11:00 | XMS_ITS | Encounter Summary ---
Author Organization [facility] Address [address] [place] [address] Care Team Providers Care Core Finisher Name Role Phone Susan Carmen MD Unavailable [phone] Fly Crum MD Unavailable Luke Duarte MD Primary Care Provider [phone] Nando Adler MD Unavailable [phone] Encounter Details Date Type Department Care Team (Late st Contact Info) Description 03/18/2022 Abstract [facility] [address] Gayatri Polanco MA Social History [...] Description 02/07/2026 12:15 PM CDT Office Visit [facility] THREE [facility], [facility] [address] [place], [place] [phone] Susan Carmen MD [facility]. [facility] [address] [place], [place] [id number] documented as of this encounter Procedures Procedure Name Priority Date/Time Associated Diagnosis Comments PROTIME (OUTSIDE LAB) Routine 08/06/2025 PROTIME (OUTSIDE LAB) Routine 02/28/2025 PROTIME (OUTSIDE LAB) Routine 11/17/2024 PROTIME (OUTSIDE [...] this encounter Results * PROTIME (OUTSIDE LAB) (08/06/2025) PROTIME 19.3 INR 1.9 08/06/2025 us Default History Genericprovider LAB-OUTSIDE/ABST RACTED Final Result * PROTIME (OUTSIDE LAB) (02/28/2025) PROTIME 20.3 INR 1.9 02/28/2025 us Default History Genericprovider LAB-OUTSIDE/ABST RACTED Final Result * PROTIME (OUTSIDE LAB) (11/17/2024) PROTIME 22.5 INR 2.2 11/17/2024 us Default History Genericprovider LAB-OUTSIDE/ABST RACTED Final Result * PROTIME (OUTSIDE LAB) (08/21/2024) PROTIME 26.9 INR 2.6 08/21/2024 Default History Genericprovider LAB-OUTSIDE/ABST RACTED Final Result * PROTIME (OUTSIDE LAB) (07/28/2024) PROTIME 31.1 INR 3.1 07/28/2024 Default History Genericprovider LAB-OUTSIDE/ABST RACTED Final Result * PROTIME (OUTSIDE LAB) (06/06/2024) PROTIME 27.3 INR 2.7 06/06/2024 us Default History Genericprovider LAB-OUTSIDE/ABST RACTED Final Result * VITAMIN D, 25 OH (10/21/2023) VITAMIN D 25 HYDROXY S/P/B 26.7 10/21/2023 Default History Genericprovider LABORATORY Final Result * THYROXINE, FREE (FT4) (10/21/2023) Pathologist [facility] FREE T4 1.29 Default History Genericprovider LABORATORY Edited Result - Final * HEMOGLOBIN, GLYCOSYLATED (10/21/2023) Pathologist [facility] HGB A1C 5.7 % Result [facility] History Genericprovider LABORATORY Edited Result - Final * THYROID STIM HORMONE, TSH (10/21/2023) Pathologist [facility] TSH 0.282 Result [facility] History Genericprovider LABORATORY Edited Result - Final * CBC (OUTSIDE LAB) (10/21/2023) Pathologist [facility] WBC 4.5 HGB 13.4 HCT 40.0 PLT 187 10/21/2023 Result [facility] Genericprovider LAB-OUTSIDE/ABST RACTED Final Result * COMPREHENSIVE METABOLIC PANEL (10/21/2023) Pathologist [facility] SODIUM S/P/B 138 POTASSIUM S/P/B 4.4 CO2 23 CHLORIDE S/P/B 104 GLUCOSE 91 mg/dL CALCIUM S/P/B 8.9 BUN 17 CREATININE S/P/B 0.96 0.7 - 1.3 EGFR NON-AFR. AMER. 79 <=90 ALKALINE PHOSPHATASE S/P/B 88 ALT 20 AST 20 BILIRUBIN TOTAL S/P/B 0.4 ALBUMIN S/P/B 3.9 3.5 - 5.0 TOTAL PROTEIN S/P/B 6.3 GLOBULIN 2.4 10/21/2023 Result [facility] Default History Genericprovider LABORATORY Final Result * LIPID PANEL (10/21/2023) Pathologist [facility] CHOLESTEROL 173 HDL 40 TRIGLYCERIDES 199 LDL (CALCULATED) 99 10/21/2023 Result [facility] Genericprovider LABORATORY Final Result * PROTIME (OUTSIDE LAB) (10/21/2023) Pathologist [facility] PROTIME 35.2 INR 3.6 10/21/2023 us Default History Genericprovider LAB-OUTSIDE/ABST RACTED Final Result * PROTIME (OUTSIDE LAB) (01/29/2023) PROTIME 17.7 INR 1.7 01/29/2023 us Default History Genericprovider LAB-OUTSIDE/ABST RACTED Final Result * PROTIME (OUTSIDE LAB) (07/14/2022) PROTIME 36.0 INR 3.7 07/14/2022 us Doc [facility] Abstract LAB-OUTSIDE/ABSTRACTED Final Result [...] on filedocumented in this encounter Care Teams Core Finisher Relationship Specialty Start Date End Date Luke Duarte MD [address] [address] PCP - General INTERNAL MEDICINE 10/18/19 Susan Carmen MD Three [facility]. [address] [address] [place] Tobacco Checkout Clerk CARDIOVASCULAR DISEASE 04/07/16 Fly Crum MD Three [facility]. [address] [id number] EP Tobacco Checkout Clerk Electrophysiology 07/10/16 Nando Adler MD [address] [facility] [address] [place] [address] CARDIAC ELECTROPHYSIOLOGY 09/17/22 documented as of this encounter
--- OUTSIDE RECORDS SUMMARY | 2025-10-03 11:00 | XMS_ITS | Encounter Summary ---
Author Organization [facility] Address [address] [place] [address] Care Team Providers Care Fuel Cell Engineer Name Role Phone Susan Carmen MD Unavailable [phone] Fly Crum MD Unavailable Luke Duarte MD Primary Care Provider [phone] Nando Adler MD Unavailable [phone] Encounter Details Date Type Department Care Team (Late st Contact Info) Description 02/23/2020 Pre-Procedure Call [employer] [place] [address] Fly Crum MD [address] [facility] [address] [place] [address] Social History Tobacco Use Types [...] Start Date Job End Date 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 [address] [place] [address] documented as of this encounter Visit Diagnoses Not on filedocumented in this encounter Additional Health Concerns Infection Onset Date Last Indicated Resolved Time COVID-19 Rule Out 02/26/2020 02/26/2020 02/28/2020 8:44 AM CDT documented as of this encounter Care Teams Fuel Cell Engineer Relationship Specialty Start Date End Date Luke Duarte MD [address] [facility] [address] [place] [phone] PCP - General INTERNAL MEDICINE 10/18/19 Susan Carmen MD Three [facility]. [facility] [address] [place] [address] [place] Icing Maker CARDIOVASCULAR DISEASE 04/07/16 Fly Crum MD Three [facility]. [address] [place], [place] [address] EP Icing Maker Electrophysiology 07/10/16 Nando Adler MD [address] [place] [address] CARDIAC ELECTROPHYSIOLOGY 09/17/22 documented as of this encounter
--- OUTSIDE RECORDS SUMMARY | 2025-10-03 11:00 | XMS_ITS | Encounter Summary ---
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
--- OUTSIDE RECORDS SUMMARY | 2025-10-03 11:00 | XMS_ITS | Clinical Summary ---
Author Organization [facility] Address [address] [place] [address] Care Team Providers Care Street Sweeper Name Role Phone Susan Carmen MD Unavailable [phone] Fly Crum MD Unavailable Luke Duarte MD Primary Care Provider [phone] Nando Adler MD Unavailable [phone] Allergies No known active allergies Medications Saw [place] 450 MG Cap Take 1 capsule by mouth 2 (two) times daily. 6 Active CPAP MACHINE nightly at bedtime. 8 Active busPIRone 10 MG tablet Take 1 tablet (10 mg total) by mouth daily. 8 Active eszopiclone 3 MG Tab Take 1 mg by mouth nightly at bedtime. 8 Active vitamin B-12 (CYANOCOBALAMIN ) 1000 mcg tablet Take 1,000 mcg by mouth daily. Active GLUCOSAMINE-CHO NDROITIN OR Take by mouth daily. Active liothyronine 5 MCG Tab Take 5 mcg by mouth daily. 0 Active dofetilide (TIKOSYN) 500 MCG Cap capsule Take 500 mcg by mouth 2 (two) times daily. 3 Active mirtazapine (REMERON) 30 MG tablet Take 30 mg by mouth nightly. 3 Active cyclobenzaprine (FLEXERIL) 10 MG tablet Take 1 tablet (10 mg total) by mouth 3 (three) times daily as needed for Muscle Spasms. 3 Active lisinopril (PRINIVIL) 10 MG tablet Take 1 tablet (10 mg total) by mouth daily. 3 Active tamsulosin (FLOMAX) 0.4 MG Cap Take 2 capsules (0.8 mg total) by mouth daily. 3 Active atorvastatin (LIPITOR) 20 MG tablet Take 1 tablet (20 mg total) by mouth nightly at bedtime. 4 Active CHOLECALCIFEROL 1.25 mg capsule Take 1 capsule (1.25 mg total) by mouth once a week. 4 Active fluticasone propionate (FLONASE) 50 MCG/ACT nasal spray 2 sprays by Each Nostril route daily. Active traMADol HCl 100 MG Tab take 1 tablet by mouth 4 times daily as needed for pain 5 Active warfarin (COUMADIN) 2 MG tablet Take 1 tablet (2 mg total) by mouth. Active benzonatate (TESSALON) 200 MG capsule Take 1 capsule (200 mg total) by mouth 3 (three) times daily as needed. FOR COUGH 5 Active celecoxib (CELEBREX) 100 MG capsule Take 1 capsule (100 mg total) by mouth 2 (two) times daily. 5 Active budesonide-form oterol (SYMBICORT) 80-4.5 MCG/ACT inhaler Inhale 2 puffs into the lungs 2 (two) times daily. 5 12/12/19 26 Active metoprolol succinate ER (TOPROL-XL) 50 MG 24 hr tablet TAKE 1 TABLET BY MOUTH ONCE DAILY IN THE MORNING 90 tablet 2 5 Active warfarin (COUMADIN) 5 MG tablet NEW DOSE: Take two tablets (10mg total) by mouth on Wednesday and evenings, then take one and one-half tablets (7.5mg total) by mouth all the rest. 150 tablet 5 Active warfarin (COUMADIN) 5 MG tablet NEW DOSE: Take 7.5 mg every Wed, Wed, Sat; 10 mg all other days. YOU NEED TO HAVE A PROTIME/INR DONE SOON POSSIBLE. The last one was done 05/14/25. 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 06/25/2016 TANNER (dyspnea on exertion) 06/25/2016 PAF (paroxysmal atrial fibrillation) 03/30/2016 Hyperlipidemia, mixed Resolved Problems Problem Noted Date Diagnosed Date Resolved Date High risk medication use 05/19/2018 Amnesia 12/24/2016 Encounters Date Type Department Care Team Description 09/25/2025 Anti-Coag Telephone Call [facility], [address] [address] Sandhya Garcia RN Anticoagulation (protime) 09/05/2025 Telephone [facility] THREE [facility], [facility] [address] [place], [place] [phone] Susan Carmen MD Refill Request (WARFARIN) 08/07/2025 Anti-Coag Telephone Call [facility] THREE [facility], [facility] [address] [place], [place] [phone] Sandhya Garcia, GABO Anticoagulation (protime) 08/06/2025 Orders Only [facility] THREE [facility], [facility] [address] [place] [place], [place] [address] Sandhya Garcia RN 08/03/2025 Telephone [facility] THREE [facility], [facility] [address] [place] [address] Sandhya Garcia RN Anticoagulation (Protime reminder) from Last 3 Months Immunizations Immunization Administration Dates Next Due Flucelvax 6 Months+ [...] Start Date Job End Date Works in [employer] store Not on file Not on file Not on file Not on file Not on file Not on file Not on file Last Filed Vital Signs Vital Sign Reading Time Taken Comments Blood Pressure 140/84 05/14/2025 2:41 PM CDT Pulse 84 05/14/2025 2:41 PM CDT Temperature 37.1 C (98.7 F) 03/01/2020 7:53 AM CDT Respiratory Rate 20 03/01/2020 7:53 AM CDT Oxygen Saturation 95% 05/14/2025 2:41 PM CDT Inhaled Oxygen Concentration - - Weight 89.4 kg (197 lb) 05/14/2025 2:41 PM CDT Height 177.8 cm (5' 10) 05/14/2025 2:41 PM CDT Body Mass Index 28.27 05/14/2025 2:41 PM CDT Plan of Treatment Upcoming Encounters Date Type Department Care Team (Late st Contact Info) Description 02/07/2026 12:15 PM CDT Office Visit [facility] THREE [facility] [place], [facility] [address] [place], [place] [phone] Susan Carmen MD Three [facility]. [address] [place], [place] [phone] Health Maintenance Due Date Last Done Comments ASCVD Statin 1942 DTaP, Tdap and Td Vaccines (1 - Tdap) 1961 Zoster Vaccines (1 of 2) 01/03/1992 Annual Medicare Wellness Visit 2007 RSV Immunization or 60+ Years (1 - 1-dose 75+ series) 2017 Pneumococcal Vaccine: 50+ Years (2 of 2 - PPSV23, PCV20, or PCV21) 08/28/2019 07/03/2019 ASCVD LDL 10/21/2024 10/21/2023, 1102/2021, 05/31/2020, Additional history exists COVID-19 Vaccine ( season) 2025 Influenza Adult (#1) 2025 08/23/2020, 09/06/20 16 Hepatitis A Vaccines Aged Out No long er eligible based on patient's age to complete this topic Meningococcal B Vaccine Aged Out No l onger eligible based on patient's age to complete this topic Meningococcal Vaccine Aged Out No chris prince eligible based on patient's age to complete this topic RSV Immunizations Under 20 Months Aged Out No longer eligible based on patient's age to complete this topic Procedures Procedure Name Priority Date/Time Associated Diagnosis Comments PT/INR (OUTSIDE LAB) Routine 09/24/2025 PROTIME (OUTSIDE LAB) Routine 08/06/2025 LIPID PANEL Routine 10/21/2023 from Last 3 Months or Most Recently Relevant to Health Maintenance Results * PT/INR (OUTSIDE LAB) (09/24/2025) INR WHOLE BLOOD 1.50 09/24/2025 us Default History Genericprovider LAB-OUTSIDE/ABST RACTED Final Result * PROTIME (OUTSIDE LAB) (08/06/2025) PROTIME 19.3 INR 1.9 08/06/2025 us Default History Genericprovider LAB-OUTSIDE/ABST RACTED Final Result * LIPID PANEL (10/21/2023) CHOLESTEROL 173 HDL 40 TRIGLYCERIDES 199 LDL (CALCULATED) 99 10/21/2023 us Default History Genericprovider LABORATORY Final Result from Last 3 Months or Most Recently Relevant to Health Maintenance Insurance [employer] Advance Directives Documents on File Type Date Recorded Patient Mirror Polisher Expl anation Advance Directives and Living Will 03/01/2020 1:47 PM 07/13/2005 POA FOR HEALTH CARE Power of Air Conditioning Service Technician 02/29/2020 7:57 AM * Full Code (Latest Code Status on File) Date Activated Date Inactivated Comments 02/29/2020 12:15 PM 03/01/2020 1:[address] Sweeper Relationship Specialty Start Date End Date uLke Duarte MD [address] [place] [phone] PCP - General INTERNAL MEDICINE 10/18/19 Susan Carmen MD Three [facility]. [address] [place] [address] [place] Client Relations Associate CARDIOVASCULAR DISEASE 04/07/16 Fly Crum MD Three [facility]. [address] [place], [place] [phone] EP Client Relations Associate Electrophysiology 07/10/16 Nando Adler MD [address] [place] [address] CARDIAC ELECTROPHYSIOLOGY 09/17/22
--- OUTSIDE RECORDS SUMMARY | 2025-10-03 11:00 | XMS_ITS | Encounter Summary ---
Author Organization [facility] Address [address] [place] [address] Care Team Providers Care Narrative Writer Name Role Phone Susan Carmen MD Unavailable [phone] Fly Crum MD Unavailable Luke Duarte MD Primary Care Provider [phone] Nando Adler MD Unavailable [phone] Encounter Details Date Type Department Care Team (Late st Contact Info) Description 02/28/2020 Hospital Orders Only 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 [facility] [address] [place], [place] [phone] documented as of this encounter Visit Diagnoses Not on filedocumented in this encounter Additional Health Concerns Infection Onset Date Last Indicated Resolved Time COVID-19 Rule Out 02/26/2020 02/26/2020 02/28/2020 8:44 AM CDT documented as of this encounter Care Teams Narrative Writer Relationship Specialty Start Date End Date Luke Duarte MD [address] [facility] [address] [place] [phone] PCP - General INTERNAL MEDICINE 10/18/19 Susan Carmen MD [facility]. [facility] [address] [place], [place] [phone] [place] Vice Chancellor CARDIOVASCULAR DISEASE 04/07/16 Fly Crum MD [facility]. [facility] [address] [place], [place] [address] EP Vice Chancellor Electrophysiology 07/10/16 Nando Adler MD [address] [place] [address] CARDIAC ELECTROPHYSIOLOGY 09/17/22 documented as of this encounter
--- OUTSIDE RECORDS SUMMARY | 2025-10-03 11:01 | XMS_ITS | Encounter Summary ---
Author Organization [facility] Address [address] [place] [address] Phone Care Team Providers Care Digital Analyst Name Role Phone Kashmir Lopez MD Primary Care Provider Luke Duarte MD Primary Care Provider [phone] Encounter Details Date Type Department Care Team (Latest Contact Info) Description 11/16/2019 Orders Only [facility] Scanning, Provider Social History Tobacco Use Types Packs/Day Years Used Date Smoking Tobacco: Never Smokeless Tobacco: Never Alcohol Use Standard Drinks/Week Comments No 0 (1 standard drink = 0.6 oz pur e alcohol) Sex and Gender Information Value Date Recorded Sex Assigned at Not on file Legal Sex Male 1:59 AM APPLIED PSYCHOLOGY PROFESSOR Gender Identity Not on file Sexual Orientation Not on file documented as of this encounter Functional Status * BP Location Answer Date of Assessment Author Right arm 11/17/2019 11:05 AM APPLIED PSYCHOLOGY PROFESSOR Erasmo Salazar CMA * BP Location Answer Date of Assessment Author Right arm 11/17/2019 11:05 AM Erasmo Muñoz CMA documented as of this encounter Plan of Treatment Not on file documented as of this encounter Procedures Procedure Name Priority Date/Time Associated Diagnosis Comments SLEEP LAB/STUDY - RESULT 11/16/2019 documented in this encounter Results * SLEEP LAB/STUDY - RESULT (11/16/2019) us Provider Scanning Final Result documented in this encounter Visit Diagnoses Not on filedocumented in this encounter Care Teams Digital Analyst Relationship Specialty Start Date End Date Kashmir Lopez MD [address] [place] [address] PCP - General Internal Medicine 05/25/19 11/16/19 Luke Duarte MD [address] [place] [address] PCP - General Internal Medicine 11/17/19 documented as of this encounter
--- OUTSIDE RECORDS SUMMARY | 2025-10-03 11:01 | XMS_ITS | Encounter Summary ---
Author Organization [facility] Address [address] [place] [address] Care Team Providers Care Swimming Pool Service Technician Name Role Phone Susan Carmen MD Unavailable Fly Crum MD Unavailable Luke Duarte MD Primary Care Provider [phone] Nando Adler MD Unavailable [phone] Encounter Details Date Type Department Care Team (Late Contact Info) Description 11/17/2019 Abstract [facility] at [address] [address] Gayatri Polanco MA Social History [...] Department Care Team (Late Contact Info) Description 02/07/2026 12:15 PM CDT Office Visit [facility] [address] Susan Carmen MD [facility] [address] [place], [place] [id number] documented as of this encounter Procedures Procedure [...] documented as of this encounter Care Teams Swimming Pool Service Technician Relationship Specialty Start Date End Date Luke Duarte MD [address] [id number] PCP - General INTERNAL MEDICINE 10/18/19 Susan Carm[facility] MD [facility] [address] [place] [address] Deputy Veterinary Practice Manager CARDIOVASCULAR DISEASE 04/07/16 Fly Crum MD [facility]. [address] [place] [address] EP Veterinary Practice Manager Electrophysiology 07/10/16 Nando Adler MD [address] [place] [address] CARDIAC ELECTROPHYSIOLOGY 09/17/22 documented as of this encounter
--- OUTSIDE RECORDS SUMMARY | 2025-10-03 11:01 | XMS_ITS | Encounter Summary ---
Author Organization [facility] Address [address] [place] [address] Phone Care Team Providers Care Sales Representative Graphic Art Name Role Phone Luke Duarte MD Primary Care Provider Encounter Details Date Type Department Care Team (Late st Contact Info) Description 09/25/2025 Telephone [facility] Medicine Cardiology [address] [facility] Advanced Medicine 8th Floor [address] [place] [id number] Nando Adler MD PhD [address] [facility] [address] [place] [address] Social History Tobacco Use Types Packs/Day Years [...] on file 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
--- OUTSIDE RECORDS SUMMARY | 2025-10-03 11:01 | XMS_ITS | Encounter Summary ---
Author Organization [facility] Address [address] [place] [address] Phone Care Team Providers Care Supervising Appraiser Name Role Phone Luke Duarte MD Primary Care Provider [phone] Encounter Details Date Type Department Care Team (Late st Contact Info) Description 09/10/2025 Results Follow-Up [facility] Cardiology [address] [facility] Advanced Medicine 8th Floor [address] [place] [phone] Nando Adler MD PhD [address] [facility] [address] [place] [address] ECG 12 lead Social History Tobacco Use Types Packs/Day Years [...] on file 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
--- OUTSIDE RECORDS SUMMARY | 2025-10-03 11:01 | XMS_ITS | Encounter Summary ---
Author Organization [facility] Address [address] [place] [address] Care Team Providers Care Waste Disposal Plant Operator Name Role Phone Susan Carmen MD Unavailable [phone] Luke Duarte MD Primary Care Provider [phone] Fly Crum MD Unavailable Kashmir Lopez MD Primary Care Provider [phone] Luke Duarte MD Primary Care Provider [phone] Nando Adler MD Unavailable [phone] Encounter Details Date Type Department Care Team (Late st Contact Info) Description 11/29/2017 Abstract [facility] at [address] [address] Gayatri Polanco MA Social History [...] CDT [facility] [facility] [address] [place] [address] Susan Carmen MD Three [facility]. [address] [place] [address] documented as of this encounter Procedures Procedure [...] documented as of this encounter Care Teams Waste Disposal Plant Operator Relationship Specialty Start Date End Date Luke Duarte MD [facility]. [address] [address] PCP - General INTERNAL MEDICINE 03/18/16 10/17/18 Kashmir Lopez MD [address] [place] [address] PCP - General INTERNAL MEDICINE 10/18/18 10/17/19 Luke Duarte MD [address] [place] [phone] PCP - General INTERNAL MEDICINE 10/18/19 Susan Carmen MD [facility]. [facility] [address] [place] [address] Strunk Mathematical Statistician CARDIOVASCULAR DISEASE 04/07/16 Fly Crum MD [facility]. [facility] [address] [place] [address] EP Mathematical Statistician Electrophysiology 07/10/16 Nando Adler MD [address] [place] [address] CARDIAC ELECTROPHYSIOLOGY 09/17/22 documented as of this encounter
== END 2025-10-03 09:45 | disposition home or self-care (01) ==
PROVIDERS: PCP Internal Medicine; Visit Provider Internal Medicine
DX: G56.03 Carpal tunnel syndrome, bilateral upper limbs (principal); G56.23 Lesion of ulnar nerve, bilateral upper limbs
CPT/HCPCS: 95886; 95911